=== PATIENT | female | born 1930 | race Caucasian/White ===

== ENCOUNTER 2017-06-05 17:03 | Observation (INO) ==
--- NOTE | 2017-06-05 17:28 | Emergency Department Note ---
Disposition Clinical Impression: Hyperkalemia Stroke Qualifiers: CVA mechanism: other Qualified Code(s): I63.8 - Other cerebral infarction Leukocytosis Qualifiers: Leukocytosis type: unspecified Qualified Code(s): D72.829 - Elevated white blood cell count, unspecified Disposition: Admitted As Inpatient Condition: Fair Forms: ED Satisfaction Letter Time of Disposition: 18:51 Neuro HPI - General Chief Complaint: ED Neuro Symptoms/Deficit Stated Complaint: AMS Source: family Limitations: no limitations Nursing Notes Reviewed: Yes Vital Signs Reviewed: Yes - History of Present Illness HPI Narrative: 86-year-old female past medical history of hypertension, TIAs presents to the emergency department with a last known well at 3:00 right before being seen at the eye doctor. Patient is having left-sided facial weakness, slurred and dysarthric speech, right leg weakness. Patient is currently not on any blood thinners at this time. Patient is on aspirin. - Related Data Home Medications: Home Medications Medication Instructions Recorded Confirmed Aspirin [Adult Low Dose Aspirin EC] 81 mg PO DAILY 10/02/15 10/31/15 Calcium Carbonate/Vitamin D3 1 tab PO DAILY 10/02/15 10/31/15 [Calcium 600 + Vit D Tablet] Glucosamine HCl/Chondr [place] A Na 1 tab PO BID 10/02/15 10/31/15 [[facility] Glucosamine-Chondr Tablet] Rob[place]-3/Dha/Epa/Fish Oil [Fish Oil 1,500 mg PO DAILY 10/02/15 10/31/15 Dr 500 mg Softgel] Vit A/Vit C/Vit E/Zinc/Copper 1 tab PO DAILY 10/02/15 10/31/15 [Preservision Areds Tablet] Lidocaine [Lidoderm] 1 patch TP DAILY 10/31/15 10/31/15 Metoprolol [Lopressor] 25 mg PO BID 10/31/15 10/31/15 traMADol [Ultram] 50 mg PO TID PRN 10/31/15 10/31/15 Previous Rx's Medication Instructions Recorded Atorvastatin [Lipitor] 40 mg PO HS #30 tablet 11/02/15 Allergies/Adverse Reactions: Allergies Allergy/AdvReac Type Severity Reaction Status Date / Time Cyproheptadine Allergy Rash Verified 10/31/15 19:21 [From Periactin] Erythromycin Base Allergy Rash Verified 10/31/15 19:21 [From Ilosone] NSAIDS (Non-Steroidal Allergy Rash Verified 10/31/15 19:21 Anti-Inflamma nutri sweet Allergy Rash Uncoded 10/02/15 12:16 All systems ED: reviewed and negative except as stated. Review of Systems: As Per HPI Neurological: Reports: weakness, confusion. Denies: headache Past Medical History - Past Medical History Medical history: Reports: hypertension, TIA, other Surgical history: Reports: cancer surgery (precancerous rectal lesions), cataract Psychiatric history: Reports: no psych history - Social History Smoking Status: Never smoker Smokeless Tobacco Status: No Alcohol use: Reports: none Drug use: Reports: none Physical Exam General: Well Appearing, in no acute distress Head: autraumatic, EOMI, no conjuncitval pallor, no scleral icterus, Mouth: oral mucous membranes moist Neck: neck soft, trachea midline Chest:: Equal chest wall rise Lungs: Normal lungs sounds bilaterally, no wheezes, no respiratory distress Heart: normal heart sounds, normal rate and rhythm, Abdomen: soft, non-tender, no rigidity, no guarding, no rebdound tenderness Lower Extremities: no pedal edema, calves non-tender Integumentary: Skin warm, dry, and intact Neuro: Alert and oriented to person, place, time. See NIH stroke scale Psych: normal affect, normal mood - General Limitations: no limitations General appearance: alert, in no apparent distress Course Vital Signs Temperature 98 F 06/05/17 17:08 Pulse Rate 67 06/05/17 17:08 Respiratory Rate 18 06/05/17 17:08 Blood Pressure 172/85 06/05/17 17:08 O2 Sat by Pulse Oximetry 98 06/05/17 17:08 Temperature 98 F 06/05/17 17:08 Pulse Rate 97 06/05/17 18:14 Respiratory Rate 16 06/05/17 18:14 Blood Pressure 198/97 06/05/17 18:14 O2 Sat by Pulse Oximetry 96 06/05/17 18:14 Oxygen Delivery Oxygen Delivery Room Air Neuro Symptoms/Deficit - MDM Narrative Medical decision making narrative: 86-year-old female presents to the emergency department with a NIH stroke scale of 3. Her last well was at 15:00. We initiated stroke protocol. I have discussed risks and benefits of using TPA. Patient has not had any recent surgeries. Patient is not on blood thinners. CT of the head without contrast was obtained and did not reveal any acute intracranial changes. Neurologist from [facility] was consulted and there was some confusion as to the true last known well as there was reports of slurring of speech at 1330. The neurologist recommended a CTA of her head and neck to be performed. Patient does have a leukocytosis of 15.2 here. I do not suspect an infection at this time. Patient is not tachycardic and does not meet any other criteria for source of infection. Patient denies any symptoms of dysuria. I have however, ordered a urinalysis on this patient. Results of this urinalysis are pending. I spoke with Dr. De Anda, the neurologist here, and he agreed to come by and see the patient tomorrow. I spoke with Dr. Shepherd, the admitting hospitalist, she agreed to accept the patient for admission. Patient was hemodynamically stable and not in any acute distress at time of admission. I spoke with the family and patient at bedside and they agreed with the plan to keep her here. We are currently pending imaging of a CTA of the head and neck as well as urinalysis. Head CT 06/05/17 17:24 IMPRESSION: No acute intracranial abnormality. If there is ongoing concern for acute infarct, MRI is more sensitive. Stable mild cerebral volume loss and mild-moderate white matter disease, the latter of which likely reflects sequela of chronic microvascular ischemia. Critical results were called by Dr. Austin Curtis to Armin Spangler on 06/05/2017 at 17:49. D/ / 06/05/2017 17:52:23 Austin Curtis / susana Interpreting Provider: Austin Curtis Vital Signs Temperature 98 F 06/05/17 17:08 Pulse Rate 67 06/05/17 17:08 Respiratory Rate 18 06/05/17 17:08 Blood Pressure 172/85 06/05/17 17:08 O2 Sat by Pulse Oximetry 98 06/05/17 17:08 Temperature 98 F 06/05/17 17:08 Pulse Rate 97 06/05/17 18:14 Respiratory Rate 16 06/05/17 18:14 Blood Pressure 198/97 06/05/17 18:14 O2 Sat by Pulse Oximetry 96 06/05/17 18:14 Oxygen Delivery Oxygen Delivery Room Air - Medical Records Medical records reviewed: Yes I reviewed the patient's medical records. - Lab Data Lab results reviewed: Yes I reviewed the patient's lab results. Result diagrams: 06/05/17 17:53 06/05/17 17:53 Lab Results 06/05/17 06/05/17 06/05/17 Range/Units 17:07 17:53 17:53 WBC 15.2 H (4.3-11.1) K/mcL RBC 4.89 (3.82-4.97) M/mcL Hgb 14.7 (11.5-15.4) g/dL Hct 45.8 H (35.3-44.9) % MCV 93.7 (83.0-100.0) fL MCH 30.1 (28.0-33.3) pg MCHC 32.1 (31.6-35.5) g/dL RDW 14.2 (11.5-14.5) % Plt Count 183 (140-400) K/mcL MPV 11.2 (9.4-12.4) fL Immature Gran % 0.5 (0-4) % Seg Neutrophils % 59.7 % Lymphocytes % 25.7 % Monocytes % 13.1 % Eosinophils % 0.7 % Basophils % 0.3 % Neutrophils # 9.1 H (1.6-8.9) K/mcL Lymphocytes # 3.9 (0.6-4.6) K/mcL Monocytes # 2.0 H (0.0-1.3) K/mcL Eosinophils # 0.1 (0.0-0.6) K/mcL Basophils # 0.1 (0.0-0.2) K/mcL Sodium 140 (136-145) mEq/L Potassium 5.0 H (3.5-4.5) mEq/L Chloride 106 (98-109) mEq/L Carbon Dioxide 26 (19-29) mEq/L BUN 21 H (7-20) mg/dL Creatinine 1.06 (0.57-1.11) mg/dL Est GFR ( Amer) 59 L (> 60) Est GFR (Non-Af Amer) 49 L (> 60) BUN/Creatinine Ratio 20 (6-26) Glucose 93 (70-99) mg/dL POC Glucose 85 (58-89) Calculated Osmolality 293 (280-300) Calcium 10.1 (8.6-10.8) mg/dL Troponin I (0-0.03) ng/mL 06/05/17 Range/Units 17:53 WBC (4.3-11.1) K/mcL RBC (3.82-4.97) M/mcL Hgb (11.5-15.4) g/dL Hct (35.3-44.9) % MCV (83.0-100.0) fL MCH (28.0-33.3) pg MCHC (31.6-35.5) g/dL RDW (11.5-14.5) % Plt Count (140-400) K/mcL MPV (9.4-12.4) fL Immature Gran % (0-4) % Seg Neutrophils % % Lymphocytes % % Monocytes % % Eosinophils % % Basophils % % Neutrophils # (1.6-8.9) K/mcL Lymphocytes # (0.6-4.6) K/mcL Monocytes # (0.0-1.3) K/mcL Eosinophils # (0.0-0.6) K/mcL Basophils # (0.0-0.2) K/mcL Sodium (136-145) mEq/L Potassium (3.5-4.5) mEq/L Chloride (98-109) mEq/L Carbon Dioxide (19-29) mEq/L BUN (7-20) mg/dL Creatinine (0.57-1.11) mg/dL Est GFR ( Amer) (> 60) Est GFR (Non-Af Amer) (> 60) BUN/Creatinine Ratio (6-26) Glucose (70-99) mg/dL POC Glucose (58-89) Calculated Osmolality (280-300) Calcium (8.6-10.8) mg/dL Troponin I 0.00 (0-0.03) ng/mL - Radiology Data Radiology results reviewed: Yes I reviewed the patient's radiology results. - EKG Data EKG attestation: Yes I reviewed and interpreted this EKG. EKG results narrative: 17:21 Ventricular rate 63 bpm, UT interval 163 ms, QRS duration 140 ms, QTC 430 ms, QTC [address] changes on his electrocardiogram, left axis deviation. There is no ST changes noted they provides evidence of ischemia There is a right bundle branch block. This EKG is the same as her previous one performed on October 31, 2015 NIH Stroke Scale - Level of Consciousness LOC: Alert - LOC Questions LOC Questions: Answers both correctly - LOC Commands LOC Commands: Performs both correctly - Best Gaze Best Gaze: Normal - Visual Visual: No visual loss - Facial Palsy Facial Palsy: Minor asymmetry on smiling, flattened nasolabial fold - Motor Arms Motor Arm-Left: No drift for 10 seconds Motor Arm-Right: No drift for 10 seconds - Motor Legs Motor Leg-Left: No drift for 5 seconds Motor Leg-Right: Drift, does NOT hit bed - Limb Ataxia Limb Ataxia: Normal, No Ataxia - Sensory Sensory: Normal - Best Language Best Language: No aphasia - Dysarthria Dysarthria: Mild, slurs some words - Extinction and Inattention Extinction and Inattention: Normal - NIHSS Total Score NIHSS Total Score: 3 TPA Checklist - LKW: 3-4.5 hrs Add. Warnings/Precautions Patient/family understanding: The patient/family members have been counseled and understood the risk, benefit , and alternatives of treatment.
--- NOTE | 2017-06-05 17:47 | Emergency Department Note ---
START Narrative - START START: I examined this patient and my medical decision-making was reviewed with the Resident Physician. I agree with the documented findings, disposition and treatment plan as described except to the extent set forth below. Stroke symptoms started 1500, NIH 3. Stroke alert called, although pt not a candidate for tPA given NIH of only 3 and rapidly improving deficits.
[2017-06-05 18:00] LABS: Basophils # 0.1 K/mcL (0.0-0.2); Basophils % 0.3 %; Eosinophils # 0.1 K/mcL (0.0-0.6); Eosinophils % 0.7 %; Hematocrit 45.8 % (35.3-44.9); Hemoglobin 14.7 g/dL (11.5-15.4); Immature Granulocytes % 0.5 % (0-4); Lymphocytes # 3.9 K/mcL (0.6-4.6); Lymphocytes % 25.7 %; Mean Corpuscular HGB Conc 32.1 g/dL (31.6-35.5); Mean Corpuscular Hemoglobin 30.1 pg (28.0-33.3); Mean Corpuscular Volume 93.7 fL (83.0-100.0); Mean Platelet Volume 11.2 fL (9.4-12.4); Monocytes % 13.1 %; Neutrophils # 9.1 K/mcL (1.6-8.9); Platelet Count 183 K/mcL (140-400); Red Blood Count 4.89 M/mcL (3.82-4.97); Red Cell Distribution Width 14.2 % (11.5-14.5); Segmented Neutrophils % 59.7 %
[2017-06-05 18:14] LABS: Calcium 10.1 mg/dL (8.6-10.8)
[2017-06-05 19:12] LABS: Prothrombin Time 11.1 Seconds (9.4-12.1)
[2017-06-05 19:15] LABS: Activated Partial Thrombo Time 26.7 Seconds (26.0-36.0)
[2017-06-05] MEDS ORDERED: Naloxone 0.4 MG/ML INJ IVP PRN (19:49)
[2017-06-05 20:38] LABS: Bilirubin,Urine Negative (Negative); Blood,Urine Negative (Negative); Clarity,Urine Clear (Clear); Color,Urine Yellow (Yellow); Glucose,Urine (UA) Normal (Normal); Ketones,Urine 15 mg/dL (Negative); Leukocyte Esterase,Urine Negative (Negative); Nitrite,Urine Negative (Negative); PH,Urine 6.5 pH Units (5.0-8.0); Protein,Urine Negative (Neg-Trace); Specific Gravity,Urine 1.026 (1.010-1.025); Urobilinogen,Urine Normal (Normal)
--- NOTE | 2017-06-05 21:22 | Internal Med History&Physical ---
Date of Encounter: 06/05/17 Time of Encounter: 21:22 Assessment and Plan (1) TIA (transient ischemic attack) Current visit: Yes Status: Acute Patient presented with slurred speech, dysarthria, RLE weakness, Symptoms have mostly resolved at my time of review Brain MRi shows some possible encephalitic picture Patient has no neurologic symptoms suggestive of this, no fever, no alteration in consciousness Head and Neck CTA with no obstruction/aneurysm Obtain ECHO Neuro eval PTOT and Speech eval Continue NIHSS q4 for now Bedside swallow test and patient may be fed if she passes the test Continue home dose of ASA and Lipitor Qualifiers: Transient cerebral ischemia type: unspecified Qualified Code(s): G45.9 - Transient cerebral ischemic attack, unspecified (2) Hypertensive urgency Current visit: Yes Status: Acute Resume home doses of metoprolol Hydralazine 10mg qh prn Increase metoprolol and add amlodipine as indicated Continue to monitor (3) Dementia Current visit: Yes Status: Chronic Resume home meds Qualifiers: Dementia type: Alzheimer's disease Alzheimer's disease onset: unspecified onset Dementia behavioral disturbance: without behavioral disturbance Qualified Code(s): G30.9 - Alzheimer's disease, unspecified; F02.80 - Dementia in other diseases classified elsewhere without behavioral disturbance; F02.80 - Dementia in other diseases classified elsewhere without behavioral disturbance; F02.80 - Dementia in other diseases classified elsewhere without behavioral disturbance (4) Leukocytosis Current visit: Yes Status: Acute Possibly from stress No focus of infection, no fever UA is ordered and pending, will follow Rpt CBC am Qualifiers: Leukocytosis type: unspecified Qualified Code(s): D72.829 - Elevated white blood cell count, unspecified (5) Hyperkalemia Current visit: Yes Status: Acute K 5.0 on arrival Renal function otherwise at baseline 15gm kayexalate given Rpt Chem a.m Internal Medicine - H&P: HPI Chief complaint: Neurologic symptoms Admitted From: Home Plans for Post Hospital Care: Home History of present illness: Ms. Byrnes is a 86 year old female Seen and evaluated at bedside with daughter and Said to be in her usual state of health till about 1500 this afternoon at the ophthalmologists where she developed slurred speech , difficulty finding words and RLE weakness. Per her he had to assist her in getting into the car. Her neurologic symptoms have mostly resolved at time of eval. She has a history of similar symptoms about a year and a half ago, and is on ASA and Lipitor at home Apart from being hard of hearing, patient denies any other complains, ROS is unremarkable She has had uncontrolled blood pressure since arrival Physical exam in ER at time of arrival revealed NIHSS of 3 for facial droop, speech deficit and extremity weakness. [facility] neurology consulted, no indication for TPA Work up significant for mild hyperkalemia and leukocytosis Past Med Surg Social Fam HX - Past Medical History Medical history: hypertension, TIA, other Psychiatric history: no psych history - Past Surgical History Surgical History: cancer surgery (precancerous rectal lesions), cataract - Social History Smoking Status: Never smoker Smokeless Tobacco Status: No Alcohol use: none Drug use: none - Family History Mother Adopted: No Living Status: Hx Family Cancer: Yes (colon) Father Living Status: Hx Family Cardiac Disorders: Yes Internal Medicine - H&P: Meds Aspirin [Adult Low Dose Aspirin EC] 81 mg PO DAILY 10/02/15 [History] Calcium Carbonate/Vitamin D3 [Calcium 600 + Vit D Tablet] 1 tab PO DAILY [History] Vit A/Vit C/Vit E/Zinc/Copper [Preservision Areds Tablet] 1 tab PO DAILY [History] Lidocaine [Lidoderm] 1 patch TP DAILY 10/31/15 [History] Metoprolol [Lopressor] 25 mg PO BID 10/31/15 [History] Atorvastatin [Lipitor] 40 mg PO HS #30 tablet 11/02/15 [Rx] Donepezil [Aricept] 10 mg PO HS 06/05/17 [History] 3 Allergy/AdvReac Type Severity Reaction Status Date / Time Cyproheptadine Allergy Rash Verified 10/31/15 19:21 [From Periactin] Erythromycin Base Allergy Rash Verified 10/31/15 19:21 [From Ilosone] NSAIDS (Non-Steroidal Allergy Rash Verified 10/31/15 19:21 Anti-Inflamma nutri sweet Allergy Rash Uncoded 10/02/15 12:16 All Systems PM: A 10-system review of systems was performed and is negative for pertinent findings except as documented above in the HPI. - Constitutional Constitutional: as per HPI - EENT Eyes: as per HPI Nose, mouth and throat: as per HPI - Cardiovascular Cardiovascular ROS IM: as per HPI - Respiratory Respiratory: as per HPI - Gastrointestinal Gastrointestinal: as per HPI - Genitourinary Genitourinary: as per HPI - Musculoskeletal Musculoskeletal ROS IM: as per HPI - Integumentary Integumentary IM: as per HPI - Neurological Neurological ROS: as per HPI - Hematologic/Lymphatic Hematologic/Lymphatic: as per HPI - Constitutional Vitals: Temp Pulse Resp BP Pulse Ox 98 F 66 16 200/90 95 06/05/17 17:08 06/05/17 19:15 06/05/17 19:15 06/05/17 19:15 06/05/17 19:15 General appearance: Present: A&O X 2, pleasant, no acute distress - Head Head exam: Present: atraumatic, normocephalic - Eye Eye exam: Present: PERRL, conjuntiva pink, sclera anicteric - ENT ENT exam: Present: mucous membranes moist - Neck Additional comments: No carotid bruit - Respiratory Respiratory exam: Present: CTAB. Absent: accessory muscle use, rales, rhonchi, wheezes - Cardiovascular Cardiovascular exam: Present: RRR, +S1, +S2. Absent: diastolic murmur, gallop, rubs, systolic murmur - GI/Abdominal GI/Abdominal exam: Present: normal bowel sounds, soft, no peritoneal signs. Absent: distended, tenderness - Extremities Exam Extremities exam: Present: warm, radial pulses palpable and symmetrical. Absent : calf tenderness, cyanotic, pedal edema - Neurological Exam Neurological exam: Present: alert, CN II-XII intact, strengths equal and symetr throughout. Absent: pronater drift, facial droop, speech deficit - Skin Skin exam: Present: dry, intact Internal Med - H&P Results - Labs CBC & Chem 7: 06/05/17 17:53 06/05/17 17:53 Labs: Urine 06/05/17 Range/Units 20:30 Urine Color Yellow (Yellow) Urine Clarity Clear (Clear) Urine pH 6.5 (5.0-8.0) pH Units Ur Specific [place] 1.026 H (1.010-1.025) Urine Protein Negative (Neg-Trace) mg/dL Urine Glucose (UA) Normal (Normal) mg/dL - Impressions ITS Impressions Brain MRI 06/05/17 19:51 IMPRESSION: No acute infarct, intracranial hemorrhage, or significant mass effect. Abnormal T2/FLAIR signal within bilateral insular cortex. Findings could represent nonspecific infectious and/or inflammatory encephalitis, or sequela of prior ischemia. Possibility of herpes encephalitis should be excluded. Clinical correlation and/or correlation with CSF sampling is recommended. Moderate amount of nonspecific T2 hyperintense white matter lesions, which are most often attributed to chronic small vessel ischemic white matter disease. D/ / Jose Card MD / Jose Card MD Interpreting Provider: Jose Card MD - Stroke Is the patient on any antithrombotics?: Yes Are there any contradictions to antithrombotics?: No Contraindication Not Initiating IV-Tpa: Not Indicated - Symptoms Rapidly Improving Onset of Symptoms Date: 06/05/17 Onset of Symptoms Time: 15:00 Symptom Onset Unknown: No
[2017-06-06] MEDS ORDERED: *HR* Enoxaparin 40 MG/0.4 ML SYRINGE SQ SCH (06:00)
[2017-06-06] MEDS: amLODIPine 5 MG TABLET PO SCH ×2 (06:08→10:29)
[2017-06-06 06:48] LABS: Basophils # 0.1 K/mcL (0.0-0.2); Basophils % 0.3 %; Eosinophils # 0.1 K/mcL (0.0-0.6); Eosinophils % 0.9 %; Hemoglobin 14.1 g/dL (11.5-15.4); Immature Granulocytes % 0.5 % (0-4); Lymphocytes # 3.7 K/mcL (0.6-4.6); Lymphocytes % 25.1 %; Mean Corpuscular Hemoglobin 29.5 pg (28.0-33.3); Mean Corpuscular Volume 92.1 fL (83.0-100.0); Mean Platelet Volume 11.4 fL (9.4-12.4); Monocytes # 1.9 K/mcL (0.0-1.3); Monocytes % 13.1 %; Neutrophils # 8.8 K/mcL (1.6-8.9); Platelet Count 188 K/mcL (140-400); Red Blood Count 4.78 M/mcL (3.82-4.97); Red Cell Distribution Width 14.1 % (11.5-14.5); Segmented Neutrophils % 60.1 %
[2017-06-06 06:59] LABS: BUN/Creatinine Ratio 18 (6-26); Blood Urea Nitrogen 18 mg/dL (7-20); Calcium 9.5 mg/dL (8.6-10.8); Carbon Dioxide 24 mEq/L (19-29); Chloride 110 mEq/L (98-109); Cholesterol 100 mg/dL (< 200); Glucose 99 mg/dL (70-99); HDL Cholesterol 33 mg/dL (40-59); LDL Cholesterol,Calculated 53 mg/dL (0-99); Osmolality,Calculated 292 (280-300); Potassium 4.9 mEq/L (3.5-4.5); Sodium 140 mEq/L (136-145); Triglycerides 72 mg/dL (< 150); eGFR For African Americans > 60 (> 60); eGFR For Non-African Americans 53 (> 60)
[2017-06-06 07:19] LABS: Thyroid Stimulating Hormone 3.231 mcIU/mL (0.350-4.840)
[2017-06-06] MEDS: Cholecalciferol (D-3) 1,000 UNIT TABLET PO SCH (10:27)
[2017-06-06] MEDS: Aspirin Enteric Coated 81 MG Tablet PO SCH (10:27)
[2017-06-06] MEDS: Multivit/Ca/Min/Fe/FA 1 TAB TABLET PO SCH (10:27)
--- NOTE | 2017-06-06 12:02 | Internal Med Progress Note ---
<Rasta Vega - Last Filed: 06/06/17 15:13> Date of Encounter: 06/06/17 Time of Encounter: 11:15 - Assessment and plan (1) Transient neurological symptoms Current Visit: Yes Status: Acute Assessment and plan: Patient presented with slurred speech, dysarthria, and RLE weakness Found to be hypertensive with blood pressure as high as 222 systolic Symptoms had mostly resolved by the time she was seen by the better Brain MRI showed nonspecific infectious/inflammatory encephalitis versus sequela of prior ischemia. No CVA/TIA identified acutely Patient has been afebrile, without altered consciousness, no nuchal rigidity, no photophobia would be suggestive of encephalitis Head and Neck CTA with no obstruction/aneurysm Echo showed EF 65%, mild concentric left hypertrophy, mild left ventricular diastolic dysfunction PT recommends SNF/ECF Patient underwent speech evaluation that was not concerning Neurology has been consulted and appreciate recommendations for continued management/care Continue home dose of ASA and Lipitor Consider discontinuation of Lipitor given patient age and low-cholesterol (2) Hypertensive urgency Current Visit: Yes Status: Acute Assessment and plan: Patient presented with blood pressure of 222/94 and continue to have elevated blood pressure She was given her home dose metoprolol as well as started on amlodipine Over the next 24 hours resolution of her hypertension seen Hypertensive urgency versus hypertensive encephalopathy Hydralazine 10mg qh prn Metoprolol was increased Amlodipine 10 mg by mouth daily added Continue to monitor (3) Hyperkalemia Current Visit: Yes Status: Acute Assessment and plan: Patient had potassium 5.0 at admission Repeat potassium 4.9 Patient given 15 g Kayexalate at admission On recheck potassium in the morning consider additional Kayexalate if needed (4) Dementia Current Visit: Yes Status: Chronic Assessment and plan: Patient has history of dementia Currently alert and oriented 3 Resume home medications Qualifiers: Dementia type: Alzheimer's disease Alzheimer's disease onset: unspecified onset Dementia behavioral disturbance: without behavioral disturbance Qualified Code(s): G30.9 - Alzheimer's disease, unspecified; F02.80 - Dementia in other diseases classified elsewhere without behavioral disturbance; F02.80 - Dementia in other diseases classified elsewhere without behavioral disturbance; F02.80 - Dementia in other diseases classified elsewhere without behavioral disturbance (5) DVT prophylaxis Current Visit: No Status: Acute Assessment and plan: Lovenox 30 mg subcutaneous daily - Subjective Interval history: Patient seen and examined with and daughter in attendance. They report patient appears slightly weaker and slower than her baseline, but is otherwise back to normal. Patient denies having headaches, photophobia, phonophobia, neck pain, neck stiffness, altered mentation, or fever/chills. She states she overall feels well, though remembers what happened the day before. - Constitutional Vitals: Temp Pulse Resp BP Pulse Ox 98.0 F 58 12 152/86 98 06/06/17 11:37 06/06/17 11:37 06/06/17 11:37 06/06/17 11:37 06/06/17 11:37 General appearance: Present: A&O X 2, pleasant, no acute distress Exam: General: Cooperative, pleasant, no acute distress, alert and oriented 3, answers questions appropriately HEENT: Normocephalic, atraumatic, neck supple, trachea midline, no nuchal rigidity, Conjunctiva pink, sclera anicteric, EOMI, PERRL, oral mucosa moist, no orophargeal erythema or exudates Respiratory: No accessory muscle usage, clear to auscultation bilaterally, no wheezes/rhonchi/rales appreciated Cardiovascular: Regular rate and rhythm, S1 and S2 present, no murmurs/rubs/ gallops/clicks appreciated GI/abdominal: Nondistended, nontender, soft, normal bowel sounds, no peritoneal signs Extremities: No calf tenderness, noncyanotic, no pedal edema appreciated, warm, lower extremity pulses palpable and symmetrical Neurological: Alert and oriented 3, no facial droop, no focal deficits, cranial nerves II through XII grossly intact bilaterally, rapid alternating movements smooth with good benito, finger to nose smooth and accurate, sensation to gross touch intact in upper and lower extremities bilaterally, strength 5/5 in upper and lower extremities bilaterally, DTRs 2/4 in Achilles, patellar, brachioradialis, biceps, and triceps, pronator drift negative Internal Medicine: Result - Labs CBC & Chem 7: 06/06/17 06:32 06/06/17 06:32 Labs: Short CBC 06/06/17 Range/Units 06:32 WBC 14.6 H (4.3-11.1) K/mcL Hgb 14.1 (11.5-15.4) g/dL Hct 44.0 (35.3-44.9) % Plt Count 188 (140-400) K/mcL Neutrophils # 8.8 (1.6-8.9) K/mcL BMP 06/06/17 06:32 Sodium 140 Potassium 4.9 H Chloride 110 H Carbon Dioxide 24 BUN 18 Creatinine 0.99 Glucose 99 Calcium 9.5 Urine 06/05/17 Range/Units 20:30 Urine Color Yellow (Yellow) Urine Clarity Clear (Clear) Urine pH 6.5 (5.0-8.0) pH Units Ur Specific [place] 1.026 H (1.010-1.025) Urine Protein Negative (Neg-Trace) mg/dL Urine Glucose (UA) Normal (Normal) mg/dL - ABG Interpretation ABG results: PT/INR, D-dimer PT 11.1 Seconds (9.4-12.1) 06/05/17 18:54 - Impressions Impressions Brain MRI 06/05/17 19:51 IMPRESSION: 1. No acute infarct, intracranial hemorrhage, or significant mass effect. 2. Abnormal T2/FLAIR signal within bilateral insular cortex. Findings could represent nonspecific infectious and/or inflammatory encephalitis, or sequela of prior ischemia. Possibility of herpes encephalitis should be excluded. Clinical correlation and/or correlation with CSF sampling is recommended. 3. Moderate amount of nonspecific T2 hyperintense white matter lesions, which are most often attributed to chronic small vessel ischemic white matter disease. The findings were sent to the [facility] on 06/05/2017to be communicated to a licensed caregiver. D/ / 06/05/2017 21:28:03 Jose Card MD / ben Interpreting Provider: Jose Card MD - Stroke Is the patient on any antithrombotics?: No Are there any contradictions to antithrombotics?: No Contraindication Not Initiating IV-Tpa: Not Indicated - Symptoms Rapidly Improving Consult Discharge Plan - Plan Referrals: Alexa Prado CNP [Primary Care Provider] - 06/11/17 11:00 am <Mynor [place] H - Last Filed: 06/06/17 16:24> Date of Encounter: 06/06/17 - Constitutional Vitals: Temp Pulse Resp BP Pulse Ox 98.3 F 86 14 125/64 96 06/06/17 15:01 06/06/17 15:01 06/06/17 15:01 06/06/17 15:01 06/06/17 15:01 Internal Medicine: Result - Labs CBC & Chem 7: 06/06/17 06:32 06/06/17 06:32 Labs: Short CBC 06/06/17 Range/Units 06:32 WBC 14.6 H (4.3-11.1) K/mcL Hgb 14.1 (11.5-15.4) g/dL Hct 44.0 (35.3-44.9) % Plt Count 188 (140-400) K/mcL Neutrophils # 8.8 (1.6-8.9) K/mcL BMP 06/06/17 06:32 Sodium 140 Potassium 4.9 H Chloride 110 H Carbon Dioxide 24 BUN 18 Creatinine 0.99 Glucose 99 Calcium 9.5 Urine 06/05/17 Range/Units 20:30 Urine Color Yellow (Yellow) Urine Clarity Clear (Clear) Urine pH 6.5 (5.0-8.0) pH Units Ur Specific [place] 1.026 H (1.010-1.025) Urine Protein Negative (Neg-Trace) mg/dL Urine Glucose (UA) Normal (Normal) mg/dL - ABG Interpretation ABG results: PT/INR, D-dimer PT 11.1 Seconds (9.4-12.1) 06/05/17 18:54 - Impressions Impressions Brain MRI 06/05/17 19:51 IMPRESSION: 1. No acute infarct, intracranial hemorrhage, or significant mass effect. 2. Abnormal T2/FLAIR signal within bilateral insular cortex. Findings could represent nonspecific infectious and/or inflammatory encephalitis, or sequela of prior ischemia. Possibility of herpes encephalitis should be excluded. Clinical correlation and/or correlation with CSF sampling is recommended. 3. Moderate amount of nonspecific T2 hyperintense white matter lesions, which are most often attributed to chronic small vessel ischemic white matter disease. The findings were sent to the [facility]iology [facility] Communication [facility] on 06/05/2017to be communicated to a licensed caregiver. D/ / 06/05/2017 21:28:03 Jose Card MD / ben Interpreting Provider: Jose Card MD Echocardiogram 06/06/17 19:51 Impressions: LVEF 65%. Normal LV chamber size and function. Mild concentric left ventricular hypertrophy. Mild left ventricular diastolic dysfunction. Normal right ventricular structure and function. Mild pulmonic regurgitation. No evidence of pulmonary hypertension. Left Ventricular Wall Motion: Rest Echo Findings All wall segments showed normal motion. Findings: Study Quality * Technically adequate exam. ECG Findings * Normal sinus rhythm. Left Ventricle * LVEF 65%. * Normal LV chamber size and function. * Mild concentric left ventricular hypertrophy. * Mild left ventricular diastolic dysfunction. Right Ventricle * Normal right ventricular structure and function. Left Atrium * Mildly dilated left atrium. Right Atrium * Normal right atrial size. Aortic Valve * Trileaflet aortic valve. * Mildly sclerotic aortic valve leaflets. * No aortic regurgitation. * No aortic stenosis. Mitral Valve * Mild mitral annular calcification * Normal mitral valve function. * No mitral regurgitation. * No mitral stenosis. Tricuspid Valve * Normal tricuspid valve structure and function. * Trace tricuspid regurgitation. * No evidence of pulmonary hypertension. Pulmonic Valve * Normal pulmonic valve structure. * Mild pulmonic regurgitation. IVC * Normal IVC dimensions and inspiratory collapse. Aorta * Normally sized aortic root. Pericardium * There is a trivial pericardial effusion present. Pulmonary Artery * Normal visualized portions of the main pulmonary artery. - Attending Attestation Possible TIA Not showing symptoms of encephalitis Neurology recommendations appreciated I examined this patient and my medical decision-making was reviewed with the Resident Physician. I agree with the documented findings, disposition and treatment plan as described except to the extent set forth below.
--- NOTE | 2017-06-06 13:10 | Electrocardiograph Report ---
[place] [id number] Test Date: 2017-06-05 Pat Name: Krista Byrnes Department: 103 Room: [facility] Gender: F Box Car Bracer: VENITA : [id number] Requested By: Armin Spangler Order Number: [id number] Reading MD: Priyank Gama MD Measurements Intervals [place] Rate: 63 P: 62 AK: 163 QRS: -3 QRSD: 140 T: 16 QT: 430 QTc: 437 Interpretive Statements SINUS RHYTHM RIGHT BUNDLE BRANCH BLOCK Electronically Signed On 06-06-2017 13:09:07 EST by Priyank Gama MD
--- NOTE | 2017-06-06 18:32 | Neurology - Consult Note ---
Date of Encounter: 06/06/17 Time of Encounter: 18:21 Assessment and Plan (1) TIA (transient ischemic attack) Current Visit: Yes Status: Acute Patient has transient mental status changes, speech difficulty lasting less than few hours with rapid improvement. Patient was found to have elevated blood pressure which is likely contributing. 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 MRI of brain reviewed and she does have moderate white matter T2/FLAIR signal changes likely small vessel ischemic changes. Small patchy T2/FALIR changes at the bilateral insula cortex more consistent with small vessel ischemia. Also this area can be affected in HSV the signal changes tend to be wider spread than what is shown on this MRI. Clinical symptoms, physical examination and radiological findings not consistent with HSV encephalitis. CSF study not necessary. No anti viral IV or oral therapy needed in my opinion. Will recommend an routine EEG in AM to assess possibility of partial seizure, although this is thought to be less likely. Please continue medical and supportive. Patient needs social placement evaluation since she lives with elderly who may have difficulty taking care of her due to her medical illness and weakness. Qualifiers: Transient cerebral ischemia type: unspecified Qualified Code(s): G45.9 - Transient cerebral ischemic attack, unspecified History of Present Illness Chief complaint: altered mental status HPI: Ms. Byrnes is a 86 year old female with PMH significant for HTN, history of TIA, weakness, Parkinson features, history of CVA who developed acute onset of mental status changes difficulty falling commands and weakness. She was initially admitted for work up for possible stroke. Patient's provided current illness. He brought the patient to an eye doctors yesterday. Apparently, during the testing, noticed the patient was not able to follow eye doctor's commands during eye testing. The more she was told to do the less she was able to follow. When they get out to the car the patient was found to have weakness and her behavior changed and she was not able to keep conversation and she would say half sentence and would drift away. She was also weak and he has to life her legs to get into the car. Initial CT of head showed no acute intracranial abnormality. She also had CTA of neck and brain showing no significant arterial stenosis. She completed an MRI of brain today with the following report: MR/MR head/brain wo con IMPRESSION: No acute infarct, intracranial hemorrhage, or significant mass effect. Abnormal T2/FLAIR signal within bilateral insular cortex. Findings could represent nonspecific infectious and/or inflammatory encephalitis, or sequela of prior ischemia. Possibility of herpes encephalitis should be excluded. Clinical correlation and/or correlation with CSF sampling is recommended. Moderate amount of nonspecific T2 hyperintense white matter lesions, which are most often attributed to chronic small vessel ischemic white matter At the time of this interview the patient has been doing better. She feels weak though but her speech and thought process have improved to her baseline per her . Patient states that she was trying to say something and all of a sudden she lost it. She has no headache, no fever.She does have elevated WBC. Patient's says that the patient had a similar episode about 2 years ago. Past Med Surg Social Fam HX - Past Medical History Medical history: hypertension, TIA, other Psychiatric history: no psych history - Past Surgical History Surgical History: cataract - Social History Smoking Status: Never smoker Smokeless Tobacco Status: No Alcohol use: none Drug use: none - Family History Mother Adopted: No Living Status: Hx Family Cancer: Yes (colon) Father Living Status: Hx Family Cardiac Disorders: Yes Medications and Allergies Aspirin [Adult Low Dose Aspirin EC] 81 mg PO DAILY 10/02/15 [History] Calcium Carbonate/Vitamin D3 [Calcium 600 + Vit D Tablet] 1 tab PO DAILY [History] Vit A/Vit C/Vit E/Zinc/Copper [Preservision Areds Tablet] 1 tab PO DAILY [History] Lidocaine [Lidoderm] 1 patch TP DAILY 10/31/15 [History] Metoprolol [Lopressor] 25 mg PO BID 10/31/15 [History] Atorvastatin [Lipitor] 40 mg PO HS #30 tablet 11/02/15 [Rx] Donepezil [Aricept] 10 mg PO HS 06/05/17 [History] 3 Allergy/AdvReac Type Severity Reaction Status Date / Time Cyproheptadine Allergy Rash Verified 10/31/15 19:21 [From Periactin] Erythromycin Base Allergy Rash Verified 10/31/15 19:21 [From Ilosone] NSAIDS (Non-Steroidal Allergy Rash Verified 10/31/15 19:21 Anti-Inflamma nutri sweet Allergy Rash Uncoded 10/02/15 12:16 All Systems: A 10-system review of systems was performed and is negative for pertinent findings except as documented above in the HPI. Physical Examination - Vital Signs Vital Signs: Initial Vital Signs Temp Pulse Resp BP Pulse Ox 98 F 67 18 172/85 98 06/05/17 17:08 06/05/17 17:08 06/05/17 17:08 06/05/17 17:08 06/05/17 17:08 - Constitutional General appearance: comfortable - Neurologic Sensorimotor examination: intact (Grossly intact. Patient is in sitting and drinking coffee. She has no discomforts. ) Detailed motor examination: other (Muscle power symmetrical and 5/5 but feels weak subjectively. able to stand up on her own) Motor examination - right side: 5/5: deltoids, biceps, triceps, wrist flexion, wrist extension, well servicing rig operator, hip flexors, tibialis Anterior, quadriceps, toe extension (EHL), plantarflexion Motor examination - left side: 5/5: deltoids, biceps, triceps, wrist flexion, wrist extension, hip flexors, well servicing rig operator, quadriceps, tibialis Anterior, toe extension (EHL), plantarflexion Detailed sensory examination: other (Grossly intact) Mental Status Examination: awake, alert, oriented to person, oriented to place, oriented to time, follows commands appropriately, answers questions appropriately, lucid, makes eye contact, follows simple commands Cranial nerve examination: PERRL, EOMI, visual delcid intact, corneal reflexes brisk symmetrically, sensory to face intact, mastication intact, no facial asymmetry is present, no dysarthria, hearing is intact symmetrically, soft palate elevates bilaterally upon phonation, gag reflex intact, flexes SCM and trapezius muscles symmetrically with full power, tongue protrudes midline, no atrophy or facial fasiculations present Results - Laboratory Findings CBC and BMP: 06/06/17 06:32 06/06/17 06:32 Abnormal lab findings: Abnormal lab results WBC 14.6 K/mcL (4.3-11.1) H 06/06/17 06:32 Monocytes # 1.9 K/mcL (0.0-1.3) H 06/06/17 06:32 Potassium 4.9 mEq/L (3.5-4.5) H 06/06/17 06:32 Chloride 110 mEq/L (98-109) H 06/06/17 06:32 Est GFR (Non-Af Amer) 53 (> 60) L 06/06/17 06:32 POC Glucose 108 (58-89) H 06/06/17 11:42 HDL Cholesterol 33 mg/dL (40-59) L 06/06/17 06:32 Ur Specific [place] 1.026 (1.010-1.025) H 06/05/17 20:30 Urine Ketones 15 mg/dL (Negative) H 06/05/17 20:30 Consult Discharge Plan - Plan Referrals: Johan,Alexa Salinas CNP [Primary Care Provider] - 06/11/17 11:00 am
[2017-06-07] MEDS: *HR* Enoxaparin 30 MG/0.3 ML SYRINGE SQ SCH (05:48)
[2017-06-07 06:22] LABS: Basophils % 0.3 %; Eosinophils # 0.2 K/mcL (0.0-0.6); Eosinophils % 1.4 %; Hematocrit 40.8 % (35.3-44.9); Hemoglobin 13.1 g/dL (11.5-15.4); Immature Granulocytes % 0.6 % (0-4); Lymphocytes # 3.5 K/mcL (0.6-4.6); Lymphocytes % 25.9 %; Mean Corpuscular HGB Conc 32.1 g/dL (31.6-35.5); Mean Corpuscular Hemoglobin 30.2 pg (28.0-33.3); Mean Platelet Volume 11.7 fL (9.4-12.4); Monocytes # 1.9 K/mcL (0.0-1.3); Monocytes % 13.9 %; Neutrophils # 7.9 K/mcL (1.6-8.9); Platelet Count 190 K/mcL (140-400); Red Blood Count 4.34 M/mcL (3.82-4.97); Red Cell Distribution Width 14.2 % (11.5-14.5); Segmented Neutrophils % 57.9 %
--- NOTE | 2017-06-07 06:33 | Internal Med Progress Note ---
Date of Encounter: 06/07/17 Time of Encounter: 05:50 - Assessment and plan (1) TIA (transient ischemic attack) Current Visit: Yes Status: Acute Assessment and plan: Patient presented with slurred speech, dysarthria, and RLE weakness Found to be hypertensive with blood pressure as high as 222 systolic Symptoms had mostly resolved by the time she was seen by the better Brain MRI showed nonspecific infectious/inflammatory encephalitis versus sequela of prior ischemia. No CVA/TIA identified acutely Patient has been afebrile, without altered consciousness, no nuchal rigidity, no photophobia would be suggestive of encephalitis Head and Neck CTA with no obstruction/aneurysm Echo showed EF 65%, mild concentric left hypertrophy, mild left ventricular diastolic dysfunction PT recommends SNF/ECF Patient underwent speech evaluation that was not concerning Neurology has been consulted and appreciate recommendations for continued management/care Plan for EEG today to evaluate for partial seizure Continue home dose of ASA and Lipitor Consider discontinuation of Lipitor given patient age and low-cholesterol Patient recommended for SNF/ECF placement upon discharge Qualifiers: Transient cerebral ischemia type: unspecified Qualified Code(s): G45.9 - Transient cerebral ischemic attack, unspecified (2) Hypertensive urgency Current Visit: Yes Status: Acute Assessment and plan: Patient presented with blood pressure of 222/94 and continue to have elevated blood pressure She was given her home dose metoprolol as well as started on amlodipine Over the next 24 hours resolution of her hypertension seen Hypertensive urgency versus hypertensive encephalopathy Hydralazine 10mg qh prn Metoprolol was increased Amlodipine 10 mg by mouth daily added Continue to monitor (3) Hyperkalemia Current Visit: Yes Status: Acute Assessment and plan: Patient had potassium 5.0 at admission Potassium this morning of Patient given 15 g Kayexalate at admission (4) Dementia Current Visit: Yes Status: Chronic Assessment and plan: Patient has history of dementia Currently alert and oriented 2, likely baseline dementia Resume home medications Qualifiers: Dementia type: Alzheimer's disease Alzheimer's disease onset: unspecified onset Dementia behavioral disturbance: without behavioral disturbance Qualified Code(s): G30.9 - Alzheimer's disease, unspecified; F02.80 - Dementia in other diseases classified elsewhere without behavioral disturbance; F02.80 - Dementia in other diseases classified elsewhere without behavioral disturbance; F02.80 - Dementia in other diseases classified elsewhere without behavioral disturbance (5) Leukocytosis Current Visit: Yes Status: Acute Assessment and plan: Leukocytosis of unknown etiology WBC 15.2 presentation has trended down to 13.6 In looking back at the patient's white blood cell counts on record, they have all been high suggesting this is constipation baseline We will continue to monitor with daily CBC Qualifiers: Leukocytosis type: unspecified Qualified Code(s): D72.829 - Elevated white blood cell count, unspecified (6) DVT prophylaxis Current Visit: No Status: Acute Assessment and plan: Lovenox 30 mg subcutaneous daily - Subjective Interval history: Patient warranted 2 this morning, patient is comfortable at this time. She denies having any discomfort or headaches. She denies chest pain, palpitations , or shortness of breath. - Constitutional Vitals: Temp Pulse Resp BP Pulse Ox 97.6 F 52 16 157/77 94 06/07/17 04:42 06/07/17 04:42 06/07/17 04:42 06/07/17 04:42 06/07/17 04:42 General appearance: Present: A&O X 2, pleasant, no acute distress Exam: General: Cooperative, pleasant, no acute distress, alert and oriented 2, answers questions appropriately HEENT: Normocephalic, atraumatic, neck supple, trachea midline, Conjunctiva pink , sclera anicteric Respiratory: No accessory muscle usage, clear to auscultation bilaterally, no wheezes/rhonchi/rales appreciated Cardiovascular: Regular rate and rhythm, S1 and S2 present, no murmurs/rubs/ gallops/clicks appreciated GI/abdominal: Nondistended, nontender, soft, normal bowel sounds, no peritoneal signs Extremities: No calf tenderness, noncyanotic, no pedal edema appreciated, warm, lower extremity pulses palpable and symmetrical Neurological: Alert and oriented 2, no facial droop, no focal deficits Internal Medicine: Result - Labs CBC & Chem 7: 06/07/17 05:32 06/06/17 06:32 Labs: Short CBC 06/06/17 06/07/17 Range/Units 06:32 05:32 WBC 14.6 H 13.6 H (4.3-11.1) K/mcL Hgb 14.1 13.1 (11.5-15.4) g/dL Hct 44.0 40.8 (35.3-44.9) % Plt Count 188 190 (140-400) K/mcL Neutrophils # 8.8 7.9 (1.6-8.9) K/mcL BMP 06/06/17 06:32 Sodium 140 Potassium 4.9 H Chloride 110 H Carbon Dioxide 24 BUN 18 Creatinine 0.99 Glucose 99 Calcium 9.5 - ABG Interpretation ABG results: PT/INR, D-dimer PT 11.1 Seconds (9.4-12.1) 06/05/17 18:54 - Impressions Impressions Echocardiogram 06/06/17 19:51 Impressions: LVEF 65%. Normal LV chamber size and function. Mild concentric left ventricular hypertrophy. Mild left ventricular diastolic dysfunction. Normal right ventricular structure and function. Mild pulmonic regurgitation. No evidence of pulmonary hypertension. Left Ventricular Wall Motion: Rest Echo Findings All wall segments showed normal motion. Findings: Study Quality * Technically adequate exam. ECG Findings * Normal sinus rhythm. Left Ventricle * LVEF 65%. * Normal LV chamber size and function. * Mild concentric left ventricular hypertrophy. * Mild left ventricular diastolic dysfunction. Right Ventricle * Normal right ventricular structure and function. Left Atrium * Mildly dilated left atrium. Right Atrium * Normal right atrial size. Aortic Valve * Trileaflet aortic valve. * Mildly sclerotic aortic valve leaflets. * No aortic regurgitation. * No aortic stenosis. Mitral Valve * Mild mitral annular calcification * Normal mitral valve function. * No mitral regurgitation. * No mitral stenosis. Tricuspid Valve * Normal tricuspid valve structure and function. * Trace tricuspid regurgitation. * No evidence of pulmonary hypertension. Pulmonic Valve * Normal pulmonic valve structure. * Mild pulmonic regurgitation. IVC * Normal IVC dimensions and inspiratory collapse. Aorta * Normally sized aortic root. Pericardium * There is a trivial pericardial effusion present. Pulmonary Artery * Normal visualized portions of the main pulmonary artery. - Stroke Is the patient on any antithrombotics?: No Are there any contradictions to antithrombotics?: No Contraindication Not Initiating IV-Tpa: Not Indicated - Symptoms Rapidly Improving Consult Discharge Plan - Plan Referrals: Alexa Prado CNP [Primary Care Provider] - 06/11/17 11:00 am
[2017-06-07 08:01] LABS: BUN/Creatinine Ratio 20 (6-26); Blood Urea Nitrogen 19 mg/dL (7-20); Calcium 9.4 mg/dL (8.6-10.8); Carbon Dioxide 24 mEq/L (19-29); Chloride 109 mEq/L (98-109); Glucose 105 mg/dL (70-99); Osmolality,Calculated 293 (280-300); Potassium 3.9 mEq/L (3.5-4.5); Sodium 140 mEq/L (136-145); eGFR For African Americans > 60 (> 60); eGFR For Non-African Americans 57 (> 60)
--- NOTE | 2017-06-07 09:01 | Discharge Summary ---
<SilviaRasta - Last Filed: 06/07/17 15:33> Date of Encounter: 06/07/17 Time of Encounter: 05:50 - Discharge Diagnosis (1) TIA (transient ischemic attack) Priority: Primary Status: Acute Qualifiers: Transient cerebral ischemia type: unspecified Qualified Code(s): G45.9 - Transient cerebral ischemic attack, unspecified (2) Hypertensive urgency Priority: Primary Status: Acute (3) Hyperkalemia Priority: Primary Status: Acute (4) Dementia Priority: Primary Status: Chronic Qualifiers: Dementia type: Alzheimer's disease Alzheimer's disease onset: unspecified onset Dementia behavioral disturbance: without behavioral disturbance Qualified Code(s): G30.9 - Alzheimer's disease, unspecified; F02.80 - Dementia in other diseases classified elsewhere without behavioral disturbance; F02.80 - Dementia in other diseases classified elsewhere without behavioral disturbance; F02.80 - Dementia in other diseases classified elsewhere without behavioral disturbance (5) Leukocytosis Priority: Primary Status: Acute Qualifiers: Leukocytosis type: unspecified Qualified Code(s): D72.829 - Elevated white blood cell count, unspecified (6) DVT prophylaxis Priority: Secondary Status: Acute - Discharge Medications Prescriptions: amLODIPine [Norvasc] 10 mg PO DAILY #30 tablet Aspirin Enteric Coated [Aspirin EC] 325 mg PO DAILY #30 tablet. Home Medications: Calcium Carbonate/Vitamin D3 [Calcium 600 + Vit D Tablet] 1 tab PO DAILY [History] Vit A/Vit C/Vit E/Zinc/Copper [Preservision Areds Tablet] 1 tab PO DAILY [History] Lidocaine [Lidoderm] 1 patch TP DAILY 10/31/15 [History] Metoprolol [Lopressor] 25 mg PO BID 10/31/15 [History] Atorvastatin [Lipitor] 40 mg PO HS #30 tablet 11/02/15 [Rx] Donepezil [Aricept] 10 mg PO HS 06/05/17 [History] Aspirin Enteric Coated [Aspirin EC] 325 mg PO DAILY #30 tablet. 06/07/17 [Rx] amLODIPine [Norvasc] 10 mg PO DAILY #30 tablet 06/07/17 [Rx] Allergies/Adverse Reactions: 3 Allergy/AdvReac Type Severity Reaction Status Date / Time Cyproheptadine Allergy Rash Verified 10/31/15 19:21 [From Periactin] Erythromycin Base Allergy Rash Verified 10/31/15 19:21 [From Ilosone] NSAIDS (Non-Steroidal Allergy Rash Verified 10/31/15 19:21 Anti-Inflamma nutri sweet Allergy Rash Uncoded 10/02/15 12:16 Procedures/tests Complete & Pending: Procedures Performed prior 72 hours Category Date Time Status MR head/brain wo con [MR] Stat MRI 06/05/17 19:51 Completed EV echocardiogram Routine Y 06/06/17 19:51 Completed Date of admission: 06/05/17 18:56 Primary care physician: Alexa Prado CNP Consults: 06/05/17 19:50 Consult to Occupational Therapy [CONS] Routine Comment: Evaluate, develop and implement POC Reason for Consult: CVA Consult to Physical Therapy [CONS] Routine Comment: Evaluate, develop and implement POC Reason for Consult: CVA Consult to Speech Therapy [CONS] Routine Comment: Evaluate, develop and implement POC Reason for Consult: CVA Call Completed: No Discharging clinician: Rasta Vega Anticipated date of discharge: 06/07/17 - Patient Status Disposition: Transfer SNF Condition: Fair Functional capacity at discharge: independent ambulation Overall status at discharge: patient is progressing back to baseline - Discharge Instructions Follow Up With: Alexa Prado CNP [Primary Care Provider] - 06/11/17 11:00 am Additional Instructions: Please return to emergency room if return of symptoms, slurred speech, facial droop, difficulty speaking, or development of weakness. Take all medications as prescribed: Full dose aspirin at 325 mg daily until assessed by neurology Amlodipine 10 mg daily until assessed by PCP Follow-up to PCP in 1-2 weeks Follow-up with neurology - Diet and Activity Activity: as per physical therapy Diet: advance to your usual diet Interval History: Patient reports she is doing fine this morning. She reports no return of symptoms and states she is speaking well without slurred speech or word finding. She denies weakness, chest pain, shortness of breath, vision changes. Hospital course: Mrs. Byrnes is a 86 year old female with medical history significant for hypertension and previous TIA who presented to [facility] because of the development of symptoms concerning for a CVA/TIA. Her family reports that she was having difficulty speaking, slurred speech, and some weakness while out earlier in the day. By the time she presented to the ER, she had resolution of her symptoms. Imaging was obtained of her head as well as the vasculature of her head and neck. There was no sign of an acute infarct and no concerning stenosis of her vessels. 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 Patient had no mental status changes, fever, or nuchal rigidity that was concerning for encephalitis. It was observed that she had a very elevated blood pressure at admission and this could have been contributory to her symptoms. She was seen by a neurologist at [facility], who did not feel that obtaining CSV was warranted at this time. An EEG was ordered in order to rule out partial seizure , pending the results of this examination she should be safe for discharge. With no continuation or return of her symptoms, patient is safe/stable for discharge with follow up with her PCP and neurologist. - Time Spent with Patient Total time spent providing and/or coordinating discharge services: - Constitutional Vitals: Temp Pulse Resp BP Pulse Ox 97.6 F 54 18 164/77 95 06/07/17 07:18 06/07/17 07:18 06/07/17 07:18 06/07/17 07:18 06/07/17 07:18 General appearance: Present: A&O X 2, pleasant, no acute distress Exam: General: Cooperative, pleasant, no acute distress, alert and oriented 2, answers questions appropriately HEENT: Normocephalic, atraumatic, neck supple, trachea midline, Conjunctiva pink , sclera anicteric Respiratory: No accessory muscle usage, clear to auscultation bilaterally, no wheezes/rhonchi/rales appreciated Cardiovascular: Regular rate and rhythm, S1 and S2 present, no murmurs/rubs/ gallops/clicks appreciated GI/abdominal: Nondistended, nontender, soft, normal bowel sounds, no peritoneal signs Extremities: No calf tenderness, noncyanotic, no pedal edema appreciated, warm, lower extremity pulses palpable and symmetrical Neurological: Alert and oriented 2, no facial droop, no focal deficits, strength in upper and lower strength is intact bilaterally, cranial nerves II through XII grossly intact without deficits, sensation to light touch grossly intact - Stroke Is the patient on any antithrombotics?: No Are there any contradictions to antithrombotics?: No Contraindication Not Initiating IV-Tpa: Not Indicated - Symptoms Rapidly Improving <Mynor Plaza - Last Filed: 06/07/17 15:40> Date of Encounter: 06/07/17 Procedures/tests Complete & Pending: Procedures Performed prior 72 hours Category Date Time Status MR head/brain wo con [MR] Stat MRI 06/05/17 19:51 Completed EV echocardiogram Routine Y 06/06/17 19:51 Completed Date of admission: 06/05/17 18:56 Primary care physician: Alexa Prado CNP Consults: 06/05/17 19:50 Consult to Occupational Therapy [CONS] Routine Comment: Evaluate, develop and implement POC Reason for Consult: CVA Consult to Physical Therapy [CONS] Routine Comment: Evaluate, develop and implement POC Reason for Consult: CVA Consult to Speech Therapy [CONS] Routine Comment: Evaluate, develop and implement POC Reason for Consult: CVA Call Completed: No 06/07/17 10:20 Consult to Reinforcement Maker [CONS] Routine Reason for SW Consult: PT/OT rec SNF; patient would like [facility] 06/07/17 11:09 Consult to Interpret Exam [CONS] Routine Consulting Provider: Melisa De Anda Consult to Interpret Exam: Interpret EEG Hospital course: Ms. Byrnes is a 86 year old female - Time Spent with Patient Total time spent providing and/or coordinating discharge services: - Constitutional Vitals: Temp Pulse Resp BP Pulse Ox 97.8 F 61 16 182/81 95 06/07/17 11:00 06/07/17 11:00 06/07/17 11:00 06/07/17 11:00 06/07/17 11:00 - Attending Attestation EEG is consistent with mild diffuse cerebral dysfunction that can be seen in patients with encephalopathy, metabolic/toxic, electrolyte derangement, or patients with cognitive impairments. Findings are nonspecific. of to discharge on ASA and statin time spent on this discharge : 40 min I examined this patient and my medical decision-making was reviewed with the Resident Physician. I agree with the documented findings, disposition and treatment plan as described except to the extent set forth below.
--- NOTE | 2017-06-07 09:10 | Physician Discharge Referral ---
ExtendedCare Referral Info Provider in Charge after Transfer: PCP Institutional Level of Care: Skilled - Diagnosis (1) TIA (transient ischemic attack) Priority: Primary Status: Acute (2) Hypertensive urgency Priority: Primary Status: Acute (3) Hyperkalemia Priority: Primary Status: Acute (4) Dementia Priority: Primary Status: Chronic (5) Leukocytosis Priority: Primary Status: Acute (6) DVT prophylaxis Priority: Secondary Status: Acute - Transfer Medications Prescriptions: amLODIPine [Norvasc] 10 mg PO DAILY #30 tablet Aspirin Enteric Coated [Aspirin EC] 325 mg PO DAILY #30 tablet. Home Medications: Calcium Carbonate/Vitamin D3 [Calcium 600 + Vit D Tablet] 1 tab PO DAILY [History] Vit A/Vit C/Vit E/Zinc/Copper [Preservision Areds Tablet] 1 tab PO DAILY [History] Lidocaine [Lidoderm] 1 patch TP DAILY 10/31/15 [History] Metoprolol [Lopressor] 25 mg PO BID 10/31/15 [History] Atorvastatin [Lipitor] 40 mg PO HS #30 tablet 11/02/15 [Rx] Donepezil [Aricept] 10 mg PO HS 06/05/17 [History] Aspirin Enteric Coated [Aspirin EC] 325 mg PO DAILY #30 tablet. 06/07/17 [Rx] amLODIPine [Norvasc] 10 mg PO DAILY #30 tablet 06/07/17 [Rx] Allergies/Adverse Reactions: 3 Allergy/AdvReac Type Severity Reaction Status Date / Time Cyproheptadine Allergy Rash Verified 10/31/15 19:21 [From Periactin] Erythromycin Base Allergy Rash Verified 10/31/15 19:21 [From Ilosone] NSAIDS (Non-Steroidal Allergy Rash Verified 10/31/15 19:21 Anti-Inflamma nutri sweet Allergy Rash Uncoded 10/02/15 12:16 - Respiratory Orders Smoking Cessation: Smoking cessation has been advised. For more information, call the [place] Tobacco Quit Line at 3-602-XPHQ-NOW. - Advance Directives Code Status: Full Code - Mobility Orders Ambulate - Rehabiliation Orders Rehab Potential: Fair Rehab Orders: Evaluation for Physical Therapy, Evaluation for Occupational Therapy, Evaluation for Speech Therapy - Diet Orders Regular CERTIFICATION: I certify that the transfer of the above named patient to an Extended Care Facility is necessary for the continuing treatment of the diagnosis listed. The above information is true and accurate reflection of patient's current condition. Confidential - Redisclosure prohibited without a patient's written consent.
[2017-06-07] MEDS: Multivit/Ca/Min/Fe/FA 1 TAB TABLET PO SCH (11:06)
[2017-06-07] MEDS: Cholecalciferol (D-3) 1,000 UNIT TABLET PO SCH (11:06)
[2017-06-07] MEDS: Aspirin Enteric Coated 81 MG Tablet PO SCH (11:07)
[2017-06-07] MEDS: amLODIPine 5 MG TABLET PO SCH (11:08)
--- NOTE | 2017-06-07 12:05 | EEG/EMG/Oth Biometrics Report ---
EEG Procedure Report Date of procedure: 06/07/17 EEG Procedure: Routine EEG Procedure Note: Report: This EEG was acquired with standard international 10-20 electrode placement system with EKG recording. The background activity during this EEG was replaced by a mixture of theta and alpha activity with best frequency up to 7-8 Hz. The background activity was reactive to eye openings. Sleep stages were not identified. There are no electrographic seizures identified during this tracing. There are no epileptiform discharges and focal slowing noted during this recording. Photic stimulation produced no abnormalities. HV not performed during this study. EKG tracing showed no significant cardiac dysarrhythmia. Impression: This is an abnormal EEG due to presence of mild to moderate diffuse background slowing. Clinical Correlation: This EEG is consistent with mild diffuse cerebral dysfunction that can be seen in patients with encephalopathy, metabolic/toxic, electrolyte derangement, or patients with cognitive impairments. Clinical correlation suggested.
[2017-06-08 05:38] LABS: Basophils % 0.3 %; Eosinophils # 0.2 K/mcL (0.0-0.6); Eosinophils % 1.8 %; Hematocrit 41.2 % (35.3-44.9); Hemoglobin 13.1 g/dL (11.5-15.4); Immature Granulocytes % 0.2 % (0-4); Lymphocytes # 3.3 K/mcL (0.6-4.6); Lymphocytes % 24.7 %; Mean Corpuscular HGB Conc 31.8 g/dL (31.6-35.5); Mean Corpuscular Volume 94.3 fL (83.0-100.0); Mean Platelet Volume 11.5 fL (9.4-12.4); Monocytes # 1.9 K/mcL (0.0-1.3); Monocytes % 14.3 %; Neutrophils # 7.9 K/mcL (1.6-8.9); Platelet Count 183 K/mcL (140-400); Red Blood Count 4.37 M/mcL (3.82-4.97); Red Cell Distribution Width 14.3 % (11.5-14.5); Segmented Neutrophils % 58.7 %
[2017-06-08 05:53] LABS: BUN/Creatinine Ratio 26 (6-26); Blood Urea Nitrogen 24 mg/dL (7-20); Calcium 9.5 mg/dL (8.6-10.8); Carbon Dioxide 28 mEq/L (19-29); Chloride 108 mEq/L (98-109); Glucose 107 mg/dL (70-99); Osmolality,Calculated 295 (280-300); Potassium 4.6 mEq/L (3.5-4.5); Sodium 140 mEq/L (136-145); eGFR For African Americans > 60 (> 60); eGFR For Non-African Americans 58 (> 60)
[2017-06-08] MEDS: amLODIPine 5 MG TABLET PO SCH (08:10)
[2017-06-08] MEDS: *HR* Enoxaparin 30 MG/0.3 ML SYRINGE SQ SCH (08:10)
[2017-06-08] MEDS: Cholecalciferol (D-3) 1,000 UNIT TABLET PO SCH (08:10)
[2017-06-08] MEDS: Aspirin Enteric Coated 81 MG Tablet PO SCH (08:12)
[2017-06-08] MEDS: Multivit/Ca/Min/Fe/FA 1 TAB TABLET PO SCH (08:12)
[2017-06-08] MEDS: Lisinopril 20 MG TABLET PO SCH (08:46)
--- NOTE | 2017-06-08 08:59 | Internal Med Progress Note ---
<Rasta Vega - Last Filed: 06/08/17 08:56> Date of Encounter: 06/08/17 Time of Encounter: 07:40 - Assessment and plan (1) TIA (transient ischemic attack) Current Visit: Yes Status: Acute Assessment and plan: Patient presented with slurred speech, dysarthria, and RLE weakness Found to be hypertensive with blood pressure as high as 222 systolic Symptoms had mostly resolved by the time she was seen by the better Brain MRI showed nonspecific infectious/inflammatory encephalitis versus sequela of prior ischemia. No CVA/TIA identified acutely Patient has been afebrile, without altered consciousness, no nuchal rigidity, no photophobia would be suggestive of encephalitis Head and Neck CTA with no obstruction/aneurysm Echo showed EF 65%, mild concentric left hypertrophy, mild left ventricular diastolic dysfunction PT recommends SNF/ECF Patient underwent speech evaluation that was not concerning Neurology was consulted who felt patient is a for discharge with continuation of Lipitor and increase aspirin to full dose Qualifiers: Transient cerebral ischemia type: unspecified Qualified Code(s): G45.9 - Transient cerebral ischemic attack, unspecified (2) Hypertensive urgency Current Visit: Yes Status: Acute Assessment and plan: Patient presented with blood pressure of 222/94 and continue to have elevated blood pressure She was given her home dose metoprolol as well as started on amlodipine Over the next 24 hours resolution of her hypertension seen Hypertensive urgency versus hypertensive encephalopathy Hydralazine 10mg qh prn Metoprolol was increased Amlodipine 10 mg by mouth daily added Lisinopril 20 mg by mouth daily was added Continue to monitor (3) Hyperkalemia Current Visit: Yes Status: Acute Assessment and plan: Patient had potassium 5.0 at admission Repeat potassium 4.6 Patient given 15 g Kayexalate at admission On recheck potassium in the morning consider additional Kayexalate if needed (4) Dementia Current Visit: Yes Status: Chronic Assessment and plan: Patient has history of dementia Currently alert and oriented 3 Resume home medications Qualifiers: Dementia type: Alzheimer's disease Alzheimer's disease onset: unspecified onset Dementia behavioral disturbance: without behavioral disturbance Qualified Code(s): G30.9 - Alzheimer's disease, unspecified; F02.80 - Dementia in other diseases classified elsewhere without behavioral disturbance; F02.80 - Dementia in other diseases classified elsewhere without behavioral disturbance; F02.80 - Dementia in other diseases classified elsewhere without behavioral disturbance (5) Leukocytosis Current Visit: Yes Status: Acute Assessment and plan: Patient has chronically elevated white blood cell count No sign of infection currently Qualifiers: Leukocytosis type: unspecified Qualified Code(s): D72.829 - Elevated white blood cell count, unspecified (6) DVT prophylaxis Current Visit: No Status: Acute Assessment and plan: Lovenox 30 mg subcutaneous daily - Subjective Interval history: Patient reports doing well this morning with no concerns/complaints. She denies having headache, vision changes, lightheadedness, confusion, fever/chills , chest pain, or shortness of breath. - Constitutional Vitals: Temp Pulse Resp BP Pulse Ox 97.8 F 60 18 192/89 94 06/08/17 07:52 06/08/17 07:52 06/08/17 07:52 06/08/17 07:52 06/08/17 07:52 General appearance: Present: A&O X 2, pleasant, no acute distress Exam: General: Cooperative, pleasant, no acute distress, alert and oriented 3, answers questions appropriately HEENT: Normocephalic, atraumatic, neck supple, trachea midline, Conjunctiva pink , sclera anicteric, EOMI, PERRL, oral mucosa moist, no orophargeal erythema or exudates Respiratory: No accessory muscle usage, clear to auscultation bilaterally, no wheezes/rhonchi/rales appreciated Cardiovascular: Regular rate and rhythm, S1 and S2 present, no murmurs/rubs/ gallops/clicks appreciated GI/abdominal: Nondistended, nontender, soft, normal bowel sounds, no peritoneal signs Extremities: No calf tenderness, noncyanotic, no pedal edema appreciated, warm, lower extremity pulses palpable and symmetrical Neurological: Alert and oriented 3, no facial droop, no focal deficits, cranial nerves II through XII grossly intact without deficits, 5/5 strength in bilateral upper extremities Internal Medicine: Result - Labs CBC & Chem 7: 06/08/17 05:05 06/08/17 05:05 Labs: Short CBC 06/08/17 Range/Units 05:05 WBC 13.4 H (4.3-11.1) K/mcL Hgb 13.1 (11.5-15.4) g/dL Hct 41.2 (35.3-44.9) % Plt Count 183 (140-400) K/mcL Neutrophils # 7.9 (1.6-8.9) K/mcL BMP 06/08/17 05:05 Sodium 140 Potassium 4.6 H Chloride 108 Carbon Dioxide 28 BUN 24 H Creatinine 0.92 Glucose 107 H Calcium 9.5 - ABG Interpretation ABG results: PT/INR, D-dimer PT 11.1 Seconds (9.4-12.1) 06/05/17 18:54 - Stroke Is the patient on any antithrombotics?: No Are there any contradictions to antithrombotics?: No Contraindication Not Initiating IV-Tpa: Not Indicated - Symptoms Rapidly Improving Consult Discharge Plan - Plan Additional Instructions: Please return to emergency room if return of symptoms, slurred speech, facial droop, difficulty speaking, or development of weakness. Take all medications as prescribed: Full dose aspirin at 325 mg daily until assessed by neurology Amlodipine 10 mg daily until assessed by PCP Follow-up to PCP in 1-2 weeks Follow-up with neurology Referrals: Alexa Prado CNP [Primary Care Provider] - 06/11/17 11:00 am Prescriptions: amLODIPine [Norvasc] 10 mg PO DAILY #30 tablet Aspirin Enteric Coated [Aspirin EC] 325 mg PO DAILY #30 tablet. Lisinopril [Zestril] 20 mg PO DAILY #30 tablet <Mynor Plaza H - Last Filed: 06/08/17 13:40> Date of Encounter: 06/08/17 - Constitutional Vitals: Temp Pulse Resp BP Pulse Ox 97.8 F 56 18 139/56 94 06/08/17 07:52 06/08/17 13:18 06/08/17 13:18 06/08/17 13:18 06/08/17 07:52 Internal Medicine: Result - Labs CBC & Chem 7: 06/08/17 05:05 06/08/17 05:05 Labs: Short CBC 06/08/17 Range/Units 05:05 WBC 13.4 H (4.3-11.1) K/mcL Hgb 13.1 (11.5-15.4) g/dL Hct 41.2 (35.3-44.9) % Plt Count 183 (140-400) K/mcL Neutrophils # 7.9 (1.6-8.9) K/mcL BMP 06/08/17 05:05 Sodium 140 Potassium 4.6 H Chloride 108 Carbon Dioxide 28 BUN 24 H Creatinine 0.92 Glucose 107 H Calcium 9.5 - ABG Interpretation ABG results: PT/INR, D-dimer PT 11.1 Seconds (9.4-12.1) 06/05/17 18:54 - Attending Attestation Not able to be discharged the day before due to bed availability, acute discharged today on 20 mg of lisinopril to be added to her list of medications
[2017-06-08] MEDS ORDERED: hydrALAZINE 25 MG TABLET PO ONE (17:09)
[2017-06-09] MEDS: *HR* Enoxaparin 30 MG/0.3 ML SYRINGE SQ SCH (06:41)
[2017-06-09] MEDS: Aspirin Enteric Coated 81 MG Tablet PO SCH (10:26)
[2017-06-09] MEDS: Multivit/Ca/Min/Fe/FA 1 TAB TABLET PO SCH (10:26)
[2017-06-09] MEDS: Lisinopril 20 MG TABLET PO SCH (10:26)
[2017-06-09] MEDS: Cholecalciferol (D-3) 1,000 UNIT TABLET PO SCH (10:26)
[2017-06-09] MEDS: amLODIPine 5 MG TABLET PO SCH (10:26)
--- NOTE | 2017-06-09 10:39 | Internal Med Progress Note ---
Date of Encounter: 06/09/17 Time of Encounter: 10:37 - Assessment and plan (1) TIA (transient ischemic attack) Current Visit: Yes Status: Acute Assessment and plan: Current Visit: Yes Status: Acute Assessment and plan: Patient presented with slurred speech, dysarthria, and RLE weakness Brain MRI showed nonspecific infectious/inflammatory encephalitis versus sequela of prior ischemia. No CVA/TIA identified acutely Patient has been afebrile, without altered consciousness, no nuchal rigidity, no photophobia would be suggestive of encephalitis Head and Neck CTA with no obstruction/aneurysm Echo showed EF 65%, mild concentric left hypertrophy, mild left ventricular diastolic dysfunction PT recommends SNF/ECF Patient underwent speech evaluation that was not concerning Neurology was consulted who felt patient is a for discharge with continuation of Lipitor and increase aspirin to full dose Awaiting placement Qualifiers: Transient cerebral ischemia type: unspecified Qualified Code(s): G45.9 - Transient cerebral ischemic attack, unspecified (2) Hypertensive urgency Current Visit: Yes Status: Acute Assessment and plan: Patient presented with blood pressure of 222/94 and continue to have elevated blood pressure but improving She was given her home dose metoprolol as well as started on amlodipine Over the next 24 hours resolution of her hypertension seen Hypertensive urgency versus hypertensive encephalopathy Hydralazine 10mg qh prn Metoprolol was increased Amlodipine 10 mg by mouth daily added Lisinopril 20 mg by mouth daily was added Continue to monitor (3) Hyperkalemia Current Visit: Yes Status: Acute Assessment and plan: Patient had potassium 5.0 at admission Repeat potassium 4.6 Patient given 15 g Kayexalate at admission On recheck potassium in the morning consider additional Kayexalate if needed (4) Dementia Current Visit: Yes Status: Chronic Assessment and plan: Patient has history of dementia Currently alert and oriented 3 Resume home medications Qualifiers: Dementia type: Alzheimer's disease Alzheimer's disease onset: unspecified onset Dementia behavioral disturbance: without behavioral disturbance Qualified Code(s): G30.9 - Alzheimer's disease, unspecified; F02.80 - Dementia in other diseases classified elsewhere without behavioral disturbance; F02.80 - Dementia in other diseases classified elsewhere without behavioral disturbance; F02.80 - Dementia in other diseases classified elsewhere without behavioral disturbance (5) Leukocytosis Current Visit: Yes Status: Acute Assessment and plan: Patient has chronically elevated white blood cell count No sign of infection currently Qualifiers: Leukocytosis type: unspecified Qualified Code(s): D72.829 - Elevated white blood cell count, unspecified (6) DVT prophylaxis Current Visit: No Status: Acute Assessment and plan: Lovenox 30 mg subcutaneous daily Qualifiers: Transient cerebral ischemia type: unspecified Qualified Code(s): G45.9 - Transient cerebral ischemic attack, unspecified - Subjective Interval history: No chest pain or shortness of breath, no dysarthria, no headaches, no abdominal pain or fevers - Constitutional Vitals: Temp Pulse Resp BP Pulse Ox 98.2 F 58 15 132/58 94 06/09/17 07:32 06/09/17 07:32 06/09/17 07:32 06/09/17 07:32 06/09/17 07:32 General appearance: Present: A&O X 2, pleasant, no acute distress - Head Head exam: Present: atraumatic, normocephalic - Eye Eye exam: Present: PERRL, conjuntiva pink, sclera anicteric Pupils: Present: PERRL - Neck Neck exam general surgery: Present: supple, trachea midline. Absent: lymphadenopathy - Respiratory Respiratory exam: Present: CTAB. Absent: accessory muscle use, rales, rhonchi, wheezes - Cardiovascular Cardiovascular exam: Present: RRR, +S1, +S2. Absent: diastolic murmur, gallop, rubs, systolic murmur - GI/Abdominal GI/Abdominal exam: Present: normal bowel sounds, soft, no peritoneal signs. Absent: distended, tenderness - Extremities Exam Extremities exam: Present: warm, radial pulses palpable and symmetrical. Absent : calf tenderness, cyanotic, pedal edema - Neurological Exam Neurological exam: Present: CN II-XII intact, oriented X3, no focal deficits. Absent: pronater drift, facial droop, speech deficit - Skin Skin exam: Present: dry, intact Internal Medicine: Result - Labs CBC & Chem 7: 06/08/17 05:05 06/08/17 05:05 - ABG Interpretation ABG results: PT/INR, D-dimer PT 11.1 Seconds (9.4-12.1) 06/05/17 18:54 - Stroke Is the patient on any antithrombotics?: No Are there any contradictions to antithrombotics?: No Contraindication Not Initiating IV-Tpa: Not Indicated - Symptoms Rapidly Improving Consult Discharge Plan - Plan Additional Instructions: Please return to emergency room if return of symptoms, slurred speech, facial droop, difficulty speaking, or development of weakness. Take all medications as prescribed: Full dose aspirin at 325 mg daily until assessed by neurology Amlodipine 10 mg daily until assessed by PCP Follow-up to PCP in 1-2 weeks Follow-up with neurology Referrals: Alexa Prado CNP [Primary Care Provider] - 06/11/17 11:00 am Prescriptions: amLODIPine [Norvasc] 10 mg PO DAILY #30 tablet Aspirin Enteric Coated [Aspirin EC] 325 mg PO DAILY #30 tablet. Lisinopril [Zestril] 20 mg PO DAILY #30 tablet
[2017-06-10] MEDS: *HR* Enoxaparin 30 MG/0.3 ML SYRINGE SQ SCH (04:23)
--- NOTE | 2017-06-10 09:57 | Internal Med Progress Note ---
Date of Encounter: 06/10/17 Time of Encounter: 09:55 - Assessment and plan (1) TIA (transient ischemic attack) Current Visit: Yes Status: Acute Assessment and plan: Current Visit: Yes Status: Acute Assessment and plan: Patient presented with slurred speech, dysarthria, and RLE weakness Brain MRI showed nonspecific infectious/inflammatory encephalitis versus sequela of prior ischemia. No CVA/TIA identified acutely Patient has been afebrile, without altered consciousness, no nuchal rigidity, no photophobia would be suggestive of encephalitis Head and Neck CTA with no obstruction/aneurysm Echo showed EF 65%, mild concentric left hypertrophy, mild left ventricular diastolic dysfunction PT recommends SNF/ECF Patient underwent speech evaluation that was not concerning Neurology was consulted, the patient is ready for discharge with continuation of Lipitor and increase of her aspirin to full dose Awaiting placement Qualifiers: Transient cerebral ischemia type: unspecified Qualified Code(s): G45.9 - Transient cerebral ischemic attack, unspecified (2) Hypertensive urgency Current Visit: Yes Status: Acute Assessment and plan: Patient presented with blood pressure of 222/94 and continue to have elevated blood pressure but improving She was given her home dose metoprolol as well as started on amlodipine Over the next 24 hours resolution of her hypertension seen Hypertensive urgency versus hypertensive encephalopathy Hydralazine 10mg qh prn Metoprolol was increased Amlodipine 10 mg by mouth daily added Lisinopril 20 mg by mouth daily was added Continue to monitor (3) Hyperkalemia Current Visit: Yes Status: Acute Assessment and plan: Patient had potassium 5.0 at admission Repeat potassium 4.6 Patient given 15 g Kayexalate at admission On recheck potassium in the morning consider additional Kayexalate if needed (4) Dementia Current Visit: Yes Status: Chronic Assessment and plan: Patient has history of dementia Currently alert and oriented 3 Resume home medications Qualifiers: Dementia type: Alzheimer's disease Alzheimer's disease onset: unspecified onset Dementia behavioral disturbance: without behavioral disturbance Qualified Code(s): G30.9 - Alzheimer's disease, unspecified; F02.80 - Dementia in other diseases classified elsewhere without behavioral disturbance; F02.80 - Dementia in other diseases classified elsewhere without behavioral disturbance; F02.80 - Dementia in other diseases classified elsewhere without behavioral disturbance (5) Leukocytosis Current Visit: Yes Status: Acute Assessment and plan: Patient has chronically elevated white blood cell count No sign of infection currently Qualifiers: Leukocytosis type: unspecified Qualified Code(s): D72.829 - Elevated white blood cell count, unspecified (6) DVT prophylaxis Current Visit: No Status: Acute Assessment and plan: Lovenox 30 mg subcutaneous daily Qualifiers: Transient cerebral ischemia type: unspecified Qualified Code(s): G45.9 - Transient cerebral ischemic attack, unspecified - Subjective Interval history: No new complaints. Blood pressure is better controlled No chest pain or shortness of breath, no dysarthria, no headaches, no abdominal pain or fevers - Constitutional Vitals: Temp Pulse Resp BP Pulse Ox 97.9 F 78 16 120/49 93 06/10/17 05:05 06/10/17 05:05 06/10/17 05:05 06/10/17 05:05 06/10/17 05:05 General appearance: Present: A&O X 2, pleasant, no acute distress - Head Head exam: Present: atraumatic, normocephalic - Eye Eye exam: Present: PERRL, conjuntiva pink, sclera anicteric Pupils: Present: PERRL - Neck Neck exam general surgery: Present: supple, trachea midline. Absent: lymphadenopathy - Respiratory Respiratory exam: Present: CTAB. Absent: accessory muscle use, rales, rhonchi, wheezes - Cardiovascular Cardiovascular exam: Present: RRR, +S1, +S2. Absent: diastolic murmur, gallop, rubs, systolic murmur - GI/Abdominal GI/Abdominal exam: Present: normal bowel sounds, soft, no peritoneal signs. Absent: distended, tenderness - Extremities Exam Extremities exam: Present: warm, radial pulses palpable and symmetrical. Absent : calf tenderness, cyanotic, pedal edema - Neurological Exam Neurological exam: Present: CN II-XII intact, oriented X3, no focal deficits. Absent: pronater drift, facial droop, speech deficit - Skin Skin exam: Present: dry, intact Internal Medicine: Result - Labs CBC & Chem 7: 06/08/17 05:05 06/08/17 05:05 - ABG Interpretation ABG results: PT/INR, D-dimer PT 11.1 Seconds (9.4-12.1) 06/05/17 18:54 - Stroke Is the patient on any antithrombotics?: Yes Are there any contradictions to antithrombotics?: No Contraindication Not Initiating IV-Tpa: Not Indicated - Symptoms Rapidly Improving Consult Discharge Plan - Plan Additional Instructions: Please return to emergency room if return of symptoms, slurred speech, facial droop, difficulty speaking, or development of weakness. Take all medications as prescribed: Full dose aspirin at 325 mg daily until assessed by neurology Amlodipine 10 mg daily until assessed by PCP Follow-up to PCP in 1-2 weeks Follow-up with neurology Referrals: Alexa Prado CNP [Primary Care Provider] - 06/11/17 11:00 am Prescriptions: amLODIPine [Norvasc] 10 mg PO DAILY #30 tablet Aspirin Enteric Coated [Aspirin EC] 325 mg PO DAILY #30 tablet. Lisinopril [Zestril] 20 mg PO DAILY #30 tablet
[2017-06-10] MEDS: amLODIPine 5 MG TABLET PO SCH (10:06)
[2017-06-10] MEDS: Multivit/Ca/Min/Fe/FA 1 TAB TABLET PO SCH (10:06)
[2017-06-10] MEDS: Lisinopril 20 MG TABLET PO SCH (10:06)
[2017-06-10] MEDS: Aspirin Enteric Coated 81 MG Tablet PO SCH (10:06)
[2017-06-10] MEDS: Cholecalciferol (D-3) 1,000 UNIT TABLET PO SCH (10:06)
[2017-06-11] MEDS: *HR* Enoxaparin 30 MG/0.3 ML SYRINGE SQ SCH (06:17)
[2017-06-11] MEDS: Lisinopril 20 MG TABLET PO SCH (09:20)
[2017-06-11] MEDS: Multivit/Ca/Min/Fe/FA 1 TAB TABLET PO SCH (09:20)
[2017-06-11] MEDS: Aspirin Enteric Coated 81 MG Tablet PO SCH (09:21)
[2017-06-11] MEDS: amLODIPine 5 MG TABLET PO SCH (09:21)
[2017-06-11] MEDS: Cholecalciferol (D-3) 1,000 UNIT TABLET PO SCH (09:21)
--- NOTE | 2017-06-11 10:22 | Internal Med Progress Note ---
Date of Encounter: 06/11/17 Time of Encounter: 10:21 - Assessment and plan (1) TIA (transient ischemic attack) Current Visit: Yes Status: Acute Assessment and plan: Current Visit: Yes Status: Acute Assessment and plan: Patient presented with slurred speech, dysarthria, and RLE weakness Brain MRI showed nonspecific infectious/inflammatory encephalitis versus sequela of prior ischemia. No CVA/TIA identified acutely Patient has been afebrile, without altered consciousness, no nuchal rigidity, no photophobia would be suggestive of encephalitis Head and Neck CTA with no obstruction/aneurysm Echo showed EF 65%, mild concentric left hypertrophy, mild left ventricular diastolic dysfunction PT recommends SNF/ECF Patient underwent speech evaluation that was not concerning Neurology was consulted, the patient is ready for discharge with continuation of Lipitor and increase of her aspirin to full dose Awaiting placement Qualifiers: Transient cerebral ischemia type: unspecified Qualified Code(s): G45.9 - Transient cerebral ischemic attack, unspecified (2) Hypertensive urgency Current Visit: Yes Status: Acute Assessment and plan: Patient presented with blood pressure of 222/94 and continue to have elevated blood pressure but improving She was given her home dose metoprolol as well as started on amlodipine Over the next 24 hours resolution of her hypertension seen Hypertensive urgency versus hypertensive encephalopathy Hydralazine 10mg qh prn Metoprolol was increased Amlodipine 10 mg by mouth daily added Lisinopril 20 mg by mouth daily was added Continue to monitor (3) Hyperkalemia Current Visit: Yes Status: Acute Assessment and plan: Patient had potassium 5.0 at admission Repeat potassium 4.6 Patient given 15 g Kayexalate at admission On recheck potassium in the morning consider additional Kayexalate if needed (4) Dementia Current Visit: Yes Status: Chronic Assessment and plan: Patient has history of dementia Currently alert and oriented 3 Resume home medications Qualifiers: Dementia type: Alzheimer's disease Alzheimer's disease onset: unspecified onset Dementia behavioral disturbance: without behavioral disturbance Qualified Code(s): G30.9 - Alzheimer's disease, unspecified; F02.80 - Dementia in other diseases classified elsewhere without behavioral disturbance; F02.80 - Dementia in other diseases classified elsewhere without behavioral disturbance; F02.80 - Dementia in other diseases classified elsewhere without behavioral disturbance (5) Leukocytosis Current Visit: Yes Status: Acute Assessment and plan: Patient has chronically elevated white blood cell count No sign of infection currently Qualifiers: Leukocytosis type: unspecified Qualified Code(s): D72.829 - Elevated white blood cell count, unspecified Qualifiers: Transient cerebral ischemia type: unspecified Qualified Code(s): G45.9 - Transient cerebral ischemic attack, unspecified - Subjective Interval history: Sleepy. No complaints. Blood pressure better controlled No chest pain or shortness of breath, no dysarthria, no headaches, no abdominal pain or fevers - Constitutional Vitals: Temp Pulse Resp BP Pulse Ox 97.7 F 59 12 144/63 93 06/11/17 06:56 06/11/17 06:56 06/11/17 06:56 06/11/17 06:56 06/11/17 06:56 General appearance: Present: A&O X 2, pleasant, no acute distress - Head Head exam: Present: atraumatic, normocephalic - Eye Eye exam: Present: PERRL, conjuntiva pink, sclera anicteric Pupils: Present: PERRL - Neck Neck exam general surgery: Present: supple, trachea midline. Absent: lymphadenopathy - Respiratory Respiratory exam: Present: CTAB. Absent: accessory muscle use, rales, rhonchi, wheezes - Cardiovascular Cardiovascular exam: Present: RRR, +S1, +S2. Absent: diastolic murmur, gallop, rubs, systolic murmur - GI/Abdominal GI/Abdominal exam: Present: normal bowel sounds, soft, no peritoneal signs. Absent: distended, tenderness - Extremities Exam Extremities exam: Present: warm, radial pulses palpable and symmetrical. Absent : calf tenderness, cyanotic, pedal edema - Neurological Exam Neurological exam: Present: CN II-XII intact, no focal deficits. Absent: oriented X3, pronater drift, facial droop, speech deficit - Skin Skin exam: Present: dry, intact Internal Medicine: Result - Labs CBC & Chem 7: 06/08/17 05:05 06/08/17 05:05 - ABG Interpretation ABG results: PT/INR, D-dimer PT 11.1 Seconds (9.4-12.1) 06/05/17 18:54 - Stroke Is the patient on any antithrombotics?: Yes Are there any contradictions to antithrombotics?: No Contraindication Not Initiating IV-Tpa: Not Indicated - Symptoms Rapidly Improving Consult Discharge Plan - Plan Additional Instructions: Please return to emergency room if return of symptoms, slurred speech, facial droop, difficulty speaking, or development of weakness. Take all medications as prescribed: Full dose aspirin at 325 mg daily until assessed by neurology Amlodipine 10 mg daily until assessed by PCP Follow-up to PCP in 1-2 weeks Follow-up with neurology Referrals: Alexa Prado CNP [Primary Care Provider] - 06/11/17 11:00 am Prescriptions: amLODIPine [Norvasc] 10 mg PO DAILY #30 tablet Aspirin Enteric Coated [Aspirin EC] 325 mg PO DAILY #30 tablet. Lisinopril [Zestril] 20 mg PO DAILY #30 tablet
[2017-06-12] MEDS: *HR* Enoxaparin 30 MG/0.3 ML SYRINGE SQ SCH (05:47)
[2017-06-12] MEDS: amLODIPine 5 MG TABLET PO SCH (08:08)
[2017-06-12] MEDS: Aspirin Enteric Coated 81 MG Tablet PO SCH (08:08)
[2017-06-12] MEDS: Lisinopril 20 MG TABLET PO SCH (08:08)
[2017-06-12] MEDS: Cholecalciferol (D-3) 1,000 UNIT TABLET PO SCH (08:08)
[2017-06-12] MEDS: Multivit/Ca/Min/Fe/FA 1 TAB TABLET PO SCH (08:08)
[2017-06-12 11:33] VITALS: BP 124/59
--- NOTE | 2017-06-12 16:30 | Discharge Summary ---
Date of Encounter: 06/12/17 Time of Encounter: 11:00 - Discharge Medications Prescriptions: amLODIPine [Norvasc] 10 mg PO DAILY #30 tablet Aspirin Enteric Coated [Aspirin EC] 325 mg PO DAILY #30 tablet. Lisinopril [Zestril] 20 mg PO DAILY #30 tablet Home Medications: Calcium Carbonate/Vitamin D3 [Calcium 600 + Vit D Tablet] 1 tab PO DAILY [History] Vit A/Vit C/Vit E/Zinc/Copper [Preservision Areds Tablet] 1 tab PO DAILY [History] Lidocaine [Lidoderm] 1 patch TP DAILY 10/31/15 [History] Metoprolol [Lopressor] 25 mg PO BID 10/31/15 [History] Atorvastatin [Lipitor] 40 mg PO HS #30 tablet 11/02/15 [Rx] Donepezil [Aricept] 10 mg PO HS 06/05/17 [History] Aspirin Enteric Coated [Aspirin EC] 325 mg PO DAILY #30 tablet. 06/07/17 [Rx] amLODIPine [Norvasc] 10 mg PO DAILY #30 tablet 06/07/17 [Rx] Lisinopril [Zestril] 20 mg PO DAILY #30 tablet 06/08/17 [Rx] Allergies/Adverse Reactions: 3 Allergy/AdvReac Type Severity Reaction Status Date / Time Cyproheptadine Allergy Rash Verified 10/31/15 19:21 [From Periactin] Erythromycin Base Allergy Rash Verified 10/31/15 19:21 [From Ilosone] NSAIDS (Non-Steroidal Allergy Rash Verified 10/31/15 19:21 Anti-Inflamma nutri sweet Allergy Rash Uncoded 10/02/15 12:16 Date of admission: 06/05/17 18:56 Primary care physician: Alexa Prado CNP Consults: 06/05/17 19:50 Consult to Occupational Therapy [CONS] Routine Comment: Evaluate, develop and implement POC Reason for Consult: CVA Consult to Physical Therapy [CONS] Routine Comment: Evaluate, develop and implement POC Reason for Consult: CVA Consult to Speech Therapy [CONS] Routine Comment: Evaluate, develop and implement POC Reason for Consult: CVA Call Completed: No 06/07/17 10:20 Consult to Video Operator [CONS] Routine Reason for SW Consult: PT/OT rec SNF; patient would like [facility] 06/07/17 11:09 Consult to Interpret Exam [CONS] Routine Consulting Provider: Melisa De Anda Consult to Interpret Exam: Interpret EEG - Patient Status Disposition: Transfer SNF Condition: Fair - Discharge Instructions Instructions: Lisinopril (By mouth), Aspirin (By mouth), Amlodipine (By mouth) Follow Up With: Alexa Prado CNP [Primary Care Provider] - 06/11/17 11:00 am Additional Instructions: Please return to emergency room if return of symptoms, slurred speech, facial droop, difficulty speaking, or development of weakness. Take all medications as prescribed: Full dose aspirin at 325 mg daily until assessed by neurology Amlodipine 10 mg daily until assessed by PCP Follow-up to PCP in 1-2 weeks Follow-up with neurology Hospital course: Patient is an 86-year-old female with past medical history significant for hypertension and TIA who presented to the ER on 06/05/17 with altered mental status. Patient was said to be in her usual state of health until about 1500 the afternoon of admission at the ophthalmologists where she developed slurred speech, difficulty finding words and RLE weakness. Per her he had to assist her in getting into the car. In the ER, her neurologic symptoms have mostly resolved at time of dilation. She has a history of similar symptoms about a year and a half ago, and is on ASA and Lipitor at home Physical exam in ER at time of arrival revealed NIHSS of 3 for facial droop, speech deficit and extremity weakness. [facility] neurology consulted, no indication for TPA Patient was admitted to the medical floor for further workup. Brain MRI showed nonspecific infectious/inflammatory encephalitis versus sequela of prior ischemia. No CVA/TIA identified acutely Head and Neck CTA with no obstruction/aneurysm Echo showed EF 65%, mild concentric left hypertrophy, mild left ventricular diastolic dysfunction Neurology was consulted with recommendations for Lipitor and increase to a full dose of aspirin. Physical therapy was also consulted with recommendations for placement at [facility]. Patient is medically stable to be discharged for [facility] facility for strength/conditioning and rehabilitation. - Time Spent with Patient Total time spent providing and/or coordinating discharge services: Less than 30 minutes - Constitutional Vitals: Temp Pulse Resp BP Pulse Ox 97.6 F 89 14 124/59 92 06/12/17 11:31 06/12/17 11:31 06/12/17 11:31 06/12/17 11:31 06/12/17 11:31 General appearance: Present: A&O X 2, pleasant, no acute distress - Stroke Is the patient on any antithrombotics?: Yes Contraindication Not Initiating IV-Tpa: Not Indicated - Symptoms Rapidly Improving
== END 2017-06-12 14:00 ==
LOC: EMEROO 17:03 → 2NENU 17:03 → SUATTDRO 18:56 → 2NENU 21:19
PROVIDERS: ADMIT Internal Medicine; ATTEND Hospitalist

== ENCOUNTER 2017-10-07 15:07 | Observation (INO) ==
--- NOTE | 2017-10-07 15:50 | Emergency Department Note ---
Disposition Clinical Impression: Knee pain Qualifiers: Chronicity: acute Laterality: right Qualified Code(s): M25.561 - Pain in right knee Failure to thrive Qualifiers: Failure to thrive age range: in adult Qualified Code(s): R62.7 - Adult failure to thrive Disposition: Admitted As Inpatient Condition: Fair Extremity Problem HPI - General Chief complaint: ED Extremity Problem,Nontraumatic Stated complaint: Right knee pain Time Seen by Provider: 10/07/17 15:34 Source: patient Mode of arrival: ambulatory Limitations: no limitations Nursing Notes Reviewed: Yes Vital Signs Reviewed: Yes - History of Present Illness HPI Narrative: 87-year-old female present for evaluation of right knee pain. It is to be atraumatic. Patient's family states that she was complaining any pain throughout the night. Family states that they have been having today assist her more at home. Patient states the pain is worse with ambulation and weightbearing. Has a history of mini strokes and that has always been her weak leg. Patient denies any fevers. No redness. Patient denies any hip pain. No ankle pain. Patient's family are concerned because they feel they can no longer care for her. Denies any falls but states that he did she did fall a couple weeks ago. Family stated they would like to have the patient place. Patient states that she can no longer care for herself at home. Patient's who is also similar range states that he can no longer care for her as well. Pain Scale: 10 - Related Data Home Medications Medication Instructions Recorded Confirmed Calcium Carbonate/Vitamin D3 1 tab PO DAILY 10/02/15 10/07/17 [Calcium 600 + Vit D Tablet] Vit A/Vit C/Vit E/Zinc/Copper 1 tab PO DAILY 10/02/15 10/07/17 [Preservision Areds Tablet] Metoprolol [Lopressor] 25 mg PO BID 10/31/15 10/07/17 Donepezil [Aricept] 10 mg PO HS 06/05/17 10/07/17 Docusate [Colace] 100 mg PO DAILY PRN 10/07/17 10/07/17 Ergocalciferol (VITAMIN D2) 400 unit PO BID 10/07/17 10/07/17 [Vitamin D] Previous Rx's Medication Instructions Recorded Atorvastatin [Lipitor] 40 mg PO HS #30 tablet 11/02/15 Aspirin Enteric Coated [Aspirin EC] 325 mg PO DAILY #30 tablet. 06/07/17 amLODIPine [Norvasc] 10 mg PO DAILY #30 tablet 06/07/17 Allergies Allergy/AdvReac Type Severity Reaction Status Date / Time Cyproheptadine Allergy Rash Verified 10/07/17 16:35 [From Periactin] Erythromycin Base Allergy Rash Verified 10/07/17 16:35 [From Ilosone] NSAIDS (Non-Steroidal Allergy Rash Verified 10/07/17 16:35 Anti-Inflamma nutri sweet Allergy Rash Uncoded 10/07/17 16:35 All systems ED: reviewed and negative except as stated. Constitutional: Denies: fever Cardiovascular: Denies: chest pain Respiratory: Denies: cough, dyspnea Gastrointestinal: Denies: abdominal pain, nausea, vomiting Past Medical History - Past Medical History Source: patient Medical history: Reports: hypertension, osteoporosis, TIA, other Surgical history: Reports: cataract Psychiatric history: Reports: no psych history - Social History Smoking Status: Never smoker Smokeless Tobacco Status: No Alcohol use: Reports: none Drug use: Reports: none Physical Exam - General Limitations: no limitations General appearance: alert, in no apparent distress - Head Head exam: atraumatic, normocephalic - Eye Eye exam: Present: normal appearance - ENT ENT exam: normal exam, mucous membranes moist - Neck Neck exam: Present: normal inspection - Chest Chest inspection: Present: normal inspection, symmetric chest wall rise - Respiratory Respiratory exam: Present: normal lung sounds bilaterally. Absent: respiratory distress - Cardiovascular Cardiovascular exam: Present: regular rate, normal rhythm. Absent: systolic murmur - Abdominal Exam Abdominal exam: Present: soft, Non-Tender - Expanded Lower Extremity Exam Hip/Pelvis exam: Present: normal inspection. Absent: tenderness Upper leg exam: Present: normal inspection Knee exam: Present: normal inspection, laxity with varus, knee extension intact. Absent: tenderness, swelling, abrasion, ecchymosis, anterior drawer sign, posterior draw sign, pain with varus Neurovascular/Tendon exam: Present: normal capillary refill - Back Exam Back exam: Present: normal inspection. Absent: tenderness - Neurological Exam Neurological exam: Present: alert, oriented X3, CN II-XII intact - Skin Skin exam: Present: warm, dry, intact, normal color Course Course Narrative: Patient seen and examined. Patient appears to be in no acute distress. Patient 's family stressed numerous concerns that they would like the patient placed. The patient does have history of mini strokes and that is perhaps her weak leg. Patient could benefit from PT/OT evaluation and discharge planning. Vital Signs Temperature 98.4 F 10/07/17 15:25 Pulse Rate 66 10/07/17 15:25 Respiratory Rate 18 10/07/17 15:25 Blood Pressure 142/81 10/07/17 15:25 O2 Sat by Pulse Oximetry 94 10/07/17 15:25 Temperature 98.4 F 10/07/17 15:25 Pulse Rate 66 10/07/17 15:25 Respiratory Rate 16 10/07/17 17:17 Blood Pressure 205/95 10/07/17 17:17 O2 Sat by Pulse Oximetry 94 10/07/17 15:25 Oxygen Delivery Oxygen Delivery Room Air Extremity Problem, Nontraumati - MDM Narrative Medical decision making narrative: Patient presents with the family for concerns of atraumatic right knee pain. Family is concerned patient can no longer care for self at home. Patient has had a history of remote strokes with residual right leg weakness. Patient denies any sniffing weakness of the right leg but states he has had some right knee pain. Family states that she can no longer care for self. Patient's typically emulate with assistance however the family is requesting the patient to be admitted with likely rehabilitation planning. Concerns that the patient is not safe at home given her age, co-morbidities and inability to care for self. Patient had basic screening evaluation with labs, urinalysis chest x- ray. Patient's labs reveal chronic leukocytosis. Patient's knee x-ray reviewed. Patient has no clinical signs or symptoms of a septic arthritis. Likely osteoarthritis. - Lab Data Lab results reviewed: Yes I reviewed the patient's lab results. Result diagrams: 10/07/17 16:17 10/07/17 16:17 Lab Results 10/07/17 10/07/17 Range/Units 16:17 16:17 WBC 15.6 H (4.3-11.1) K/mcL RBC 4.99 H (3.82-4.97) M/mcL Hgb 14.8 (11.5-15.4) g/dL Hct 46.7 H (35.3-44.9) % MCV 93.6 (83.0-100.0) fL MCH 29.7 (28.0-33.3) pg MCHC 31.7 (31.6-35.5) g/dL RDW 14.5 (11.5-14.5) % Plt Count 197 (140-400) K/mcL MPV 11.0 (9.4-12.4) fL Immature Gran % 0.4 (0-4) % Seg Neutrophils % 62.2 % Lymphocytes % 22.6 % Monocytes % 13.7 % Eosinophils % 0.8 % Basophils % 0.3 % Neutrophils # 9.7 H (1.6-8.9) K/mcL Lymphocytes # 3.5 (0.6-4.6) K/mcL Monocytes # 2.1 H (0.0-1.3) K/mcL Eosinophils # 0.1 (0.0-0.6) K/mcL Basophils # 0.1 (0.0-0.2) K/mcL Sodium 138 (136-145) mEq/L Potassium 3.9 (3.5-5.1) mEq/L Chloride 104 (98-107) mEq/L Carbon Dioxide 27 (23-29) mEq/L BUN 33 H (8-23) mg/dL Creatinine 1.15 (0.60-1.20) mg/dL Est GFR ( Amer) 54 L (> 60) Est GFR (Non-Af Amer) 45 L (> 60) BUN/Creatinine Ratio 29 H (6-26) Glucose 110 H (70-105) mg/dL Calculated Osmolality 294 (280-300) Calcium 10.4 H (8.6-10.3) mg/dL Total Bilirubin 0.7 (0.3-1.0) mg/dL AST 14 (13-39) Units/L ALT 16 (7-52) Units/L Alkaline Phosphatase 89 (34-104) Units/L Serum Total Protein 6.6 (6.4-8.9) g/dL Albumin 4.1 (3.5-5.7) g/dL Globulin 2.5 (2.4-3.5) g/dL Albumin/Globulin Ratio 1.6 (1.1-2.2) - Radiology Data Radiology results reviewed: Yes I reviewed the patient's radiology results. Chest X-Ray 10/07/17 16:52 IMPRESSION: Mild cardiomegaly and COPD. No acute cardiopulmonary process D/ / Bogdan Pruitt MD / Bogdan Pruitt MD Interpreting Provider: Bogdan Pruitt MD Knee X-Ray 10/07/17 15:45 IMPRESSION: Unremarkable radiographs right knee. Follow-up imaging recommended if pain persists or worsens following conservative management. D/ / Rene Dockery / Rene Dockery Interpreting Provider: Rene Dockery Chest X-Ray 10/07/17 16:52 IMPRESSION: Mild cardiomegaly and COPD. No acute cardiopulmonary process. D/ / 10/07/2017 17:14:02 Bogdan Pruitt MD / jane Interpreting Provider: Bogdan Pruitt MD S.Maame - aStya Situation: Demographics Background: Presenting Complaint Assessment: Vital Signs, Course and respsone to treatment, Patient/Family Expectation Recommendation: Barrier(s) to disposition, Recommendation based on pending studies, treatments, or consults S.BMadison Report Given to: Dr. Maximiliano Hernadez Repor Time: 16:11 Attestation Statement - Attestation Attestation: Patient was seen with resident physician. I reviewed the history, physical, assessment and plan, and agree with the findings. I also personally evaluated this patient and had [id number] time with this patient. 87-year-old female presents to the emergency department with right knee pain and inability to ambulate. Patient has a history of mini strokes and has weakness in that leg in the last couple of days she developed pain and inability to bear weight. Family is concerned because she can no longer ambulate or take care of herself. She lives with her elderly . They are hoping that we can arrange for hospitalization and admission and potentially transfer back to rehabilitation center to get her feeling a little bit better and the knee working more functionally. She denies falling or any other traumatic injury. She says the pain just started today. Remainder of review systems was unremarkable except as noted in the history of present illness. Physical exam vital signs are stable. ENT is unremarkable no signs of traumatic injury. Neck and back were nontender. Heart regular rhythm and rate. Lungs clear. Abdomen soft and nontender. Extremities do not show any abnormalities. Her right knee is nontender to palpation, there is no swelling. She does have pain with passive range of motion which seems minimal. She does not have pain with direct compression on the heel. Distal pulses are intact. Neurologically patient is alert and oriented. Skin no rashes or signs of traumatic injury. Psych normal. ED course we will get x-rays of the knee to rule out occult fracture or other abnormalities. We will also get some basic labs. We discussed the case with the hospitalist, who agreed to accept the patient for admission for PT OT and placement if necessary. Patient was hemodynamically stable otherwise. Agree with the resident physician assessment and plan.
[2017-10-07 16:33] LABS: Basophils # 0.1 K/mcL (0.0-0.2); Basophils % 0.3 %; Eosinophils # 0.1 K/mcL (0.0-0.6); Eosinophils % 0.8 %; Hematocrit 46.7 % (35.3-44.9); Hemoglobin 14.8 g/dL (11.5-15.4); Immature Granulocytes % 0.4 % (0-4); Lymphocytes # 3.5 K/mcL (0.6-4.6); Lymphocytes % 22.6 %; Mean Corpuscular HGB Conc 31.7 g/dL (31.6-35.5); Mean Corpuscular Hemoglobin 29.7 pg (28.0-33.3); Mean Corpuscular Volume 93.6 fL (83.0-100.0); Monocytes # 2.1 K/mcL (0.0-1.3); Monocytes % 13.7 %; Neutrophils # 9.7 K/mcL (1.6-8.9); Platelet Count 197 K/mcL (140-400); Red Blood Count 4.99 M/mcL (3.82-4.97); Red Cell Distribution Width 14.5 % (11.5-14.5); Segmented Neutrophils % 62.2 %
[2017-10-07] MEDS ORDERED: 0.9 % Sodium Chloride 500 ML IVC ONE (16:33)
[2017-10-07 16:51] LABS: Albumin 4.1 g/dL (3.5-5.7); Albumin/Globulin Ratio 1.6 (1.1-2.2); Bilirubin,Total 0.7 mg/dL (0.3-1.0); Calcium 10.4 mg/dL (8.6-10.3); Globulin 2.5 g/dL (2.4-3.5); Potassium 3.9 mEq/L (3.5-5.1); Total Protein 6.6 g/dL (6.4-8.9)
--- NOTE | 2017-10-07 18:22 | Internal Med History&Physical ---
Date of Encounter: 10/07/17 Time of Encounter: 18:21 Assessment and Plan (1) Knee pain Current visit: Yes Status: Acute Patient unable to ambulate and at this point she is not able to get around, has limited resources at home. Will do Tylenol for pain control with topical lidocaine patch PT/OT evaluation If Tylenol not effective then will escalate therapy Qualifiers: Chronicity: acute Laterality: right Qualified Code(s): M25.561 - Pain in right knee (2) Chronic kidney disease, stage 3 (moderate) Current visit: Yes Status: Acute stable (3) Leukocytosis Current visit: No Status: Acute No obvious sources of infection based on patient's complaints. A urine sample from ED was obtained and sent for urinalysis. Will follow up with results. Recheck in AM. Qualifiers: Leukocytosis type: unspecified Qualified Code(s): D72.829 - Elevated white blood cell count, unspecified (4) Hypertension Current visit: Yes Status: Acute Resume home medications Qualifiers: Hypertension type: essential hypertension Qualified Code(s): I10 - Essential (primary) hypertension (5) DVT prophylaxis Current visit: No Status: Acute Heparin Internal Medicine - H&P: HPI History of present illness: Ms. Byrnes is a 87 year old female with history of hypertension, prior TIA, osteoporosis presented for right knee pain. This occurred throughout the night. SHe has been unable to do any weightbearing activity. She has weakness of her legs at baseline but today was unable to place weight on right knee. She was stuck on toilet seat and had to help her. Patient denies any other complaints. She denies upper extremity weakness, fatigue, n/v, malaise, fevers/chills, numbness/tingling. Patient was in no acute distress on arrival. Family is at this point unable to care for patient since she is unable to ambulate and she requires much assistance. Past Med Surg Social Fam HX - Past Medical History Medical history: hypertension, osteoporosis, TIA, other Psychiatric history: no psych history - Past Surgical History Surgical History: cataract - Social History Smoking Status: Never smoker Smokeless Tobacco Status: No Alcohol use: none Drug use: none - Family History Mother Adopted: No Living Status: Hx Family Cancer: Yes (colon) Father Living Status: Hx Family Cardiac Disorders: Yes Internal Medicine - H&P: Meds Calcium Carbonate/Vitamin D3 [Calcium 600 + Vit D Tablet] 1 tab PO DAILY [History] Vit A/Vit C/Vit E/Zinc/Copper [Preservision Areds Tablet] 1 tab PO DAILY [History] Metoprolol [Lopressor] 25 mg PO BID 10/31/15 [History] Atorvastatin [Lipitor] 40 mg PO HS #30 tablet 11/02/15 [Rx] Donepezil [Aricept] 10 mg PO HS 06/05/17 [History] Aspirin Enteric Coated [Aspirin EC] 325 mg PO DAILY #30 tablet. 06/07/17 [Rx] amLODIPine [Norvasc] 10 mg PO DAILY #30 tablet 06/07/17 [Rx] Docusate [Colace] 100 mg PO DAILY PRN 10/07/17 [History] Ergocalciferol (VITAMIN D2) [Vitamin D] 400 unit PO BID 10/07/17 [History] 3 Allergy/AdvReac Type Severity Reaction Status Date / Time Cyproheptadine Allergy Rash Verified 10/07/17 16:35 [From Periactin] Erythromycin Base Allergy Rash Verified 10/07/17 16:35 [From Ilosone] NSAIDS (Non-Steroidal Allergy Rash Verified 10/07/17 16:35 Anti-Inflamma nutri sweet Allergy Rash Uncoded 10/07/17 16:35 All Systems PM: A 10-system review of systems was performed and is negative for pertinent findings except as documented above in the HPI. - Constitutional Constitutional: no chills, no fever(s), no night sweats - EENT Eyes: no change in vision, no discharge, no pain, no photophobia Ears: no ear discharge, no ear pain, no tinnitus Nose, mouth and throat: no dysphagia, no nasal discharge, no neck pain, no sore throat - Cardiovascular Cardiovascular ROS IM: no chest pain, no diaphoresis, no dyspnea, no lightheadedness, no palpitations, no syncope - Respiratory Respiratory: no cough, no dyspnea, no wheezing, no excessive phlegm production - Gastrointestinal Gastrointestinal: no abdominal pain, no diarrhea, no hematemesis, no hematochezia, no melena, no nausea, no vomiting - Genitourinary Genitourinary: no change in urinary stream, no dysuria, no flank pain, no hematuria - Musculoskeletal Musculoskeletal ROS IM: no numbness, no tingling Additional comments: + right Knee pain - Integumentary Integumentary IM: no rash, no unusual bruising - Neurological Neurological ROS: no confusion, no convulsions, no focal weakness, no numbness, no tingling, no tremor(s) - Hematologic/Lymphatic Hematologic/Lymphatic: no easy bruising - Constitutional Vitals: Temp Pulse Resp BP Pulse Ox 98.4 F 66 16 205/95 94 10/07/17 15:25 10/07/17 15:25 10/07/17 17:17 10/07/17 17:17 10/07/17 15:25 General appearance: Present: A&O X 3, answers questions appropriately - Head Head exam: Present: atraumatic, normocephalic - Eye Eye exam: Present: PERRL, conjuntiva pink, sclera anicteric Pupils: Present: PERRL - Neck Neck exam general surgery: Present: supple, trachea midline. Absent: lymphadenopathy - Respiratory Respiratory exam: Present: CTAB. Absent: accessory muscle use, rales, rhonchi, wheezes - Cardiovascular Cardiovascular exam: Present: RRR, +S1, +S2. Absent: diastolic murmur, gallop, rubs, systolic murmur - GI/Abdominal GI/Abdominal exam: Present: normal bowel sounds, soft, no peritoneal signs. Absent: distended, tenderness - Extremities Exam Extremities exam: Present: warm, radial pulses palpable and symmetrical. Absent : calf tenderness, cyanotic, pedal edema - Neurological Exam Neurological exam: Present: CN II-XII intact, oriented X3, no focal deficits. Absent: pronater drift, facial droop, speech deficit - Skin Skin exam: Present: dry, intact Internal Med - H&P Results - Labs CBC & Chem 7: 10/07/17 16:17 10/07/17 16:17 - Stroke Is the patient on any antithrombotics?: No Are there any contradictions to antithrombotics?: No
[2017-10-07] MEDS ORDERED: Naloxone 0.4 MG/ML INJ IVP PRN (18:29)
[2017-10-08] MEDS: *HR* Heparin 5,000 UNIT/ML VIAL SQ SCH ×2 (05:13→18:13)
[2017-10-08 05:58] LABS: Basophils % 0.3 %; Eosinophils # 0.2 K/mcL (0.0-0.6); Eosinophils % 1.2 %; Hematocrit 42.8 % (35.3-44.9); Hemoglobin 13.6 g/dL (11.5-15.4); Immature Granulocytes % 0.4 % (0-4); Lymphocytes # 4.1 K/mcL (0.6-4.6); Mean Corpuscular HGB Conc 31.8 g/dL (31.6-35.5); Mean Corpuscular Hemoglobin 29.7 pg (28.0-33.3); Mean Corpuscular Volume 93.4 fL (83.0-100.0); Mean Platelet Volume 11.1 fL (9.4-12.4); Monocytes # 1.9 K/mcL (0.0-1.3); Monocytes % 13.3 %; Neutrophils # 7.9 K/mcL (1.6-8.9); Platelet Count 201 K/mcL (140-400); Red Blood Count 4.58 M/mcL (3.82-4.97); Red Cell Distribution Width 14.5 % (11.5-14.5); Segmented Neutrophils % 55.8 %
[2017-10-08 06:20] LABS: Calcium 10.1 mg/dL (8.6-10.3)
[2017-10-08] MEDS: Cholecalciferol (D-3) 1,000 UNIT TABLET PO SCH (08:44)
[2017-10-08] MEDS: Aspirin Enteric Coated 325 MG Tablet PO SCH (08:44)
[2017-10-08] MEDS ORDERED: amLODIPine 5 MG TABLET PO SCH (09:00)
[2017-10-08] MEDS ORDERED: (Calcium Carbonate/Vitamin D3 [Calcium 600 + Vit D Tab]) PO SCH (09:00)
--- NOTE | 2017-10-08 19:08 | Internal Med Progress Note ---
Date of Encounter: 10/08/17 Time of Encounter: 11:00 - Assessment and plan (1) Generalized weakness Current Visit: Yes Status: Acute Assessment and plan: Family requesting placement for patient (2) Hypertension Current Visit: Yes Status: Acute Assessment and plan: Controlled; continue medications Qualifiers: Hypertension type: essential hypertension Qualified Code(s): I10 - Essential (primary) hypertension (3) Dementia Current Visit: No Status: Chronic Assessment and plan: Continue home medication Qualifiers: Dementia type: Alzheimer's disease Alzheimer's disease onset: unspecified onset Dementia behavioral disturbance: without behavioral disturbance Qualified Code(s): G30.9 - Alzheimer's disease, unspecified; F02.80 - Dementia in other diseases classified elsewhere without behavioral disturbance; F02.80 - Dementia in other diseases classified elsewhere without behavioral disturbance; F02.80 - Dementia in other diseases classified elsewhere without behavioral disturbance (4) DVT prophylaxis Current Visit: No Status: Acute Assessment and plan: Heparin subcutaneous - Subjective Interval history: Patient is an 87-year-old female who was brought in by her due to inability to bear weight on right. Knee x-ray and exam negative and has been admits that she has been declining and not able to take care of her at home. Physical therapy consulted for placement. - Constitutional Vitals: Temp Pulse Resp BP Pulse Ox 97.6 F 64 14 153/72 97 10/08/17 18:38 10/08/17 18:38 10/08/17 18:38 10/08/17 18:38 10/08/17 18:38 General appearance: Present: A&O X 3, answers questions appropriately - Respiratory Respiratory exam: Present: CTAB. Absent: accessory muscle use, rales, rhonchi, wheezes - Cardiovascular Cardiovascular exam: Present: RRR, +S1, +S2. Absent: diastolic murmur, gallop, rubs, systolic murmur Internal Medicine: Result - Labs CBC & Chem 7: 10/08/17 05:35 10/08/17 05:35 Labs: Short CBC 10/08/17 Range/Units 05:35 WBC 14.1 H (4.3-11.1) K/mcL Hgb 13.6 (11.5-15.4) g/dL Hct 42.8 (35.3-44.9) % Plt Count 201 (140-400) K/mcL Neutrophils # 7.9 (1.6-8.9) K/mcL BMP 10/08/17 05:35 Sodium 139 Potassium 4.0 Chloride 108 H Carbon Dioxide 26 BUN 32 H Creatinine 1.15 Glucose 102 Calcium 10.1 - Stroke Is the patient on any antithrombotics?: Yes Consult Discharge Plan - Plan Referrals: Alexa Prado CNP [Primary Care Provider] -
[2017-10-09] MEDS: *HR* Heparin 5,000 UNIT/ML VIAL SQ SCH ×2 (05:27→16:57)
[2017-10-09] MEDS ORDERED: hydroCHLOROthiazide 25 MG TABLET PO SCH (09:00)
[2017-10-09] MEDS: Aspirin Enteric Coated 325 MG Tablet PO SCH (09:27)
[2017-10-09] MEDS: Cholecalciferol (D-3) 1,000 UNIT TABLET PO SCH (09:27)
[2017-10-09] MEDS: amLODIPine 5 MG TABLET PO SCH (12:28)
--- NOTE | 2017-10-09 13:52 | Internal Med Progress Note ---
Date of Encounter: 10/09/17 Time of Encounter: 08:45 - Assessment and plan (1) Knee pain Current Visit: Yes Status: Acute Assessment and plan: likely due to osteoarthritis; Knee XRay showed no acute abnormality/fracture; supportive care; patient;s family desires placement per previous notes, as they are unable to care for her at home; awaiting PT/OT evaluation; Qualifiers: Chronicity: acute Laterality: right Qualified Code(s): M25.561 - Pain in right knee (2) Osteoporosis Current Visit: Yes Status: Chronic Qualifiers: Osteoporosis type: other Presence of current pathological fracture: unspecified Qualified Code(s): M81.8 - Other osteoporosis without current pathological fracture (3) Chronic kidney disease, stage 3 (moderate) Current Visit: Yes Status: Chronic Assessment and plan: serum creatinine stable, at baseline; hold diuretic at this time; (4) Hypertension Current Visit: Yes Status: Chronic Assessment and plan: BP noted to be uncontrolled; start Norvasc and hold HCTZ to avoid worsening renal function; Qualifiers: Hypertension type: essential hypertension Qualified Code(s): I10 - Essential (primary) hypertension (5) Dementia Current Visit: Yes Status: Chronic Assessment and plan: supportive care; fall precautions; Qualifiers: Dementia type: Alzheimer's disease Alzheimer's disease onset: unspecified onset Dementia behavioral disturbance: without behavioral disturbance Qualified Code(s): G30.9 - Alzheimer's disease, unspecified; F02.80 - Dementia in other diseases classified elsewhere without behavioral disturbance; F02.80 - Dementia in other diseases classified elsewhere without behavioral disturbance; F02.80 - Dementia in other diseases classified elsewhere without behavioral disturbance - Subjective Interval history: Feels better; reports persistent right knee pain and leg weakness, inability to bear weight on right leg; awaiting PT evaluation; - Constitutional Vitals: Temp Pulse Resp BP Pulse Ox 97.9 F 58 16 146/61 96 10/09/17 11:35 10/09/17 11:35 10/09/17 11:35 10/09/17 11:35 10/09/17 11:35 General appearance: Present: A&O X 3, answers questions appropriately - Respiratory Respiratory exam: Present: CTAB. Absent: accessory muscle use, rales, rhonchi, wheezes - Cardiovascular Cardiovascular exam: Present: RRR, +S1, +S2. Absent: diastolic murmur, gallop, rubs, systolic murmur - GI/Abdominal GI/Abdominal exam: Present: normal bowel sounds, soft, no peritoneal signs. Absent: distended, tenderness - Extremities Exam Extremities exam: Present: full ROM (restricted in right knee), warm, radial pulses palpable and symmetrical. Absent: calf tenderness, cyanotic, pedal edema - Neurological Exam Neurological exam: Present: CN II-XII intact, oriented X3, no focal deficits. Absent: pronater drift, facial droop, speech deficit Internal Medicine: Result - Labs CBC & Chem 7: 10/08/17 05:35 10/08/17 05:35 - Stroke Is the patient on any antithrombotics?: Yes Consult Discharge Plan - Plan Referrals: Alexa Prado CNP [Primary Care Provider] -
[2017-10-10] MEDS: *HR* Heparin 5,000 UNIT/ML VIAL SQ SCH ×2 (05:41→17:15)
[2017-10-10] MEDS: Cholecalciferol (D-3) 1,000 UNIT TABLET PO SCH (08:17)
[2017-10-10] MEDS: Aspirin Enteric Coated 325 MG Tablet PO SCH (08:17)
[2017-10-10] MEDS: amLODIPine 5 MG TABLET PO SCH (08:17)
[2017-10-10 08:42] LABS: Basophils % 0.3 %; Eosinophils # 0.2 K/mcL (0.0-0.6); Eosinophils % 1.3 %; Hematocrit 37.3 % (35.3-44.9); Hemoglobin 12.1 g/dL (11.5-15.4); Immature Granulocytes % 0.4 % (0-4); Lymphocytes # 3.6 K/mcL (0.6-4.6); Lymphocytes % 25.1 %; Mean Corpuscular HGB Conc 32.4 g/dL (31.6-35.5); Mean Corpuscular Hemoglobin 30.2 pg (28.0-33.3); Mean Platelet Volume 11.3 fL (9.4-12.4); Monocytes % 14.3 %; Neutrophils # 8.3 K/mcL (1.6-8.9); Platelet Count 175 K/mcL (140-400); Red Blood Count 4.01 M/mcL (3.82-4.97); Red Cell Distribution Width 14.8 % (11.5-14.5); Segmented Neutrophils % 58.6 %
[2017-10-10 08:46] LABS: Calcium 9.4 mg/dL (8.6-10.3); Potassium 4.1 mEq/L (3.5-5.1)
--- NOTE | 2017-10-10 12:29 | Discharge Summary ---
Date of Encounter: 10/10/17 Time of Encounter: 09:45 - Discharge Diagnosis (1) Knee pain Priority: Primary Status: Acute Qualifiers: Chronicity: acute Laterality: right Qualified Code(s): M25.561 - Pain in right knee (2) Osteoporosis Priority: Secondary Status: Chronic Qualifiers: Osteoporosis type: other Presence of current pathological fracture: unspecified Qualified Code(s): M81.8 - Other osteoporosis without current pathological fracture (3) Chronic kidney disease, stage 3 (moderate) Priority: Secondary Status: Chronic (4) Hypertension Priority: Secondary Status: Chronic Qualifiers: Hypertension type: essential hypertension Qualified Code(s): I10 - Essential (primary) hypertension (5) Dementia Priority: Secondary Status: Chronic Qualifiers: Dementia type: Alzheimer's disease Alzheimer's disease onset: late-onset Dementia behavioral disturbance: without behavioral disturbance Qualified Code (s): G30.1 - Alzheimer's disease with late onset; F02.80 - Dementia in other diseases classified elsewhere without behavioral disturbance; F02.80 - Dementia in other diseases classified elsewhere without behavioral disturbance; F02.80 - Dementia in other diseases classified elsewhere without behavioral disturbance Hospital course: Ms. Byrnes is a 87 year old female with the above medical problems, who was admitted with new onset of right knee pain and weakness in right lower extremity. She could not bear weight or ambulate on her right leg. Right knee x-ray done in the emergency room showed no acute abnormality, no trauma/ fracture. Basic labs were normal except mild leukocytosis, which remained stable. Physical and occupational therapy evaluation was completed, recommended ECF placement. Patient's family was agreeable as they could not care for her at home at this time. Patient is now medically stable for this transfer. Discharge discussed with: patient - Time Spent with Patient Total time spent providing and/or coordinating discharge services: Greater than 30 minutes (45 min) - Discharge Medications Home Medications: Calcium Carbonate/Vitamin D3 [Calcium 600 + Vit D Tablet] 1 tab PO DAILY [History] Vit A/Vit C/Vit E/Zinc/Copper [Preservision Areds Tablet] 1 tab PO DAILY [History] Metoprolol [Lopressor] 25 mg PO BID 10/31/15 [History] Atorvastatin [Lipitor] 40 mg PO HS #30 tablet 11/02/15 [Rx] Donepezil [Aricept] 10 mg PO HS 06/05/17 [History] Aspirin Enteric Coated [Aspirin EC] 325 mg PO DAILY #30 tablet. 06/07/17 [Rx] Docusate [Colace] 100 mg PO DAILY PRN 10/07/17 [History] Ergocalciferol (VITAMIN D2) [Vitamin D] 400 unit PO BID 10/07/17 [History] amLODIPine [Norvasc] 10 mg PO DAILY tablet 10/11/17 [Rx] Allergies/Adverse Reactions: 3 Allergy/AdvReac Type Severity Reaction Status Date / Time Cyproheptadine Allergy Rash Verified 10/07/17 16:35 [From Periactin] Erythromycin Base Allergy Rash Verified 10/07/17 16:35 [From Ilosone] NSAIDS (Non-Steroidal Allergy Rash Verified 10/07/17 16:35 Anti-Inflamma nutri sweet Allergy Rash Uncoded 10/07/17 16:35 Date of admission: 10/07/17 16:54 Primary care physician: Alexa Prado CNP Consults: 10/07/17 18:12 Consult to Nutrition [CONS] Routine Comment: Consulting Provider: NUTRITION Reason for Dietary Consult: Diet Education Consult to Pastoral Services [CONS] Routine Comment: 10/07/17 18:38 Consult to Occupational Therapy [CONS] Routine Comment: Evaluate, develop and implement POC Reason for Consult: knee pain, unable to ambulate Does patient have active BEDREST order?: No Is patient medically & hemodynamically stable?: Yes Consult to Physical Therapy [CONS] Routine Comment: Evaluate, develop and implement POC Reason for Consult: Knee pain, unable to ambulate Does patient have active BEDREST order?: No Is patient medically & hemodynamically stable?: Yes Discharging clinician: Jeanne Corbin Anticipated date of discharge: 10/10/17 - Constitutional Vitals: Temp Pulse Resp BP Pulse Ox 97.9 F 62 18 118/71 97 10/10/17 10:03 10/10/17 10:03 10/10/17 10:03 10/10/17 10:03 10/10/17 10:03 General appearance: Present: A&O X 2, answers questions appropriately - Cardiovascular Cardiovascular exam: Present: RRR, +S1, +S2, systolic murmur. Absent: diastolic murmur, gallop, rubs - Patient Status Disposition: Transfer SNF Condition: Fair Functional capacity at discharge: uses cane/walker Overall status at discharge: patient is progressing back to baseline - Discharge Instructions Follow Up With: Alexa Prado CNP [Primary Care Provider] - Additional Instructions: F/up with PCP in 1-2 weeks - Diet and Activity Activity: as per physical therapy Diet: low fat, low cholesterol, low salt diet - Stroke Is the patient on any antithrombotics?: Yes
--- NOTE | 2017-10-10 12:33 | Physician Discharge Referral ---
ExtendedCare Referral Info Provider in Charge: Jeanne Corbin Provider in Charge after Transfer: PCP Institutional Level of Care: Skilled - Diagnosis (1) Knee pain Priority: Primary Status: Acute (2) Osteoporosis Priority: Secondary Status: Chronic (3) Chronic kidney disease, stage 3 (moderate) Priority: Secondary Status: Chronic (4) Hypertension Priority: Secondary Status: Chronic (5) Dementia Priority: Secondary Status: Chronic Expected Duration of Placement: 2 weeks Prognosis: Fair Aware of Diagnosis: Patient - Transfer Medications Home Medications: Calcium Carbonate/Vitamin D3 [Calcium 600 + Vit D Tablet] 1 tab PO DAILY [History] Vit A/Vit C/Vit E/Zinc/Copper [Preservision Areds Tablet] 1 tab PO DAILY [History] Metoprolol [Lopressor] 25 mg PO BID 10/31/15 [History] Atorvastatin [Lipitor] 40 mg PO HS #30 tablet 11/02/15 [Rx] Donepezil [Aricept] 10 mg PO HS 06/05/17 [History] Aspirin Enteric Coated [Aspirin EC] 325 mg PO DAILY #30 tablet. 06/07/17 [Rx] Docusate [Colace] 100 mg PO DAILY PRN 10/07/17 [History] Ergocalciferol (VITAMIN D2) [Vitamin D] 400 unit PO BID 10/07/17 [History] amLODIPine [Norvasc] 5 mg PO DAILY tablet 10/10/17 [Rx] Allergies/Adverse Reactions: 3 Allergy/AdvReac Type Severity Reaction Status Date / Time Cyproheptadine Allergy Rash Verified 10/07/17 16:35 [From Periactin] Erythromycin Base Allergy Rash Verified 10/07/17 16:35 [From Ilosone] NSAIDS (Non-Steroidal Allergy Rash Verified 10/07/17 16:35 Anti-Inflamma nutri sweet Allergy Rash Uncoded 10/07/17 16:35 - Respiratory Orders Smoking Cessation: Smoking cessation has been advised. For more information, call the [place] Tobacco Quit Line at 6-069-PWEH-NOW. - Advance Directives Code Status: Full Code - Mobility Orders Ambulate - Rehabiliation Orders Rehab Potential: Fair Rehab Orders: ROM Exercises, Evaluation for Physical Therapy, Evaluation for Occupational Therapy - Diet Orders Cardiac CERTIFICATION: I certify that the transfer of the above named patient to an Extended Care Facility is necessary for the continuing treatment of the diagnosis listed. The above information is true and accurate reflection of patient's current condition. Confidential - Redisclosure prohibited without a patient's written consent.
[2017-10-10 21:28] LABS: Bilirubin,Urine Negative (Negative); Blood,Urine Negative (Negative); Clarity,Urine Cloudy (Clear); Color,Urine Yellow (Yellow); Glucose,Urine (UA) Normal (Normal); Ketones,Urine Negative (Negative); Leukocyte Esterase,Urine Moderate (Negative); Nitrite,Urine Negative (Negative); PH,Urine 5.5 pH Units (5.0-8.0); Protein,Urine Negative (Neg-Trace); Specific Gravity,Urine 1.027 (1.010-1.025); Urobilinogen,Urine Normal (Normal)
[2017-10-10 21:30] LABS: Bacteria,Urine None Seen per hpf (None-Few); Hyaline Casts,Urine None Seen per lpf (None-Few); Squamous Epithelial Cell,Urine Many per lpf (None-Few); WBC,Urine 30-50 per hpf (0-3)
[2017-10-11] MEDS: *HR* Heparin 5,000 UNIT/ML VIAL SQ SCH (05:15)
[2017-10-11] MEDS ORDERED: amLODIPine 5 MG TABLET PO SCH (09:24)
[2017-10-11] MEDS ORDERED: Acetaminophen 325 MG TABLET PO PRN (09:38)
[2017-10-11] MEDS: Cholecalciferol (D-3) 1,000 UNIT TABLET PO SCH (10:00)
[2017-10-11] MEDS: Aspirin Enteric Coated 325 MG Tablet PO SCH (10:00)
[2017-10-11 14:57] VITALS: BP 160/72
--- NOTE | 2017-10-11 15:07 | Internal Med Progress Note ---
Date of Encounter: 10/11/17 Time of Encounter: 10:15 - Assessment and plan (1) Knee pain Current Visit: Yes Status: Acute Assessment and plan: likely due to osteoarthritis; Knee XRay showed no acute abnormality/fracture; supportive care; pain control with Lidoderm patch, when necessary Tylenol. physical and occupational therapy evaluation noted, recommend ECF placement. Patient was discharged yesterday, awaiting rehabilitation placement, stable for discharge today. litigation services manager on board. Qualifiers: Chronicity: acute Laterality: right Qualified Code(s): M25.561 - Pain in right knee (2) Osteoporosis Current Visit: Yes Status: Chronic Qualifiers: Osteoporosis type: other Presence of current pathological fracture: unspecified Qualified Code(s): M81.8 - Other osteoporosis without current pathological fracture (3) Chronic kidney disease, stage 3 (moderate) Current Visit: Yes Status: Chronic Assessment and plan: serum creatinine stable, at baseline; (4) Hypertension Current Visit: Yes Status: Chronic Assessment and plan: BP noted to be uncontrolled; increase Norvasc; Qualifiers: Hypertension type: essential hypertension Qualified Code(s): I10 - Essential (primary) hypertension (5) Dementia Current Visit: Yes Status: Chronic Qualifiers: Dementia type: Alzheimer's disease Alzheimer's disease onset: late-onset Dementia behavioral disturbance: without behavioral disturbance Qualified Code (s): G30.1 - Alzheimer's disease with late onset; F02.80 - Dementia in other diseases classified elsewhere without behavioral disturbance; F02.80 - Dementia in other diseases classified elsewhere without behavioral disturbance; F02.80 - Dementia in other diseases classified elsewhere without behavioral disturbance - Subjective Interval history: reports some diarrhea today; no abdominal pain, nausea, vomiting; ambulating with assistance; awaiting rehab placement; - Constitutional Vitals: Temp Pulse Resp BP Pulse Ox 98.6 F 59 16 160/72 93 10/11/17 10:55 10/11/17 11:40 10/11/17 11:40 10/11/17 11:40 10/11/17 10:55 General appearance: Present: A&O X 2, answers questions appropriately - Respiratory Respiratory exam: Present: CTAB. Absent: accessory muscle use, rales, rhonchi, wheezes - Cardiovascular Cardiovascular exam: Present: RRR, +S1, +S2. Absent: diastolic murmur, gallop, rubs, systolic murmur - GI/Abdominal GI/Abdominal exam: Present: normal bowel sounds, soft, no peritoneal signs. Absent: distended, tenderness Internal Medicine: Result - Labs CBC & Chem 7: 10/10/17 08:04 10/10/17 08:04 Labs: Urine 10/10/17 Range/Units 21:24 Urine Color Yellow (Yellow) Urine Clarity Cloudy A (Clear) Urine pH 5.5 (5.0-8.0) pH Units Ur Specific [place] 1.027 H (1.010-1.025) Urine Protein Negative (Neg-Trace) mg/dL Urine Glucose (UA) Normal (Normal) mg/dL - Stroke Is the patient on any antithrombotics?: Yes Consult Discharge Plan - Plan Additional Instructions: F/up with PCP in 1-2 weeks Referrals: Alexa Prado CNP [Primary Care Provider] -
== END 2017-10-11 15:35 ==
LOC: 3ANU 15:07 → EMEROO 15:07 → SUATTDRO 16:54 → 3ANU 17:50
PROVIDERS: ADMIT Student in an Organized Health Care Education/Training Program; ATTEND Internal Medicine

== ENCOUNTER 2018-10-31 08:53 | Inpatient (IN) ==
--- NOTE | 2018-10-31 09:37 | Emergency Department Note ---
Disposition Clinical Impression: Acute hypoxemic respiratory failure, Pleural effusion, right Pneumonia Qualifiers: Pneumonia type: due to unspecified organism Laterality: right Lung location: unspecified part of lung Qualified Code(s): J18.9 - Pneumonia, unspecified organism Disposition: Admitted As Inpatient Condition: Fair Time of Disposition: 12:00 General Adult HPI - General Chief complaint: ED Shortness of Breath/Dyspnea Stated complaint: SOB Time Seen by Provider: 10/31/18 09:11 Source: patient, EMS Mode of arrival: EMS Limitations: other (hard of hearing ) Nursing Notes Reviewed: Yes Vital Signs Reviewed: Yes - History of Present Illness HPI Narrative: Ms. Byrnes is an 88F who presented today from [facility] for reported increase in supplemental oxygen need. Patient's daughters at bedside who provides most of the history of present illness since patient has baseline dementia. Reports patient was recently diagnosed with right-sided pleural effusion at [facility]. Patient has not had any complaints of shortness of breath, fever, chills, chest pain, cough, or increased sputum production. However, patient has required supplemental O2 up to 5 L/m. At her baseline she is not on supplemental O2. Pain Scale: 0 - Related Data Home Medications Medication Instructions Recorded Confirmed Calcium Carbonate/Vitamin D3 1 tab PO DAILY 10/02/15 07/22/18 [Calcium 600 + Vit D Tablet] Vit A/Vit C/Vit E/Zinc/Copper 1 tab PO DAILY 10/02/15 07/22/18 [Preservision Areds Tablet] Metoprolol [Lopressor] 25 mg PO BID 10/31/15 07/22/18 Donepezil [Aricept] 10 mg PO HS 06/05/17 07/22/18 Docusate [Colace] 100 mg PO DAILY PRN 10/07/17 07/22/18 Albuterol Sulfate [Proair Hfa] 2 puff IH Q6H PRN 07/22/18 07/22/18 Fexofenadine HCl [Allergy Relief] 180 mg PO DAILY 07/22/18 07/22/18 Hydrochlorothiazide [Microzide] 12.5 mg PO DAILY 07/22/18 07/22/18 Previous Rx's Medication Instructions Recorded Atorvastatin [Lipitor] 40 mg PO HS #30 tablet 11/02/15 Aspirin Enteric Coated [Aspirin EC] 325 mg PO DAILY #30 tablet. 06/07/17 Acetaminophen [Tylenol] 650 mg PO Q6HR PRN #60 tablet 07/29/18 Cholecalciferol (D-3) [Vitamin D] 1,000 unit PO DAILY #60 tablet 07/29/18 Allergies Allergy/AdvReac Type Severity Reaction Status Date / Time Cyproheptadine Allergy Rash Verified 10/07/17 16:35 [From Periactin] Erythromycin Base Allergy Rash Verified 10/07/17 16:35 [From Ilosone] NSAIDS (Non-Steroidal Allergy Rash Verified 10/07/17 16:35 Anti-Inflamma nutri sweet Allergy Rash Uncoded 10/07/17 16:35 All systems ED: reviewed and negative except as stated. Review of Systems: As Per HPI Constitutional: Denies: fever, chills Cardiovascular: Denies: chest pain Respiratory: Denies: cough, dyspnea Past Medical History - Past Medical History Attestation: No The following information was validated with the patient. Source: old records reviewed, obtained from family, nursing notes reviewed Medical history: Reports: hypertension, osteoporosis, TIA, other Surgical history: Reports: cataract Psychiatric history: Reports: no psych history - Social History Smoking Status: Never smoker Smokeless Tobacco Status: No Alcohol use: Reports: none Drug use: Reports: none Physical Exam - General Limitations: no limitations, other (hard of hearing) General appearance: alert, in no apparent distress - Head Head exam: atraumatic, normocephalic, normal inspection - Eye Eye exam: Present: normal appearance, PERRL, EOMI. Absent: scleral icterus - ENT ENT exam: normal exam, normal oropharynx, mucous membranes dry - Neck Neck exam: Present: normal inspection, full ROM, trachea midline - Chest Chest inspection: Present: normal inspection, symmetric chest wall rise - Respiratory Respiratory exam: Present: other (Significantly Decreased breath sounds in the right lower lung field. Grossly diminished breath sounds throughout). Absent: respiratory distress, wheezes - Cardiovascular Cardiovascular exam: Present: regular rate, normal rhythm, normal heart sounds, +S1, +S2 - Abdominal Exam Abdominal exam: Present: soft, Non-Tender. Absent: tenderness, distention, guarding, rebound, rigidity - Extremities Exam Extremities exam: Present: normal inspection, full ROM, pedal edema (+1 pitting edema bilaterally). Absent: tenderness, calf tenderness - Back Exam Back exam: Present: other (Significant kyphosis. Otherwise normal inspection. No tenderness) - Neurological Exam Neurological exam: Present: alert, other (Oriented to person and place. Family Reports this is patient's baseline) - Psychiatric Psychiatric exam: Present: normal affect, normal mood - Skin Skin exam: Present: warm, dry, intact, normal color Course Course Narrative: Patient presented for complaint of increased supplemental O2 need. Initial history and physical exam revealed concern for pleural effusion, and pneumonia. Less likely diagnoses considered, including ACS and PE, unlikely due to patient presentation with EKG showing no acute changes. Initial evaluation included lab work of CBC, BMP, and PT/INR. Chest x-ray was ordered. Imaging revealed large right-sided pleural effusion. Interventional radiology was contacted for possible thoracentesis. Hospitalist was contacted for admission for respiratory failure secondary to large right-sided pleural effusion with possible pneumonia. - Consultations Consultation #1: Spoke with Dr. Ventura of interventional radiology in regards to potential right- sided thoracentesis for right pleural effusion. Plan for patient to undergo thoracentesis today and subsequently be admitted. We will contact hospitalist momentarily Time: 11:21 Consultation #2: Dr. Virk accepted patient for admission. Stable to transfer to the floor. Time: 11:47 Vital Signs Temperature 98.2 F 10/31/18 08:57 Pulse Rate 66 10/31/18 08:57 Respiratory Rate 22 10/31/18 08:57 Blood Pressure 157/71 10/31/18 08:57 O2 Sat by Pulse Oximetry 95 10/31/18 08:57 Temperature 98.5 F 11/02/18 06:46 Pulse Rate 80 11/02/18 06:46 Respiratory Rate 18 11/02/18 06:46 Blood Pressure 165/79 11/02/18 06:46 O2 Sat by Pulse Oximetry 92 11/02/18 06:46 Oxygen Delivery Oxygen Delivery Nasal Cannula Medical Decision Making - [facility] Narrative Medical decision making narrative: Patient presented for complaint of increased supplemental O2 need. Initial history and physical exam revealed concern for pleural effusion, and pneumonia. Less likely diagnoses considered, including ACS and PE, unlikely due to patient presentation with EKG showing no acute changes. Initial evaluation included lab work of CBC, BMP, and PT/INR. Chest x-ray was ordered. Imaging revealed large right-sided pleural effusion. Lab work was significant for leukocytosis with neutrophilic shift. Again suspecting pneumonia vs reactive leukocytosis. Pt was started on empiric antibiotics. Considered IV fluid resuscitation, however pt has significant bilateral pitting edema in the lower extremities with concern for volume overload. Plan to admit for respiratory failure with right sided pleural effusion with p ossible pneumonia. - Medical Records Medical records reviewed: Yes I reviewed the patient's medical records. - Lab Data Lab results reviewed: Yes I reviewed the patient's lab results. Result diagrams: 11/02/18 04:00 11/02/18 04:00 Lab Results 10/31/18 10/31/18 10/31/18 Range/Units 09:59 09:59 09:59 WBC 19.2 H (4.3-11.1) K/mcL RBC 4.25 (3.82-4.97) M/mcL Hgb 12.2 (11.5-15.4) g/dL Hct 41.7 (35.3-44.9) % MCV 98.1 (83.0-100.0) fL MCH 28.7 (28.0-33.3) pg MCHC 29.3 L (31.6-35.5) g/dL RDW 16.3 H (11.5-14.5) % Plt Count 300 (140-400) K/mcL MPV 10.7 (9.4-12.4) fL Immature Gran % 0.6 (0-4) % Seg Neutrophils % 75.7 % Lymphocytes % 12.4 % Monocytes % 10.2 % Eosinophils % 0.8 % Basophils % 0.3 % Neutrophils # 14.6 H (1.6-8.9) K/mcL Lymphocytes # 2.4 (0.6-4.6) K/mcL Monocytes # 2.0 H (0.0-1.3) K/mcL Eosinophils # 0.2 (0.0-0.6) K/mcL Basophils # 0.1 (0.0-0.2) K/mcL PT 11.9 (9.4-12.1) Seconds INR 1.1 Sodium 141 (136-145) mEq/L Potassium 4.6 (3.5-5.1) mEq/L Chloride 104 (98-107) mEq/L Carbon Dioxide 29 (23-29) mEq/L BUN 50 H (8-23) mg/dL Creatinine 1.33 H (0.60-1.20) mg/dL Est GFR ( Amer) 46 L (> 60) Est GFR (Non-Af Amer) 38 L (> 60) BUN/Creatinine Ratio 38 H (6-26) Glucose 113 H (70-105) mg/dL Calculated Osmolality 306 H (280-300) Lactic Acid (0.5-2.2) mmol/L Calcium 9.9 (8.6-10.3) mg/dL Pleural Fluid Volume mL Pleural Appearance (Clear) Pleural pH (No Ref Range) pH Units Pleural RBC (0.000 - 0.002) M/mcL Pleural Tot Nuc Cell (0-1000) TNC/mcL Pleural Neutrophils % Pleural Lymphocytes % % Pleural Monocytes % % Pleural Total Protein (No Ref Range) g/dL Pleural LDH (No Ref Range) Units/L Pleural Glucose (No Ref Range) mg/dL Pleural Amylase (No Ref Range) Units/L Specimen Rejected 10/31/18 10/31/18 10/31/18 Range/Units 09:59 11:04 11:58 WBC (4.3-11.1) K/mcL RBC (3.82-4.97) M/mcL Hgb (11.5-15.4) g/dL Hct (35.3-44.9) % MCV (83.0-100.0) fL MCH (28.0-33.3) pg MCHC (31.6-35.5) g/dL RDW (11.5-14.5) % Plt Count (140-400) K/mcL MPV (9.4-12.4) fL Immature Gran % (0-4) % Seg Neutrophils % % Lymphocytes % % Monocytes % % Eosinophils % % Basophils % % Neutrophils # (1.6-8.9) K/mcL Lymphocytes # (0.6-4.6) K/mcL Monocytes # (0.0-1.3) K/mcL Eosinophils # (0.0-0.6) K/mcL Basophils # (0.0-0.2) K/mcL PT (9.4-12.1) Seconds INR Sodium (136-145) mEq/L Potassium (3.5-5.1) mEq/L Chloride (98-107) mEq/L Carbon Dioxide (23-29) mEq/L BUN (8-23) mg/dL Creatinine (0.60-1.20) mg/dL Est GFR ( Amer) (> 60) Est GFR (Non-Af Amer) (> 60) BUN/Creatinine Ratio (6-26) Glucose (70-105) mg/dL Calculated Osmolality (280-300) Lactic Acid 1.0 (0.5-2.2) mmol/L Calcium (8.6-10.3) mg/dL Pleural Fluid Volume mL Pleural Appearance (Clear) Pleural pH (No Ref Range) pH Units Pleural RBC (0.000 - 0.002) M/mcL Pleural Tot Nuc Cell (0-1000) TNC/mcL Pleural Neutrophils % Pleural Lymphocytes % % Pleural Monocytes % % Pleural Total Protein 4.2 (No Ref Range) g/dL Pleural LDH 184 (No Ref Range) Units/L Pleural Glucose 124 (No Ref Range) mg/dL Pleural Amylase 23 (No Ref Range) Units/L Specimen Rejected Hemolyzed 10/31/18 10/31/18 Range/Units 11:58 11:58 WBC (4.3-11.1) K/mcL RBC (3.82-4.97) M/mcL Hgb (11.5-15.4) g/dL Hct (35.3-44.9) % MCV (83.0-100.0) fL MCH (28.0-33.3) pg MCHC (31.6-35.5) g/dL RDW (11.5-14.5) % Plt Count (140-400) K/mcL MPV (9.4-12.4) fL Immature Gran % (0-4) % Seg Neutrophils % % Lymphocytes % % Monocytes % % Eosinophils % % Basophils % % Neutrophils # (1.6-8.9) K/mcL Lymphocytes # (0.6-4.6) K/mcL Monocytes # (0.0-1.3) K/mcL Eosinophils # (0.0-0.6) K/mcL Basophils # (0.0-0.2) K/mcL PT (9.4-12.1) Seconds INR Sodium (136-145) mEq/L Potassium (3.5-5.1) mEq/L Chloride (98-107) mEq/L Carbon Dioxide (23-29) mEq/L BUN (8-23) mg/dL Creatinine (0.60-1.20) mg/dL Est GFR ( Amer) (> 60) Est GFR (Non-Af Amer) (> 60) BUN/Creatinine Ratio (6-26) Glucose (70-105) mg/dL Calculated Osmolality (280-300) Lactic Acid (0.5-2.2) mmol/L Calcium (8.6-10.3) mg/dL Pleural Fluid Volume 1000.0 mL Pleural Appearance Hazy A (Clear) Pleural pH 8.00 (No Ref Range) pH Units Pleural RBC 0.003 H (0.000 - 0.002) M/mcL Pleural Tot Nuc Cell 1615 H (0-1000) TNC/mcL Pleural Neutrophils 43.0 % Pleural Lymphocytes % 49.0 % Pleural Monocytes % 8.0 % Pleural Total Protein (No Ref Range) g/dL Pleural LDH (No Ref Range) Units/L Pleural Glucose (No Ref Range) mg/dL Pleural Amylase (No Ref Range) Units/L Specimen Rejected - Radiology Data Radiology results reviewed: Yes I reviewed the patient's radiology results. Thoracentesis 10/31/18 11:10 IMPRESSION: Successful ultrasound guided thoracentesis. D/ / Lee Ann Ventura MD / Lee Ann Ventura MD Interpreting Provider: Lee Ann Ventura MD Chest X-Ray 10/31/18 12:02 IMPRESSION: 1. Status post right thoracentesis with interval decrease in size of a now moderate right effusion. No pneumothorax identified. 2. Mild edema. 3. Bibasilar opacities with small left effusion and moderate right pleural effusion. 4. Cardiomegaly. D/ / 10/31/2018 12:30:42 Mira Prakash MD / marita Interpreting Provider: Mira Prakash MD Echocardiogram 11/01/18 07:39 Impressions: LVEF 65-70%. Mild left ventricular diastolic dysfunction. Normal right ventricular size and function. Mild tricuspid regurgitation. Mild pulmonic regurgitation. Unable to estimate RVSP due to lack of IVC visualization. Mild to moderate pulmonary hypertension. Left Ventricular Wall Motion: Rest Echo Findings All wall segments showed normal motion. Findings: Study Quality * Technically adequate exam. ECG Findings * Sinus rhythm with BBB. Left Ventricle * LVEF 65-70%. * Normal LV chamber size, wall thickness and systolic function. * Mild left ventricular diastolic dysfunction. Right Ventricle * Normal right ventricular structure and function. Left Atrium * Normal left atrial size. Right Atrium * Normal right atrial size. Interatrial Septum * Interatrial septum not well evaluated. Aortic Valve * Trileaflet aortic valve. * Moderately sclerotic aortic valve leaflets. * No aortic stenosis. * Trace aortic regurgitation. Mitral Valve * Mild mitral annular calcification * No mitral stenosis. * Trace mitral regurgitation. Tricuspid Valve * Normal tricuspid valve structure. * No tricuspid stenosis. * Mild tricuspid regurgitation. * Unable to estimate RVSP due to lack of IVC visualization. * Mild to moderate pulmonary hypertension. Pulmonic Valve * Pulmonic valve is not well visualized. * No pulmonic stenosis. * Mild pulmonic regurgitation. Aorta * Normally sized aortic root. Pericardium * The pericardium appears normal. IVC * The IVC is not well evaluated. - EKG Data EKG #1 EKG attestation: Yes I reviewed and interpreted this EKG. EKG shows normal: sinus rhythm Rate: normal Rhythm: NSR Mcintyre/QRS: normal, RBBB When compared to previous EKG there are: no significant changes Interpretation: no acute changes
[2018-10-31 10:15] LABS: Basophils # 0.1 K/mcL (0.0-0.2); Basophils % 0.3 %; Eosinophils # 0.2 K/mcL (0.0-0.6); Eosinophils % 0.8 %; Hematocrit 41.7 % (35.3-44.9); Hemoglobin 12.2 g/dL (11.5-15.4); Immature Granulocytes % 0.6 % (0-4); Lymphocytes # 2.4 K/mcL (0.6-4.6); Lymphocytes % 12.4 %; Mean Corpuscular HGB Conc 29.3 g/dL (31.6-35.5); Mean Corpuscular Hemoglobin 28.7 pg (28.0-33.3); Mean Corpuscular Volume 98.1 fL (83.0-100.0); Mean Platelet Volume 10.7 fL (9.4-12.4); Monocytes % 10.2 %; Neutrophils # 14.6 K/mcL (1.6-8.9); Platelet Count 300 K/mcL (140-400); Red Blood Count 4.25 M/mcL (3.82-4.97); Red Cell Distribution Width 16.3 % (11.5-14.5); Segmented Neutrophils % 75.7 %
[2018-10-31 10:34] LABS: Calcium 9.9 mg/dL (8.6-10.3); Potassium 4.6 mEq/L (3.5-5.1)
[2018-10-31 11:07] LABS: INR 1.1; Prothrombin Time 11.9 Seconds (9.4-12.1)
--- NOTE | 2018-10-31 11:08 | Emergency Department Note ---
Disposition Clinical Impression: Acute hypoxemic respiratory failure, Pleural effusion, right Pneumonia Qualifiers: Pneumonia type: due to unspecified organism Laterality: right Lung location: unspecified part of lung Qualified Code(s): J18.9 - Pneumonia, unspecified organism Disposition: Admitted As Inpatient Condition: Fair General Adult HPI - General Chief complaint: ED Shortness of Breath/Dyspnea Stated complaint: SOB Time Seen by Provider: 10/31/18 09:11 Source: patient, EMS Mode of arrival: EMS Limitations: no limitations, other (hard of hearing) - History of Present Illness Pain Scale: 0 - Related Data Home Medications Medication Instructions Recorded Confirmed RX: Calcium Carbonate/Vitamin D3 1 tab PO DAILY 10/02/15 07/22/18 [Calcium 600 + Vit D Tablet] RX: Vit A/Vit C/Vit E/Zinc/Copper 1 tab PO DAILY 10/02/15 07/22/18 [Preservision Areds Tablet] RX: Metoprolol [Lopressor] 25 mg PO BID 10/31/15 07/22/18 RX: Donepezil [Aricept] 10 mg PO HS 06/05/17 07/22/18 RX: Docusate [Colace] 100 mg PO DAILY PRN 10/07/17 07/22/18 RX: Albuterol Sulfate [Proair Hfa] 2 puff IH Q6H PRN 07/22/18 07/22/18 RX: Fexofenadine HCl [Allergy 180 mg PO DAILY 07/22/18 07/22/18 Relief] RX: Hydrochlorothiazide [Microzide] 12.5 mg PO DAILY 07/22/18 07/22/18 Previous Rx's Medication Instructions Recorded RX: Atorvastatin [Lipitor] 40 mg PO HS #30 tablet 11/02/15 RX: Aspirin Enteric Coated 325 mg PO DAILY #30 tablet. 06/07/17 [Aspirin EC] RX: Acetaminophen [Tylenol] 650 mg PO Q6HR PRN #60 tablet 07/29/18 RX: Cholecalciferol (D-3) [Vitamin 1,000 unit PO DAILY #60 tablet 07/29/18 D] Allergies Allergy/AdvReac Type Severity Reaction Status Date / Time Cyproheptadine Allergy Rash Verified 10/07/17 16:35 [From Periactin] Erythromycin Base Allergy Rash Verified 10/07/17 16:35 [From Ilosone] NSAIDS (Non-Steroidal Allergy Rash Verified 10/07/17 16:35 Anti-Inflamma nutri sweet Allergy Rash Uncoded 10/07/17 16:35 Past Medical History - Past Medical History Medical history: Reports: hypertension, osteoporosis, TIA, other Surgical history: Reports: cataract Psychiatric history: Reports: no psych history - Social History Smoking Status: Never smoker Smokeless Tobacco Status: No Alcohol use: Reports: none Drug use: Reports: none Physical Exam - General Limitations: no limitations, other (hard of hearing) General appearance: alert, in no apparent distress Course Vital Signs Temperature 98.2 F 10/31/18 08:57 Pulse Rate 66 10/31/18 08:57 Respiratory Rate 22 10/31/18 08:57 Blood Pressure 157/71 10/31/18 08:57 O2 Sat by Pulse Oximetry 95 10/31/18 08:57 Temperature 98.5 F 11/02/18 06:46 Pulse Rate 80 11/02/18 06:46 Respiratory Rate 18 11/02/18 06:46 Blood Pressure 165/79 11/02/18 06:46 O2 Sat by Pulse Oximetry 92 11/02/18 06:46 Oxygen Delivery Oxygen Delivery Nasal Cannula Medical Decision Making - Lab Data Result diagrams: 11/02/18 04:00 11/02/18 04:00 Lab Results 10/31/18 10/31/18 10/31/18 Range/Units 09:59 09:59 09:59 WBC 19.2 H (4.3-11.1) K/mcL RBC 4.25 (3.82-4.97) M/mcL Hgb 12.2 (11.5-15.4) g/dL Hct 41.7 (35.3-44.9) % MCV 98.1 (83.0-100.0) fL MCH 28.7 (28.0-33.3) pg MCHC 29.3 L (31.6-35.5) g/dL RDW 16.3 H (11.5-14.5) % Plt Count 300 (140-400) K/mcL MPV 10.7 (9.4-12.4) fL Immature Gran % 0.6 (0-4) % Seg Neutrophils % 75.7 % Lymphocytes % 12.4 % Monocytes % 10.2 % Eosinophils % 0.8 % Basophils % 0.3 % Neutrophils # 14.6 H (1.6-8.9) K/mcL Lymphocytes # 2.4 (0.6-4.6) K/mcL Monocytes # 2.0 H (0.0-1.3) K/mcL Eosinophils # 0.2 (0.0-0.6) K/mcL Basophils # 0.1 (0.0-0.2) K/mcL PT 11.9 (9.4-12.1) Seconds INR 1.1 Sodium 141 (136-145) mEq/L Potassium 4.6 (3.5-5.1) mEq/L Chloride 104 (98-107) mEq/L Carbon Dioxide 29 (23-29) mEq/L BUN 50 H (8-23) mg/dL Creatinine 1.33 H (0.60-1.20) mg/dL Est GFR ( Amer) 46 L (> 60) Est GFR (Non-Af Amer) 38 L (> 60) BUN/Creatinine Ratio 38 H (6-26) Glucose 113 H (70-105) mg/dL Calculated Osmolality 306 H (280-300) Lactic Acid (0.5-2.2) mmol/L Calcium 9.9 (8.6-10.3) mg/dL Pleural Fluid Volume mL Pleural Appearance (Clear) Pleural pH (No Ref Range) pH Units Pleural RBC (0.000 - 0.002) M/mcL Pleural Tot Nuc Cell (0-1000) TNC/mcL Pleural Neutrophils % Pleural Lymphocytes % % Pleural Monocytes % % Pleural Total Protein (No Ref Range) g/dL Pleural LDH (No Ref Range) Units/L Pleural Glucose (No Ref Range) mg/dL Pleural Amylase (No Ref Range) Units/L Specimen Rejected 10/31/18 10/31/18 10/31/18 Range/Units 09:59 11:04 11:58 WBC (4.3-11.1) K/mcL RBC (3.82-4.97) M/mcL Hgb (11.5-15.4) g/dL Hct (35.3-44.9) % MCV (83.0-100.0) fL MCH (28.0-33.3) pg MCHC (31.6-35.5) g/dL RDW (11.5-14.5) % Plt Count (140-400) K/mcL MPV (9.4-12.4) fL Immature Gran % (0-4) % Seg Neutrophils % % Lymphocytes % % Monocytes % % Eosinophils % % Basophils % % Neutrophils # (1.6-8.9) K/mcL Lymphocytes # (0.6-4.6) K/mcL Monocytes # (0.0-1.3) K/mcL Eosinophils # (0.0-0.6) K/mcL Basophils # (0.0-0.2) K/mcL PT (9.4-12.1) Seconds INR Sodium (136-145) mEq/L Potassium (3.5-5.1) mEq/L Chloride (98-107) mEq/L Carbon Dioxide (23-29) mEq/L BUN (8-23) mg/dL Creatinine (0.60-1.20) mg/dL Est GFR ( Amer) (> 60) Est GFR (Non-Af Amer) (> 60) BUN/Creatinine Ratio (6-26) Glucose (70-105) mg/dL Calculated Osmolality (280-300) Lactic Acid 1.0 (0.5-2.2) mmol/L Calcium (8.6-10.3) mg/dL Pleural Fluid Volume mL Pleural Appearance (Clear) Pleural pH (No Ref Range) pH Units Pleural RBC (0.000 - 0.002) M/mcL Pleural Tot Nuc Cell (0-1000) TNC/mcL Pleural Neutrophils % Pleural Lymphocytes % % Pleural Monocytes % % Pleural Total Protein 4.2 (No Ref Range) g/dL Pleural LDH 184 (No Ref Range) Units/L Pleural Glucose 124 (No Ref Range) mg/dL Pleural Amylase 23 (No Ref Range) Units/L Specimen Rejected Hemolyzed 10/31/18 10/31/18 Range/Units 11:58 11:58 WBC (4.3-11.1) K/mcL RBC (3.82-4.97) M/mcL Hgb (11.5-15.4) g/dL Hct (35.3-44.9) % MCV (83.0-100.0) fL MCH (28.0-33.3) pg MCHC (31.6-35.5) g/dL RDW (11.5-14.5) % Plt Count (140-400) K/mcL MPV (9.4-12.4) fL Immature Gran % (0-4) % Seg Neutrophils % % Lymphocytes % % Monocytes % % Eosinophils % % Basophils % % Neutrophils # (1.6-8.9) K/mcL Lymphocytes # (0.6-4.6) K/mcL Monocytes # (0.0-1.3) K/mcL Eosinophils # (0.0-0.6) K/mcL Basophils # (0.0-0.2) K/mcL PT (9.4-12.1) Seconds INR Sodium (136-145) mEq/L Potassium (3.5-5.1) mEq/L Chloride (98-107) mEq/L Carbon Dioxide (23-29) mEq/L BUN (8-23) mg/dL Creatinine (0.60-1.20) mg/dL Est GFR ( Amer) (> 60) Est GFR (Non-Af Amer) (> 60) BUN/Creatinine Ratio (6-26) Glucose (70-105) mg/dL Calculated Osmolality (280-300) Lactic Acid (0.5-2.2) mmol/L Calcium (8.6-10.3) mg/dL Pleural Fluid Volume 1000.0 mL Pleural Appearance Hazy A (Clear) Pleural pH 8.00 (No Ref Range) pH Units Pleural RBC 0.003 H (0.000 - 0.002) M/mcL Pleural Tot Nuc Cell 1615 H (0-1000) TNC/mcL Pleural Neutrophils 43.0 % Pleural Lymphocytes % 49.0 % Pleural Monocytes % 8.0 % Pleural Total Protein (No Ref Range) g/dL Pleural LDH (No Ref Range) Units/L Pleural Glucose (No Ref Range) mg/dL Pleural Amylase (No Ref Range) Units/L Specimen Rejected Attestation Statement - Attestation Attestation: I examined this patient and my medical decision-making was reviewed with the MICROSYSTEMS ENGINEER/PA/Advanced Practice Nurse/Resident Physician. I agree with the documented findings, disposition and treatment plan as described except to the extent set forth below. I did see the patient is spoke with her and family and evaluated and I did review an x-ray showing a large pleural effusion and we will contact interventional radiology. Patient does have confusion. At this time she is breathing comfortably. Labs and test results have been reviewed. 1108 The patient does have an elevated white blood cell count and lactate level is not back yet so this is pending and because she is in a extended care facility she is started on Zosyn and vancomycin for consideration of infection. 1109 I did review the EKG showing right bundle branch block with a rate of 66, normal sinus rhythm, nonspecific T-wave abnormality. The patient is on the way over to interventional radiology for a thoracentesis 1217
[2018-10-31] MEDS: Piperacillin/Tazobactam 3.375 GM in 0.9 % Sodium Chloride Mini Bag 100 ML IVPB SCH ×2 (11:34→21:56)
[2018-10-31] MEDS ORDERED: Vancomycin 1 EACH in 0.9 % Sodium Chloride 250 ML IVPB PRN (12:00)
--- NOTE | 2018-10-31 12:52 | IR Procedure Note ---
Date of procedure: 10/31/18 (2521) Consent Obtained: Written consent Timeout: Correct patient and procedure verified, Correct site verified, Time out performed, Skin prep completed ( side was prepped with chlorhexadine and draped in a sterile manner after the appropriate level was confirmed by ultrasound) Local anesthetic: Lidocaine 1% (6 cc) Indications: Large right pleural effusion Procedure Performed: Right-sided thoracentesis Was there an executive chef assistant present: Yes Ceramic Engineering Professor: Lee Ann Ventura Site/Technique: 10-blade scalpel used to make an incision right posterior back Results/Findings: thoracentesis catheter was then threaded without difficulty & fluid removed Estimated blood loss (cc): 0 Complications: None; Tolerated procedure well Post Procedure Treatment Plan: No change Specimen: 1000cc yellow pleural fluid sent for lab analysis
[2018-10-31 14:57] LABS: Total Protein,Pleural Fluid 4.2 g/dL (No Ref Range)
[2018-10-31 15:12] LABS: RBC,Pleural Fluid 0.003 M/mcL
--- NOTE | 2018-10-31 15:35 | Electrocardiograph Report ---
[place] [id number] Test Date: 2018-10-31 Pat Name: Krista Byrnes Department: EXAM9 Room: 2NE19 Gender: F Digital Research Analyst: : [id number] Requested By: Dileep Alvarenga Order Number: [id number] Reading MD: Oswaldo Shields Measurements Intervals [place] Rate: 66 P: 54 LA: 151 QRS: 51 QRSD: 143 T: 40 QT: 436 QTc: 457 Interpretive Statements Sinus rhythm Right bundle branch block Electronically Signed On 10-31-2018 15:33:38 EDT by Oswaldo Shields
--- NOTE | 2018-10-31 15:51 | Internal Med History&Physical ---
Date of Encounter: 10/31/18 Time of Encounter: 11:00 Internal Medicine - H&P: HPI Chief complaint: Shortness of breath Admitted From: Long-term Nursing Facility Plans for Post Hospital Care: Transfer [facility] History of present illness: Patient is an 88-year-old female with past medical history significant for hypertension and dementia who presents from the long term due to shortness of breath. Due to patients history of dementia she is not able to give much history. Daughter who is at the bedside reports that patient developed acute onset of shortness of breath and was found to have acute hypoxic respiratory failure at the long term and was subsequently transferred to [facility] ER for further eval uation. Patient was found to have a large right pleural effusion and IR was consulted for thoracentesis. In addition in the ER patient was also found to have leukocytosis with white blood cell count of 19.2 in addition to history of present illness with a creatinine of 1.33. Patient will be admitted to medical surgical floor for further monitoring and management. Past Med Surg Social Fam HX - Past Medical History Medical history: hypertension, osteoporosis, TIA, other Psychiatric history: no psych history - Past Surgical History Surgical History: cataract Additional surgical history: Bowel resection - Social History Smoking Status: Never smoker Smokeless Tobacco Status: No Alcohol use: none Drug use: none - Family History Mother Adopted: No Living Status: Hx Family Cancer: Yes (colon) Father Living Status: Hx Family Cardiac Disorders: Yes Internal Medicine - H&P: Meds Calcium Carbonate/Vitamin D3 [Calcium 600 + Vit D Tablet] 1 tab PO DAILY 10/02/15 [History] Vit A/Vit C/Vit E/Zinc/Copper [Preservision Areds Tablet] 1 tab PO DAILY 10/02/15 [History] Metoprolol [Lopressor] 25 mg PO BID 10/31/15 [History] Atorvastatin [Lipitor] 40 mg PO HS #30 tablet 11/02/15 [Rx] Donepezil [Aricept] 10 mg PO HS 06/05/17 [History] Aspirin Enteric Coated [Aspirin EC] 325 mg PO DAILY #30 tablet. 06/07/17 [Rx] Docusate [Colace] 100 mg PO DAILY PRN 10/07/17 [History] Albuterol Sulfate [Proair Hfa] 2 puff IH Q6H PRN 07/22/18 [History] Fexofenadine HCl [Allergy Relief] 180 mg PO DAILY 07/22/18 [History] Hydrochlorothiazide [Microzide] 12.5 mg PO DAILY 07/22/18 [History] Acetaminophen [Tylenol] 650 mg PO Q6HR PRN #60 tablet 07/29/18 [Rx] Cholecalciferol (D-3) [Vitamin D] 1,000 unit PO DAILY #60 tablet 07/29/18 [Rx] Allergy/AdvReac Type Severity Reaction Status Date / Time Cyproheptadine Allergy Rash Verified 10/07/17 16:35 [From Periactin] Erythromycin Base Allergy Rash Verified 10/07/17 16:35 [From Ilosone] NSAIDS (Non-Steroidal Allergy Rash Verified 10/07/17 16:35 Anti-Inflamma nutri sweet Allergy Rash Uncoded 10/07/17 16:35 All Systems PM: A 10-system review of systems was performed and is negative for pertinent findings except as documented above in the HPI. - Constitutional Vitals: Temp Pulse Resp BP Pulse Ox 98.1 F 77 20 110/62 91 10/31/18 15:43 10/31/18 15:43 10/31/18 15:43 10/31/18 15:43 10/31/18 15:43 Exam: General appearance: Present: A&O X 3, no acute distress - Head Head exam: Present: normocephalic - Eye Eye exam: Present: normal appearance - ENT ENT exam: Present: mucous membranes moist - Respiratory Respiratory exam: Present: CTAB. Absent: accessory muscle use, rales, rhonchi, wheezes - Cardiovascular Cardiovascular exam: Present: RRR, +S1, +S2. Absent: diastolic murmur, gallop, rubs, systolic murmur - GI/Abdominal GI/Abdominal exam: Present: normal bowel sounds, soft, no peritoneal signs. Absent: distended, tenderness - Extremities Exam Extremities exam: Absent: pedal edema - Neurological Exam Neurological exam: Present: alert, oriented X3, no focal deficits. Absent: altered - Psychiatric Psychiatric exam: -normal mood Skin exam: -normal color Internal Med - H&P Results - Labs CBC & Chem 7: 10/31/18 09:59 10/31/18 09:59 Labs: Short CBC 10/31/18 Range/Units 09:59 WBC 19.2 H (4.3-11.1) K/mcL Hgb 12.2 (11.5-15.4) g/dL Hct 41.7 (35.3-44.9) % Plt Count 300 (140-400) K/mcL Neutrophils # 14.6 H (1.6-8.9) K/mcL BMP 10/31/18 09:59 Sodium 141 Potassium 4.6 Chloride 104 Carbon Dioxide 29 BUN 50 H Creatinine 1.33 H Glucose 113 H Calcium 9.9 - Impressions ITS Impressions Chest X-Ray 10/31/18 09:12 IMPRESSION: 1. Interval appearance since July 2018 of near complete opacification of the right hemithorax. Small amount of aerated lung is seen in the upper lobe. 2. Left base opacity with probable trace effusion. 3. Mild edema. 4. Cardiomegaly. D/ / 10/31/2018 10:41:30 Mira Prakash MD / [facility] Interpreting Provider: Mira Prakash MD Thoracentesis 10/31/18 11:10 IMPRESSION: Successful ultrasound guided thoracentesis. D/ / Lee Ann Ventura MD / Lee Ann Ventura MD Interpreting Provider: Lee Ann Ventura MD Chest X-Ray 10/31/18 12:02 IMPRESSION: 1. Status post right thoracentesis with interval decrease in size of a now moderate right effusion. No pneumothorax identified. 2. Mild edema. 3. Bibasilar opacities with small left effusion and moderate right pleural effusion. 4. Cardiomegaly. D/ / 10/31/2018 12:30:42 Mira Prakash MD / [facility] Interpreting Provider: Mira Prakash MD - Assessment and Plan (1) Acute hypoxemic respiratory failure Current Visit: Yes Status: Acute Assessment and plan: Patient found at the long term to have acute hypoxic respiratory failure requiring supplemental O2. In the ER patient was found to have right large pleural effusion Patient is now status post thoracentesis by IR; a total of 1 L cc drained and studies pending (2) Leukocytosis Current Visit: No Status: Acute Assessment and plan: Unclear etiology but suspicion for pneumonia therefore antibiotics started in the ER for coverage Will order respiratory panel Will continue IV antibiotics for now. Qualifiers: Leukocytosis type: unspecified Qualified Code(s): D72.829 - Elevated white blood cell count, unspecified (3) Chronic kidney disease, stage 3 (moderate) Current Visit: No Status: Chronic Assessment and plan: Patient for creatinine of 1.33 on admission Will give gentle IV fluids and monitor (4) Hypertension Current Visit: No Status: Chronic Assessment and plan: Continue home medications Qualifiers: Hypertension type: unspecified Qualified Code(s): I10 - Essential (primary) hypertension (5) Dementia Current Visit: No Status: Chronic Assessment and plan: Continue home medications Qualifiers: Dementia behavioral disturbance: without behavioral disturbance Qualified Code(s): F03.90 - Unspecified dementia without behavioral disturbance (6) DVT prophylaxis Current Visit: No Status: Acute Assessment and plan: Heparin subcutaneous - Time Spent With Patient Total time spent is greater than 50% in coordination of care (as documented) at patient's floor/unit and/or counseling patient: - Stroke Is the patient on any antithrombotics?: Yes
[2018-10-31] MEDS ORDERED: Naloxone 0.4 MG/ML INJ IVP PRN (15:58)
[2018-10-31] MEDS ORDERED: 0.9 % Sodium Chloride 1,000 ML IVC SCH (16:00)
[2018-10-31 17:55] LABS: Appearance of Pleural Fl Hazy (Clear)
[2018-10-31] MEDS: *HR* Heparin 5,000 UNIT/ML VIAL SQ SCH (18:46)
[2018-11-01] MEDS: Piperacillin/Tazobactam 3.375 GM in 0.9 % Sodium Chloride Mini Bag 100 ML IVPB SCH ×3 (04:43→22:15)
[2018-11-01] MEDS: *HR* Heparin 5,000 UNIT/ML VIAL SQ SCH ×2 (05:34→16:35)
[2018-11-01 06:54] LABS: Basophils # 0.1 K/mcL (0.0-0.2); Basophils % 0.4 %; Eosinophils # 0.5 K/mcL (0.0-0.6); Eosinophils % 2.4 %; Hematocrit 36.9 % (35.3-44.9); Hemoglobin 11.1 g/dL (11.5-15.4); Immature Granulocytes % 0.5 % (0-4); Lymphocytes % 16.2 %; Mean Corpuscular HGB Conc 30.1 g/dL (31.6-35.5); Mean Corpuscular Hemoglobin 28.4 pg (28.0-33.3); Mean Corpuscular Volume 94.4 fL (83.0-100.0); Mean Platelet Volume 10.7 fL (9.4-12.4); Monocytes # 2.4 K/mcL (0.0-1.3); Monocytes % 12.5 %; Neutrophils # 12.8 K/mcL (1.6-8.9); Platelet Count 295 K/mcL (140-400); Red Blood Count 3.91 M/mcL (3.82-4.97); Red Cell Distribution Width 16.3 % (11.5-14.5)
[2018-11-01 07:12] LABS: Potassium 4.3 mEq/L (3.5-5.1)
--- NOTE | 2018-11-01 13:53 | Internal Med Progress Note ---
Hospitalist Progress Note - Encounter Date of Encounter: 11/01/18 Time of Encounter: 10:00 - Subjective Interval History: H&P reviewed. Patient with history of hypertension and dementia is admitted for hypoxic respiratory failure secondary to right-sided pleural effusion likely due to PNA. Underwent thoracentesis yesterday draining 1 L of fluid. Pleural fluid analysis shows total you please cell of 1615, LDH of 184, and total protein of 4.2. White blood cell count slightly trending down on abx. No new complaints other than slightly improved dyspnea. - Exam Vitals: Temp Pulse Resp BP Pulse Ox 98.0 F 69 14 134/98 99 11/01/18 06:45 11/01/18 06:45 11/01/18 06:45 11/01/18 06:45 11/01/18 06:45 Exam: General: Alert and oriented to self, not in acute distress. Cardiovascular:Normal S1 & S2, No JVD. Pulse regular. Lungs: Decreased breath sound on right lung base Abdomen:Soft, non-tender, no rigidity. Extremities: bilateral heel ulcers, no surrounding erythema or discharges Neurological:Non-focal - Assessment and Plan (1) Acute hypoxemic respiratory failure Current Visit: Yes Status: Acute Assessment and Plan: Patient found to have acute hypoxic respiratory failure requiring supplemental O2. CXR with large R pleural effusion Also with leukocytosis. Pt likely has underlying PNA with parapneumonic effusion s/p thoracentesis. POD #1, appears to be exudative but will verify with serum LDH and total protein will continue abx, check MRSA screen legionella/strep ag sputum culture if able to expectorate follow up on blood cultures (2) Pneumonia Current Visit: Yes Status: Acute Assessment and Plan: as above (3) Acute kidney injury superimposed on chronic kidney disease Current Visit: Yes Status: Acute Assessment and Plan: likely due to poor oral intake and pneumonia improving on IVF, continue (4) Dementia Current Visit: No Status: Chronic Assessment and Plan: resume home meds once reconciled frequent reorientation to avoid delirium (5) Hypertension Current Visit: No Status: Chronic Assessment and Plan: resume home meds once reconciled (6) Decubitus ulcer, heel Current Visit: Yes Status: Chronic Assessment and Plan: chronic bilateral heel ulcer, wound care consult (7) DVT prophylaxis Current Visit: Yes Status: Acute Assessment and Plan: SQ heparin - Time Spent with Patient Total time spent is greater than 50% in coordination of care (as documented) at patient's floor/unit and/or counseling patient: 25 - 35 minutes (Discussed with patient's daughter at length) Plan of Care Discussed with: family Internal Medicine: Result - Labs CBC & Chem 7: 11/01/18 06:01 11/01/18 06:01 Labs: Short CBC 11/01/18 Range/Units 06:01 WBC 18.8 H (4.3-11.1) K/mcL Hgb 11.1 L (11.5-15.4) g/dL Hct 36.9 (35.3-44.9) % Plt Count 295 (140-400) K/mcL Neutrophils # 12.8 H (1.6-8.9) K/mcL BMP 11/01/18 06:01 Sodium 143 Potassium 4.3 Chloride 106 Carbon Dioxide 29 BUN 39 H Creatinine 1.20 Glucose 105 Calcium 9.0 - ABG Interpretation ABG results: PT/INR, D-dimer PT 11.9 Seconds (9.4-12.1) 10/31/18 09:59 - Impressions Impressions Thoracentesis 10/31/18 11:10 IMPRESSION: Successful ultrasound guided thoracentesis. D/ / Lee Ann Ventura MD / Lee Ann Ventura MD Interpreting Provider: Lee Ann Ventura MD Echocardiogram 11/01/18 07:39 Impressions: LVEF 65-70%. Mild left ventricular diastolic dysfunction. Normal right ventricular size and function. Mild tricuspid regurgitation. Mild pulmonic regurgitation. Unable to estimate RVSP due to lack of IVC visualization. Mild to moderate pulmonary hypertension. Left Ventricular Wall Motion: Rest Echo Findings All wall segments showed normal motion. Findings: Study Quality * Technically adequate exam. ECG Findings * Sinus rhythm with BBB. Left Ventricle * LVEF 65-70%. * Normal LV chamber size, wall thickness and systolic function. * Mild left ventricular diastolic dysfunction. Right Ventricle * Normal right ventricular structure and function. Left Atrium * Normal left atrial size. Right Atrium * Normal right atrial size. Interatrial Septum * Interatrial septum not well evaluated. Aortic Valve * Trileaflet aortic valve. * Moderately sclerotic aortic valve leaflets. * No aortic stenosis. * Trace aortic regurgitation. Mitral Valve * Mild mitral annular calcification * No mitral stenosis. * Trace mitral regurgitation. Tricuspid Valve * Normal tricuspid valve structure. * No tricuspid stenosis. * Mild tricuspid regurgitation. * Unable to estimate RVSP due to lack of IVC visualization. * Mild to moderate pulmonary hypertension. Pulmonic Valve * Pulmonic valve is not well visualized. * No pulmonic stenosis. * Mild pulmonic regurgitation. Aorta * Normally sized aortic root. Pericardium * The pericardium appears normal. IVC * The IVC is not well evaluated. - Stroke Is the patient on any antithrombotics?: Yes Consult Discharge Plan - Plan Referrals: Alexa Prado [employer] ADMINISTRATIVE ASSISTANT [Primary Care Provider] - (2) Pneumonia Qualifiers: Pneumonia type: due to unspecified organism Laterality: right Lung location: unspecified part of lung Qualified Code(s): J18.9 - Pneumonia, unspecified organism (4) Dementia Qualifiers: Dementia behavioral disturbance: without behavioral disturbance Qualified Code(s): F03.90 - Unspecified dementia without behavioral disturbance (5) Hypertension Qualifiers: Hypertension type: unspecified Qualified Code(s): I10 - Essential (primary) hypertension (6) Decubitus ulcer, heel Qualifiers: Pressure injury stage: stage 3 Laterality: unspecified laterality Qualified Code(s): L89.603 - Pressure ulcer of unspecified heel, stage 3
[2018-11-01] MEDS ORDERED: 0.9 % Sodium Chloride 1,000 ML IVC SCH (14:00)
[2018-11-01 14:13] LABS: Albumin 2.8 g/dL (3.5-5.7); Bilirubin,Total 0.6 mg/dL (0.3-1.0); Globulin 2.9 g/dL (2.4-3.5); Total Protein 5.7 g/dL (6.4-8.9)
[2018-11-02 04:25] LABS: Basophils % 0.3 %; Eosinophils # 0.5 K/mcL (0.0-0.6); Eosinophils % 3.2 %; Hematocrit 35.5 % (35.3-44.9); Hemoglobin 10.5 g/dL (11.5-15.4); Immature Granulocytes % 0.4 % (0-4); Lymphocytes # 2.9 K/mcL (0.6-4.6); Lymphocytes % 19.8 %; Mean Corpuscular HGB Conc 29.6 g/dL (31.6-35.5); Mean Corpuscular Hemoglobin 28.6 pg (28.0-33.3); Mean Corpuscular Volume 96.7 fL (83.0-100.0); Mean Platelet Volume 10.5 fL (9.4-12.4); Monocytes % 13.6 %; Neutrophils # 9.1 K/mcL (1.6-8.9); Platelet Count 277 K/mcL (140-400); Red Blood Count 3.67 M/mcL (3.82-4.97); Red Cell Distribution Width 16.2 % (11.5-14.5); Segmented Neutrophils % 62.7 %
[2018-11-02 04:45] LABS: Calcium 8.9 mg/dL (8.6-10.3); Magnesium 2.3 mg/dL (1.6-2.6); Potassium 4.3 mEq/L (3.5-5.1)
[2018-11-02] MEDS: Piperacillin/Tazobactam 3.375 GM in 0.9 % Sodium Chloride Mini Bag 100 ML IVPB SCH ×3 (05:27→21:24)
[2018-11-02] MEDS: *HR* Heparin 5,000 UNIT/ML VIAL SQ SCH ×2 (05:29→18:04)
[2018-11-02] MEDS ORDERED: Aminoglycoside Consult 1 EACH MC ONE (07:40)
--- NOTE | 2018-11-02 12:59 | Internal Med Progress Note ---
Hospitalist Progress Note - Encounter Date of Encounter: 11/02/18 Time of Encounter: 11:00 - Subjective Interval History: Had an episode of choking in the later afternoon, which patient's family member described as frequent events noted at the nursing facility. Pt had since then remained NPO. No fever overnight. - Exam Vitals: Temp Pulse Resp BP Pulse Ox 97.7 F 71 18 160/78 99 11/02/18 11:09 11/02/18 11:09 11/02/18 11:09 11/02/18 11:09 11/02/18 11:09 Exam: General: Alert and oriented to self, not in acute distress. Cardiovascular:Normal S1 & S2, No JVD. Pulse regular. Lungs: Decreased breath sound on right lung base Abdomen:Soft, non-tender, no rigidity. Extremities: bilateral heel ulcers, no surrounding erythema or discharges Neurological:Non-focal - Assessment and Plan (1) Acute hypoxemic respiratory failure Current Visit: Yes Status: Acute Assessment and Plan: Patient found to have acute hypoxic respiratory failure requiring supplemental O2. CXR with large R pleural effusion Also with leukocytosis. Pt likely has underlying PNA (?aspiration) with parapneumonic effusion s/p thoracentesis. POD #2, exudative by both LDH and total protein WBC downtredning. Continue zosyn, d/c Vanc as MRSA screen -ve speech eval to rule out aspiration legionella/strep ag -ve sputum culture if able to expectorate follow up on blood cultures (2) Pneumonia Current Visit: Yes Status: Acute Assessment and Plan: as above (3) Acute kidney injury superimposed on chronic kidney disease Current Visit: Yes Status: Acute Assessment and Plan: likely due to poor oral intake and pneumonia, Cr stable (4) Dementia Current Visit: No Status: Chronic Assessment and Plan: resume home meds once reconciled frequent reorientation to avoid delirium (5) Hypertension Current Visit: No Status: Chronic Assessment and Plan: resume home meds once reconciled (6) Decubitus ulcer, heel Current Visit: Yes Status: Chronic Assessment and Plan: chronic bilateral heel ulcer, wound care consult (7) DVT prophylaxis Current Visit: Yes Status: Acute Assessment and Plan: SQ heparin - Time Spent with Patient Total time spent is greater than 50% in coordination of care (as documented) at patient's floor/unit and/or counseling patient: 25 - 35 minutes Plan of Care Discussed with: patient (discussed with pt's daughter by bedside) Internal Medicine: Result - Labs CBC & Chem 7: 11/02/18 04:00 11/02/18 04:00 Labs: Short CBC 11/02/18 Range/Units 04:00 WBC 14.5 H (4.3-11.1) K/mcL Hgb 10.5 L (11.5-15.4) g/dL Hct 35.5 (35.3-44.9) % Plt Count 277 (140-400) K/mcL Neutrophils # 9.1 H (1.6-8.9) K/mcL BMP 11/01/18 11/02/18 06:01 04:00 Sodium 143 142 Potassium 4.3 4.3 Chloride 106 110 H Carbon Dioxide 29 30 H BUN 39 H 33 H Creatinine 1.20 1.25 H Glucose 105 112 H Calcium 9.0 8.9 Liver Function 11/01/18 Range/Units 06:01 Total Bilirubin 0.6 (0.3-1.0) mg/dL AST 9 L (13-39) Units/L ALT 8 (7-52) Units/L Alkaline Phosphatase 69 (34-104) Units/L Albumin 2.8 L (3.5-5.7) g/dL - ABG Interpretation ABG results: PT/INR, D-dimer PT 11.9 Seconds (9.4-12.1) 10/31/18 09:59 - Stroke Is the patient on any antithrombotics?: Yes Consult Discharge Plan - Plan Referrals: Alexa Prado BUSINESS TEACHER [Primary Care Provider] - (2) Pneumonia Qualifiers: Pneumonia type: due to unspecified organism Laterality: right Lung location: unspecified part of lung Qualified Code(s): J18.9 - Pneumonia, unspecified organism (4) Dementia Qualifiers: Dementia behavioral disturbance: without behavioral disturbance Qualified Code(s): F03.90 - Unspecified dementia without behavioral disturbance (5) Hypertension Qualifiers: Hypertension type: unspecified Qualified Code(s): I10 - Essential (primary) hypertension (6) Decubitus ulcer, heel Qualifiers: Pressure injury stage: stage 3 Laterality: unspecified laterality Qualified Code(s): L89.603 - Pressure ulcer of unspecified heel, stage 3
[2018-11-02] MEDS ORDERED: *HR* Labetalol 20 MG/4 ML SYRINGE IVP PRN (13:00)
[2018-11-03] MEDS: Piperacillin/Tazobactam 3.375 GM in 0.9 % Sodium Chloride Mini Bag 100 ML IVPB SCH ×3 (03:38→21:05)
[2018-11-03] MEDS: *HR* Heparin 5,000 UNIT/ML VIAL SQ SCH ×2 (04:51→17:38)
[2018-11-03 04:55] LABS: Basophils % 0.4 %; Hemoglobin 11.3 g/dL (11.5-15.4); Immature Granulocytes % 0.5 % (0-4); Monocytes % 12.6 %
[2018-11-03 04:56] LABS: Basophils # 0.1 K/mcL (0.0-0.2); Eosinophils # 0.4 K/mcL (0.0-0.6); Eosinophils % 2.7 %; Hematocrit 38.2 % (35.3-44.9); Lymphocytes # 2.7 K/mcL (0.6-4.6); Lymphocytes % 17.9 %; Mean Corpuscular HGB Conc 29.6 g/dL (31.6-35.5); Mean Corpuscular Hemoglobin 28.4 pg (28.0-33.3); Mean Platelet Volume 10.3 fL (9.4-12.4); Monocytes # 1.9 K/mcL (0.0-1.3); Neutrophils # 9.9 K/mcL (1.6-8.9); Platelet Count 284 K/mcL (140-400); Red Blood Count 3.98 M/mcL (3.82-4.97); Red Cell Distribution Width 16.3 % (11.5-14.5); Segmented Neutrophils % 65.9 %
[2018-11-03 05:07] LABS: Calcium 9.4 mg/dL (8.6-10.3); Potassium 4.5 mEq/L (3.5-5.1)
[2018-11-03 05:25] LABS: Hypochromasia Present (Not Present); Platelet Estimate Normal (Normal)
[2018-11-03] MEDS ORDERED: Aspirin Enteric Coated 325 MG Tablet PO SCH ×2 (09:00)
[2018-11-03] MEDS: Aspirin Enteric Coated 81 MG Tablet PO SCH (10:55)
[2018-11-03] MEDS: Loratadine 10 MG TABLET PO SCH (10:55)
--- NOTE | 2018-11-03 12:26 | Internal Med Progress Note ---
Hospitalist Progress Note - Encounter Date of Encounter: 11/03/18 Time of Encounter: 10:00 - Subjective Interval History: No new events overnight. Patient passed swallow evaluation was restarted on nectar thickened diet. Breathing is not labored according to the patient. No fever overnight. - Exam Vitals: Temp Pulse Resp BP Pulse Ox 97.7 F 71 16 150/74 97 11/03/18 07:06 11/03/18 07:06 11/03/18 07:06 11/03/18 07:06 11/03/18 07:06 Exam: General: Alert and oriented to self, not in acute distress. Cardiovascular:Normal S1 & S2, No JVD. Pulse regular. Lungs: Decreased breath sound on right lung base Abdomen:Soft, non-tender, no rigidity. Extremities: bilateral heel ulcers, no surrounding erythema or discharges Neurological:Non-focal - Assessment and Plan (1) Acute hypoxemic respiratory failure Current Visit: Yes Status: Acute Assessment and Plan: Patient found to have acute hypoxic respiratory failure requiring supplemental O2. CXR with large R pleural effusion Also with leukocytosis. Pt likely has underlying PNA (?aspiration) with parapneu mark effusion s/p thoracentesis removing 1L of fluid. POD #3, exudative in nature WBC unchanged today but pt reports mild improvement in her symptoms. Continue zosyn, Vanc d/alysha as MRSA screen -ve speech eval did not show any overt aspiration legionella/strep ag -ve sputum culture no growth at 48 hours, blood cultures NGTD will attempt to wean O2 today, if unable to be weaned off O2 (and if she has persistent leukocytosis), would consider CT chest and possibly repeating thoracentesis as she had moderate amount of effusion after the 1st thoracentesis (2) Pneumonia Current Visit: Yes Status: Acute Assessment and Plan: as above (3) Acute kidney injury superimposed on chronic kidney disease Current Visit: Yes Status: Acute Assessment and Plan: likely due to poor oral intake and pneumonia, Cr stable diet resumed as above (4) Dementia Current Visit: No Status: Chronic Assessment and Plan: resume home meds frequent reorientation to avoid delirium (5) Hypertension Current Visit: No Status: Chronic Assessment and Plan: resume home meds PRN labetalol (6) Decubitus ulcer, heel Current Visit: Yes Status: Chronic Assessment and Plan: chronic bilateral heel ulcer, wound care consult (7) DVT prophylaxis Current Visit: Yes Status: Acute Assessment and Plan: SQ heparin - Time Spent with Patient Total time spent is greater than 50% in coordination of care (as documented) at patient's floor/unit and/or counseling patient: 25 - 35 minutes Plan of Care Discussed with: patient (discussed with pt's at bedside) Internal Medicine: Result - Labs CBC & Chem 7: 11/03/18 04:36 11/03/18 04:36 Labs: Short CBC 11/03/18 Range/Units 04:36 WBC 15.0 H (4.3-11.1) K/mcL Hgb 11.3 L (11.5-15.4) g/dL Hct 38.2 (35.3-44.9) % Plt Count 284 (140-400) K/mcL Neutrophils # 9.9 H (1.6-8.9) K/mcL BMP 11/03/18 04:36 Sodium 144 Potassium 4.5 Chloride 112 H Carbon Dioxide 29 BUN 28 H Creatinine 1.11 Glucose 116 H Calcium 9.4 - ABG Interpretation ABG results: PT/INR, D-dimer PT 11.9 Seconds (9.4-12.1) 10/31/18 09:59 - Stroke Is the patient on any antithrombotics?: Yes Consult Discharge Plan - Plan Referrals: Alexa Prado CNP [Primary Care Provider] - (2) Pneumonia Qualifiers: Pneumonia type: due to unspecified organism Laterality: right Lung location: unspecified part of lung Qualified Code(s): J18.9 - Pneumonia, unspecified organism (4) Dementia Qualifiers: Dementia behavioral disturbance: without behavioral disturbance Qualified Code(s): F03.90 - Unspecified dementia without behavioral disturbance (5) Hypertension Qualifiers: Hypertension type: unspecified Qualified Code(s): I10 - Essential (primary) hypertension (6) Decubitus ulcer, heel Qualifiers: Pressure injury stage: stage 3 Laterality: unspecified laterality Qualified Code(s): L89.603 - Pressure ulcer of unspecified heel, stage 3
[2018-11-03] MEDS ORDERED: *HR* Acetaminophen w/Cod 300-30 mg 1 TAB TABLET PO PRN (12:28)
[2018-11-03] MEDS ORDERED: Mirtazapine 15 MG TABLET PO SCH (21:00)
[2018-11-04] MEDS: Piperacillin/Tazobactam 3.375 GM in 0.9 % Sodium Chloride Mini Bag 100 ML IVPB SCH ×3 (03:53→20:36)
--- NOTE | 2018-11-04 03:54 | Event Note ---
Date of Encounter: 11/04/18 Time of Encounter: 03:30 Paged by nursing that the patient appeared very agitated and was asked if I can give her an IV anxiolytic. I declined that order and she did not receive any anxiolytic. I went to see the patient and she was resting in bedside chair. Nursing reported she had episodes of desaturation with 2 L of oxygen to 87%. Upon auscultation there is decreased breath sounds noted in right lower lung lobe. She did recently have a thoracentesis due to parapneumonic effusion of the right pleural space. After chart review it was noted that she received her home mirtazapine tonight which she had not received the past 3 days and could be contributing to her agitated mentation. She is awake, alert oriented 3. Chest x-ray is ordered to evaluate decreased lungs sounds and episodes of desaturation. Also recommended to not continue mirtazapine during her stay as it might be contributing to her agitation.
[2018-11-04] MEDS: *HR* Heparin 5,000 UNIT/ML VIAL SQ SCH ×2 (05:51→17:40)
[2018-11-04 09:01] LABS: Basophils % 0.4 %; Red Cell Distribution Width 16.4 % (11.5-14.5)
[2018-11-04 09:02] LABS: Basophils # 0.1 K/mcL (0.0-0.2); Eosinophils # 0.2 K/mcL (0.0-0.6); Eosinophils % 1.5 %; Hematocrit 41.2 % (35.3-44.9); Hemoglobin 12.1 g/dL (11.5-15.4); Immature Granulocytes % 0.5 % (0-4); Lymphocytes # 2.3 K/mcL (0.6-4.6); Lymphocytes % 17.1 %; Mean Corpuscular HGB Conc 29.4 g/dL (31.6-35.5); Mean Corpuscular Hemoglobin 28.7 pg (28.0-33.3); Mean Corpuscular Volume 97.9 fL (83.0-100.0); Mean Platelet Volume 10.5 fL (9.4-12.4); Monocytes # 1.6 K/mcL (0.0-1.3); Monocytes % 11.9 %; Platelet Count 283 K/mcL (140-400); Red Blood Count 4.21 M/mcL (3.82-4.97); Segmented Neutrophils % 68.6 %
[2018-11-04 09:03] LABS: Neutrophils # 9.3 K/mcL (1.6-8.9)
[2018-11-04 09:14] LABS: Calcium 9.7 mg/dL (8.6-10.3); Potassium 4.6 mEq/L (3.5-5.1)
[2018-11-04 09:20] LABS: Platelet Estimate Normal (Normal)
[2018-11-04] MEDS: Loratadine 10 MG TABLET PO SCH (10:08)
[2018-11-04] MEDS: Aspirin Enteric Coated 81 MG Tablet PO SCH (10:15)
--- NOTE | 2018-11-04 10:28 | Internal Med Progress Note ---
Hospitalist Progress Note - Encounter Date of Encounter: 11/04/18 Time of Encounter: 08:00 - Subjective Interval History: It appears that pt had an episode of agitation overnight. Repeat CXR showed persistent mod R pleural effusion that may even be slightly larger. Pt however denies any worsening SOB or sputum production. No fever overnight. - Exam Vitals: Temp Pulse Resp BP Pulse Ox 97.7 F 66 15 131/71 92 11/04/18 10:14 11/04/18 10:14 11/04/18 10:14 11/04/18 10:14 11/04/18 10:14 Exam: General: Alert and oriented to self, not in acute distress. Cardiovascular:Normal S1 & S2, No JVD. Pulse regular. Lungs: Decreased breath sound on right lung base Abdomen:Soft, non-tender, no rigidity. Extremities: bilateral heel ulcers, no surrounding erythema or discharges Neurological:Non-focal - Assessment and Plan (1) Acute hypoxemic respiratory failure Current Visit: Yes Status: Acute Assessment and Plan: Patient found to have acute hypoxic respiratory failure requiring supplemental O2. CXR with large R pleural effusion Also with leukocytosis. Pt likely has underlying PNA (?aspiration) with parapneumonic effusion s/p thoracentesis removing 1L of fluid. POD #4, exudative in nature speech eval did not show any overt aspiration legionella/strep ag -ve sputum culture no growth at 48 hours, blood cultures NGTD WBC persistently elevated, unable to wean off O2, and CXR shows persistent (if not worse) moderate R pleural effusion. Will obtain CT chest ?empyema, ?septated effusion continue zosyn D5 today (2) Pneumonia Current Visit: Yes Status: Acute Assessment and Plan: as above (3) Acute kidney injury superimposed on chronic kidney disease Current Visit: Yes Status: Resolved Assessment and Plan: likely due to poor oral intake and pneumonia, Cr stable diet resumed as above (4) Dementia Current Visit: No Status: Chronic Assessment and Plan: resume home meds but hold Remeron frequent reorientation to avoid delirium (5) Hypertension Current Visit: No Status: Chronic Assessment and Plan: resume home meds PRN labetalol (6) Decubitus ulcer, heel Current Visit: Yes Status: Chronic Assessment and Plan: chronic bilateral heel ulcer, follow with wound care (7) DVT prophylaxis Current Visit: Yes Status: Acute Assessment and Plan: SQ heparin - Time Spent with Patient Total time spent is greater than 50% in coordination of care (as documented) at patient's floor/unit and/or counseling patient: Greater than 35 minutes Plan of Care Discussed with: nurse Internal Medicine: Result - Labs CBC & Chem 7: 11/04/18 08:20 11/04/18 08:20 Labs: Short CBC 11/04/18 Range/Units 08:20 WBC 13.6 H (4.3-11.1) K/mcL Hgb 12.1 (11.5-15.4) g/dL Hct 41.2 (35.3-44.9) % Plt Count 283 (140-400) K/mcL Neutrophils # 9.3 H (1.6-8.9) K/mcL BMP 11/04/18 08:20 Sodium 143 Potassium 4.6 Chloride 111 H Carbon Dioxide 28 BUN 25 H Creatinine 1.12 Glucose 112 H Calcium 9.7 - ABG Interpretation ABG results: PT/INR, D-dimer PT 11.9 Seconds (9.4-12.1) 10/31/18 09:59 - Impressions Impressions Chest X-Ray 11/04/18 03:48 IMPRESSION: 1. Stable mild-moderate bilateral pleural effusions and basilar consolidation. 2. No pneumothorax. D/ / George Sousa MD / George Sousa MD Interpreting Provider: George Sousa MD - Stroke Is the patient on any antithrombotics?: Yes Consult Discharge Plan - Plan Referrals: Alexa Prado CNP [Primary Care Provider] - (2) Pneumonia Qualifiers: Pneumonia type: due to unspecified organism Laterality: right Lung location: unspecified part of lung Qualified Code(s): J18.9 - Pneumonia, unspecified organism (4) Dementia Qualifiers: Dementia behavioral disturbance: without behavioral disturbance Qualified Code(s): F03.90 - Unspecified dementia without behavioral disturbance (5) Hypertension Qualifiers: Hypertension type: unspecified Qualified Code(s): I10 - Essential (primary) hypertension (6) Decubitus ulcer, heel Qualifiers: Pressure injury stage: stage 3 Laterality: unspecified laterality Qualified Code(s): L89.603 - Pressure ulcer of unspecified heel, stage 3
[2018-11-04 20:07] LABS: RBC,Pleural Fluid < 0.002 M/mcL
[2018-11-04 20:09] LABS: Total Protein,Pleural Fluid 3.5 g/dL (No Ref Range)
[2018-11-04 22:09] LABS: Appearance of Pleural Fl Clear (Clear)
[2018-11-05] MEDS: Piperacillin/Tazobactam 3.375 GM in 0.9 % Sodium Chloride Mini Bag 100 ML IVPB SCH ×3 (03:58→20:58)
[2018-11-05] MEDS: *HR* Heparin 5,000 UNIT/ML VIAL SQ SCH ×2 (05:30→17:33)
[2018-11-05 05:48] LABS: Calcium 9.9 mg/dL (8.6-10.3); Magnesium 2.2 mg/dL (1.6-2.6); Potassium 4.6 mEq/L (3.5-5.1)
[2018-11-05 08:39] LABS: Basophils # 0.1 K/mcL (0.0-0.2); Basophils % 0.4 %; Eosinophils # 0.5 K/mcL (0.0-0.6); Eosinophils % 2.4 %; Hematocrit 42.2 % (35.3-44.9); Hemoglobin 12.3 g/dL (11.5-15.4); Immature Granulocytes % 0.4 % (0-4); Lymphocytes % 15.6 %; Mean Corpuscular HGB Conc 29.1 g/dL (31.6-35.5); Mean Corpuscular Hemoglobin 28.9 pg (28.0-33.3); Mean Corpuscular Volume 99.3 fL (83.0-100.0); Mean Platelet Volume 11.1 fL (9.4-12.4); Monocytes # 2.2 K/mcL (0.0-1.3); Monocytes % 11.2 %; Neutrophils # 13.7 K/mcL (1.6-8.9); Platelet Count 307 K/mcL (140-400); Red Blood Count 4.25 M/mcL (3.82-4.97); Red Cell Distribution Width 16.5 % (11.5-14.5)
[2018-11-05] MEDS: Aspirin Enteric Coated 81 MG Tablet PO SCH (08:53)
[2018-11-05] MEDS: Loratadine 10 MG TABLET PO SCH (08:53)
--- NOTE | 2018-11-05 12:43 | Internal Med Progress Note ---
Hospitalist Progress Note - Encounter Date of Encounter: 11/05/18 Time of Encounter: 12:41 - Subjective Interval History: Patient seen and examined at bedside. Patient is sitting in the chair. She will respond minimally to verbal stimuli but does not answer questions appropriately. Per the daughter this is her baseline. Does not appear to be in any distress. - Exam Vitals: Temp Pulse Resp BP Pulse Ox 97.9 F 60 16 173/81 100 11/05/18 10:52 11/05/18 10:52 11/05/18 10:52 11/05/18 10:52 11/05/18 10:52 Exam: Gen.: Alert and oriented 0, no acute distress Heart: Regular rate and rhythm, no murmurs, rubs, gallops Lungs: Diminished bilaterally, no rales, rhonchi, wheezes - Assessment and Plan (1) Acute hypoxemic respiratory failure Current Visit: Yes Status: Acute Assessment and Plan: Secondary to pneumonia and parapneumonic effusion. Patient has difficulty positioning herself to optimize her oxygenation and is still requiring oxygen. Given her effusion and pneumonia she will likely require oxygen at discharge. We will continue to wean down as tolerated to maintain oxygen saturation greater than 90%. (2) Pneumonia Current Visit: Yes Status: Acute Assessment and Plan: Patient has evidence of pneumonia with parapneumonic effusion. Given her underlying dementia and speech therapy evaluation this is likely secondary to aspiration pneumonia. Overall appears improving but she did have an increase in her leukocytosis today. However she has remained afebrile. Worsening leukocytosis may be secondary to procedure performed yesterday. Overall clinically she appears to be improving. Continue Zosyn for now, transitioned to Augmentin at discharge. Recheck CBC in the morning. (3) Dementia Current Visit: No Status: Chronic Assessment and Plan: Chronic for patient. Appears to be at baseline. Continue Aricept (4) Hypertension Current Visit: No Status: Chronic Assessment and Plan: Blood pressure mildly elevated. Restart home hydrochlorothiazide. Continue beta salma. Continue monitor and adjust as necessary. (5) Acute kidney injury superimposed on chronic kidney disease Current Visit: Yes Status: Resolved Assessment and Plan: Acute kidney injury has resolved. Patient has chronic kidney disease stage III. Creatinine appears to be at baseline. Good urine output. Continue to monitor renal function. (6) Decubitus ulcer, heel Current Visit: Yes Status: Chronic Assessment and Plan: Present on admission. Continue wound care daily. (7) DVT prophylaxis Current Visit: Yes Status: Acute Assessment and Plan: Heparin 5000 units subcutaneous twice a day - Time Spent with Patient Total time spent is greater than 50% in coordination of care (as documented) at patient's floor/unit and/or counseling patient: Internal Medicine: Result - Labs CBC & Chem 7: 11/05/18 04:27 11/05/18 04:27 Labs: Short CBC 11/05/18 Range/Units 04:27 WBC 19.5 H (4.3-11.1) K/mcL Hgb 12.3 (11.5-15.4) g/dL Hct 42.2 (35.3-44.9) % Plt Count 307 (140-400) K/mcL Neutrophils # 13.7 H (1.6-8.9) K/mcL BMP 11/05/18 04:27 Sodium 145 Potassium 4.6 Chloride 110 H Carbon Dioxide 29 BUN 26 H Creatinine 1.14 Glucose 109 H Calcium 9.9 - ABG Interpretation ABG results: PT/INR, D-dimer PT 11.9 Seconds (9.4-12.1) 10/31/18 09:59 - Impressions Impressions Thoracentesis 11/04/18 12:58 IMPRESSION: Successful ultrasound guided thoracentesis. D/ / Jh Kirkland MD / Jh Kirkland MD Interpreting Provider: Jh Kirkland MD Chest X-Ray 11/04/18 15:46 IMPRESSION: No pneumothorax following thoracentesis. D/ / Joao Davis MD / Joao Davis MD Interpreting Provider: Joao Davis MD - Stroke Is the patient on any antithrombotics?: Yes Consult Discharge Plan - Plan Referrals: Alexa Prado LINER CHECKER [Primary Care Provider] - (2) Pneumonia Qualifiers: Pneumonia type: aspiration pneumonia Aspiration pneumonia type: unspecified Laterality: right Lung location: unspecified part of lung Qualified Code(s): J69.0 - Pneumonitis due to inhalation of food and vomit (3) Dementia Qualifiers: Dementia behavioral disturbance: without behavioral disturbance Qualified Co de(s): F03.90 - Unspecified dementia without behavioral disturbance (4) Hypertension Qualifiers: Hypertension type: unspecified Qualified Code(s): I10 - Essential (primary) hypertension (6) Decubitus ulcer, heel Qualifiers: Pressure injury stage: stage 3 Laterality: unspecified laterality Qualified Code(s): L89.603 - Pressure ulcer of unspecified heel, stage 3
[2018-11-05 17:17] LABS: C.difficile Toxin A/B Gene PCR Not detected (Not detect); Campylobacter by PCR Not detected (Not detect); Plesiomonas shigelloides PCR Not detected (Not detect); Salmonella PCR Not detected (Not detect); Vibrio PCR Not detected (Not detect); Yersinia enterocolitica PCR DETECTED (Not detect)
[2018-11-05 17:18] LABS: Adenovirus F 40/41 PCR Not detected (Not detect); Astrovirus PCR Not detected (Not detect); Cryptosporidium by PCR Not detected (Not detect); Cyclospora cayetanensis PCR Not detected (Not detect); E. coli O157 by PCR Not detected (Not detect); Entamoeba histolytica PCR Not detected (Not detect); Enteroaggregative E.coli(EAEC) Not detected (Not detect); Enteropathogenic E.coli(EPEC) Not detected (Not detect); Enterotoxigenic E.coli (ETEC) Not detected (Not detect); Giardia lamblia PCR Not detected (Not detect); Norovirus GI/GII PCR Not detected (Not detect); Rotavirus A PCR Not detected (Not detect); Sapovirus PCR Not detected (Not detect); Shig/EnteroinvasiveE coli EIEC Not detected (Not detect); Shigalike tox-prod E coli STEC Not detected (Not detect); Vibrio cholerae PCR Not detected (Not detect)
[2018-11-05] MEDS ORDERED: ALPRAZolam 0.25 MG TABLET PO ONE (23:27)
[2018-11-06] MEDS: Piperacillin/Tazobactam 3.375 GM in 0.9 % Sodium Chloride Mini Bag 100 ML IVPB SCH ×3 (04:45→22:27)
[2018-11-06] MEDS: *HR* Heparin 5,000 UNIT/ML VIAL SQ SCH ×2 (04:53→16:42)
[2018-11-06 05:39] LABS: Basophils # 0.1 K/mcL (0.0-0.2); Basophils % 0.4 %; Eosinophils # 0.7 K/mcL (0.0-0.6); Eosinophils % 4.8 %; Hematocrit 38.9 % (35.3-44.9); Hemoglobin 11.3 g/dL (11.5-15.4); Immature Granulocytes % 0.5 % (0-4); Lymphocytes # 3.2 K/mcL (0.6-4.6); Lymphocytes % 21.9 %; Mean Corpuscular Hemoglobin 28.3 pg (28.0-33.3); Mean Corpuscular Volume 97.3 fL (83.0-100.0); Mean Platelet Volume 10.9 fL (9.4-12.4); Monocytes # 1.7 K/mcL (0.0-1.3); Monocytes % 11.5 %; Neutrophils # 8.9 K/mcL (1.6-8.9); Platelet Count 265 K/mcL (140-400); Red Cell Distribution Width 16.2 % (11.5-14.5); Segmented Neutrophils % 60.9 %
[2018-11-06 05:59] LABS: BUN/Creatinine Ratio 19 (6-26); Blood Urea Nitrogen 19 mg/dL (8-23); Calcium 9.3 mg/dL (8.6-10.3); Carbon Dioxide 29 mEq/L (23-29); Chloride 111 mEq/L (98-107); Glucose 95 mg/dL (70-105); Magnesium 2.1 mg/dL (1.6-2.6); Osmolality,Calculated 298 (280-300); Potassium 4.3 mEq/L (3.5-5.1); Sodium 143 mEq/L (136-145); eGFR For Non-African Americans 52 (> 60)
[2018-11-06] MEDS: hydroCHLOROthiazide 25 MG TABLET PO SCH (08:09)
[2018-11-06] MEDS: Loratadine 10 MG TABLET PO SCH (08:09)
[2018-11-06] MEDS: Aspirin Enteric Coated 81 MG Tablet PO SCH (08:09)
--- NOTE | 2018-11-06 14:59 | Internal Med Progress Note ---
Hospitalist Progress Note - Encounter Date of Encounter: 11/06/18 Time of Encounter: 14:53 - Subjective Interval History: Patient seen and examined at bedside. Patient much more awake and alert. She states she feels pretty good today. Denies diarrhea, chest pain, shortness of breath. - Exam Vitals: Temp Pulse Resp BP Pulse Ox 98.2 F 54 16 137/74 95 11/06/18 10:46 11/06/18 10:46 11/06/18 10:46 11/06/18 10:46 11/06/18 10:46 Exam: Gen.: Alert and oriented 3, no acute distress Heart: Regular rate and rhythm, no murmurs, rubs, gallops Lungs: Diminished bilaterally, no rales, rhonchi, wheezes - Assessment and Plan (1) Acute hypoxemic respiratory failure Current Visit: Yes Status: Acute Assessment and Plan: Secondary to pneumonia and parapneumonic effusion. Oxygen requirements are lessening. We will continue to wean down as tolerated to maintain oxygen saturation greater than 90%. Awaiting precertification to return to ECF. (2) Pneumonia Current Visit: Yes Status: Acute Assessment and Plan: Patient has evidence of pneumonia with parapneumonic effusion. Given her underlying dementia and speech therapy evaluation this is likely secondary to aspiration pneumonia. Leukocytosis improved Overall clinically she appears to be improving. Continue Zosyn for now, transitioned to Augmentin at discharge. (3) Dementia Current Visit: No Status: Chronic Assessment and Plan: Chronic for patient. Appears to be at baseline. Continue Aricept (4) Hypertension Current Visit: No Status: Chronic Assessment and Plan: Blood pressure mildly elevated. Restart home hydrochlorothiazide. Continue beta salma. Continue monitor and adjust as necessary. (5) Acute kidney injury superimposed on chronic kidney disease Current Visit: Yes Status: Resolved Assessment and Plan: Acute kidney injury has resolved. Patient has chronic kidney disease stage III. Creatinine appears to be at baseline. Good urine output. Continue to monitor renal function. (6) Decubitus ulcer, heel Current Visit: Yes Status: Chronic Assessment and Plan: Present on admission. Continue wound care daily. (7) DVT prophylaxis Current Visit: Yes Status: Acute Assessment and Plan: Heparin 5000 units subcutaneous twice a day - Time Spent with Patient Total time spent is greater than 50% in coordination of care (as documented) at patient's floor/unit and/or counseling patient: Internal Medicine: Result - Labs CBC & Chem 7: 11/06/18 04:33 11/06/18 04:33 Labs: Short CBC 11/06/18 Range/Units 04:33 WBC 14.7 H (4.3-11.1) K/mcL Hgb 11.3 L (11.5-15.4) g/dL Hct 38.9 (35.3-44.9) % Plt Count 265 (140-400) K/mcL Neutrophils # 8.9 (1.6-8.9) K/mcL BMP 11/06/18 04:33 Sodium 143 Potassium 4.3 Chloride 111 H Carbon Dioxide 29 BUN 19 Creatinine 1.01 Glucose 95 Calcium 9.3 - ABG Interpretation ABG results: PT/INR, D-dimer PT 11.9 Seconds (9.4-12.1) 10/31/18 09:59 - Stroke Is the patient on any antithrombotics?: No Are there any contradictions to antithrombotics?: No Consult Discharge Plan - Plan Referrals: Alexa Prado [employer]OT[employer] ENGINEERING TECHNICIAN [Primary Care Provider] - (2) Pneumonia Qualifiers: Pneumonia type: aspiration pneumonia Aspiration pneumonia type: unspecified Laterality: right Lung location: unspecified part of lung Qualified Code(s): J69.0 - Pneumonitis due to inhalation of food and vomit (3) Dementia Qualifiers: Dementia behavioral disturbance: without behavioral disturbance Qualified Code(s): F03.90 - Unspecified dementia without behavioral disturbance (4) Hypertension Qualifiers: Hypertension type: unspecified Qualified Code(s): I10 - Essential (primary) hypertension (6) Decubitus ulcer, heel Qualifiers: Pressure injury stage: stage 3 Laterality: unspecified laterality Qualified Code(s): L89.603 - Pressure ulcer of unspecified heel, stage 3
[2018-11-07] MEDS: Piperacillin/Tazobactam 3.375 GM in 0.9 % Sodium Chloride Mini Bag 100 ML IVPB SCH (04:52)
[2018-11-07] MEDS: *HR* Heparin 5,000 UNIT/ML VIAL SQ SCH (05:56)
[2018-11-07] MEDS ORDERED: Amoxicillin/Clavulanate 500 MG TABLET PO SCH (08:00)
[2018-11-07] MEDS: hydroCHLOROthiazide 25 MG TABLET PO SCH (09:09)
[2018-11-07] MEDS: Loratadine 10 MG TABLET PO SCH (09:09)
[2018-11-07] MEDS: Aspirin Enteric Coated 81 MG Tablet PO SCH (09:09)
--- NOTE | 2018-11-07 10:26 | Discharge Summary ---
Orders not resulted at time of discharge: Pending orders 10/31/18 16:03 Respiratory Infection Panel [MOLMIC] Routine 11/04/18 15:30 Culture,Body Fluid [RM] Routine Date of Encounter: 11/07/18 Time of Encounter: 10:23 - Discharge Diagnosis (1) Acute hypoxemic respiratory failure Priority: Primary Status: Acute (2) Pneumonia Priority: Primary Status: Acute Qualifiers: Pneumonia type: aspiration pneumonia Aspiration pneumonia type: unspecified Laterality: right Lung location: unspecified part of lung Qualified Code(s): J69.0 - Pneumonitis due to inhalation of food and vomit (3) Dementia Priority: Secondary Status: Chronic Qualifiers: Dementia behavioral disturbance: without behavioral disturbance Qualified Code(s): F03.90 - Unspecified dementia without behavioral disturbance (4) Hypertension Priority: Secondary Status: Chronic Qualifiers: Hypertension type: unspecified Qualified Code(s): I10 - Essential (primary) hypertension (5) Acute kidney injury superimposed on chronic kidney disease Priority: Secondary Status: Resolved (6) Decubitus ulcer, heel Priority: Secondary Status: Chronic Qualifiers: Pressure injury stage: stage 3 Laterality: unspecified laterality Qualified Code(s): L89.603 - Pressure ulcer of unspecified heel, stage 3 Hospital course: Ms. Byrnes is a 88 year old female with history of dementia, hypertension presents with shortness of breath and cough. She is found to have pleural effusion with pneumonia, likely parapneumonic effusion. Pneumonia was likely caused by aspiration. Patient was placed on Zosyn and she recovered well. She was transitioned to Augmentin on the day of discharge to complete 8 days of therapy. Patient did have recurrence of her pleural effusion require repeat thoracentesis. Cervix patient has remained stable while awaiting precertification. Patient [facility] be [facility] to [facility] in stable condition. Discharge discussed with: patient, family, social work, case management - Time Spent with Patient Total time spent providing and/or coordinating discharge services: Time spent: Greater than 30 minutes (45 minutes) - Discharge Medications Prescriptions: New RX: Amoxicillin/Clavulanate [Augmentin] 500 mg PO BIDWM #1 tablet Continue RX: Metoprolol [Lopressor] 25 mg PO BID RX: Donepezil [Aricept] 10 mg PO HS RX: Docusate [Colace] 100 mg PO DAILY RX: Albuterol Sulfate [Proair Hfa] 2 puff IH Q6H PRN PRN Reason: Dyspnea RX: Fexofenadine HCl [Allergy Relief] 180 mg PO DAILY RX: Hydrochlorothiazide [Microzide] 12.5 mg PO DAILY RX: Cholecalciferol (D-3) [Vitamin D] 1,000 unit PO DAILY #60 tablet RX: Aspirin Enteric Coated [Aspirin EC] 81 mg PO DAILY RX: Vit C/Vit E/Lutein/Min/[place]-3 [Ocuvite Softgel] 1 tab PO DAILY RX: Acetaminophen [Tylenol] 1,000 mg PO Q8H PRN PRN Reason: Fever/Pain RX: Atorvastatin [Lipitor] 40 mg PO DAILY RX: Calcium Carbonate/Vitamin D3 [Calcium 600-Vit D3 200 Tablet] 1 tab PO DAILY RX: Collagenase Oint [Santyl] 1 appl TP DAILY RX: Magnesium Hydroxide [Milk of Magnesia] 2,400 mg PO DAILY PRN PRN Reason: Constipation RX: Mirtazapine 7.5 mg PO DAILY RX: Multivitamin [One Daily Essential] 1 tab PO DAILY RX: Ondansetron HCl 8 mg PO Q8H PRN PRN Reason: NAUSEA/VOMITING RX: Acetaminophen w/Cod 300-30 mg [Tylenol w/Codeine #3] 1 tab PO Q6H PRN 3 Days #10 tablet PRN Reason: Pain Home Medications: Metoprolol [Lopressor] 25 mg PO BID 10/31/15 [History] Donepezil [Aricept] 10 mg PO HS 06/05/17 [History] Docusate [Colace] 100 mg PO DAILY 10/07/17 [History] Albuterol Sulfate [Proair Hfa] 2 puff IH Q6H PRN 07/22/18 [History] Fexofenadine HCl [Allergy Relief] 180 mg PO DAILY 07/22/18 [History] Hydrochlorothiazide [Microzide] 12.5 mg PO DAILY 07/22/18 [History] Cholecalciferol (D-3) [Vitamin D] 1,000 unit PO DAILY #60 tablet 07/29/18 [Rx] Aspirin Enteric Coated [Aspirin EC] 81 mg PO DAILY 11/02/18 [History] Vit C/Vit E/Lutein/Min/[place]-3 [Ocuvite Softgel] 1 tab PO DAILY 11/02/18 [History] Acetaminophen [Tylenol] 1,000 mg PO Q8H PRN 11/03/18 [History] Atorvastatin [Lipitor] 40 mg PO DAILY 11/03/18 [History] Calcium Carbonate/Vitamin D3 [Calcium 600-Vit D3 200 Tablet] 1 tab PO DAILY 11/03/18 [History] Collagenase Oint [Santyl] 1 appl TP DAILY 11/03/18 [History] Magnesium Hydroxide [Milk of Magnesia] 2,400 mg PO DAILY PRN 11/03/18 [History] Mirtazapine 7.5 mg PO DAILY 11/03/18 [History] Multivitamin [One Daily Essential] 1 tab PO DAILY 11/03/18 [History] Ondansetron HCl 8 mg PO Q8H PRN 11/03/18 [History] Acetaminophen w/Cod 300-30 mg [Tylenol w/Codeine #3] 1 tab PO Q6H PRN 3 Days #10 tablet 11/07/18 [Rx] Amoxicillin/Clavulanate [Augmentin] 500 mg PO BIDWM #1 tablet 11/07/18 [Rx] Allergies/Adverse Reactions: Allergy/AdvReac Type Severity Reaction Status Date / Time Cyproheptadine Allergy Rash Verified 10/07/17 16:35 [From Periactin] Erythromycin Base Allergy Rash Verified 10/07/17 16:35 [From Ilosone] NSAIDS (Non-Steroidal Allergy Rash Verified 10/07/17 16:35 Anti-Inflamma nutri sweet Allergy Rash Uncoded 10/07/17 16:35 Date of admission: 10/31/18 18:28 Primary care physician: Alexa Prado CNP Consults: 10/31/18 15:32 Consult to Wound Care [CONS] Routine Reason for Consult: Bilateral heel wounds Call Completed: Yes 11/01/18 11:51 Consult to Occupational Therapy [CONS] Routine Comment: Evaluate, develop and implement POC Reason for Consult: Needs for re-cert to return to ECF Does patient have active BEDREST order?: No Is patient medically & hemodynamically stable?: Yes Consult to Physical Therapy [CONS] Routine Comment: Evaluate, develop and implement POC Reason for Consult: Needs re-cert to return to ECF Does patient have active BEDREST order?: No Is patient medically & hemodynamically stable?: Yes 11/06/18 08:00 Consult to Nurse Navigator [CONS] Routine Comment: pn Discharging clinician: Dileep Frias Anticipated date of discharge: 11/07/18 - Constitutional Vitals: Temp Pulse Resp BP Pulse Ox 98.1 F 73 14 169/77 95 11/07/18 07:50 11/07/18 07:50 11/07/18 07:50 11/07/18 07:50 11/07/18 09:19 General appearance: Present: A&O X 3 Exam: . - Respiratory Respiratory exam: Present: decreased breath sounds. Absent: rales, rhonchi, wheezes - Cardiovascular Cardiovascular exam: Present: RRR. Absent: gallop, rubs, systolic murmur - Patient Status Disposition: Transfer SNF Condition: Fair Functional capacity at discharge: bed bound Overall status at discharge: patient is progressing back to baseline - Discharge Instructions Follow Up With: Alexa Prado CNP [Primary Care Provider] - ([facility]) Additional Instructions: Please follow-up with your primary care provider Please complete your antibiotic today. Please resume home medications. Please return for any new or worsening symptoms. - Diet and Activity Activity: wear oxygen at all times Diet: advance to your usual diet - Stroke Is the patient on any antithrombotics?: Yes
--- NOTE | 2018-11-07 10:29 | Physician Discharge Referral ---
ExtendedCare Referral Info Provider in Charge after Transfer: PCP Institutional Level of Care: Skilled - Diagnosis (1) Acute hypoxemic respiratory failure Priority: Primary Status: Acute (2) Pneumonia Priority: Primary Status: Acute (3) Dementia Priority: Secondary Status: Chronic (4) Hypertension Priority: Secondary Status: Chronic (5) Acute kidney injury superimposed on chronic kidney disease Priority: Secondary Status: Resolved (6) Decubitus ulcer, heel Priority: Secondary Status: Chronic Prognosis: Fair Aware of Diagnosis: Patient, Family Aware of Prognosis: Patient, Family - Transfer Medications Prescriptions: Acetaminophen w/Cod 300-30 mg [Tylenol w/Codeine #3] 1 tab PO Q6H PRN 3 Days #10 tablet PRN Reason: Pain Home Medications: Metoprolol [Lopressor] 25 mg PO BID 10/31/15 [History] Donepezil [Aricept] 10 mg PO HS 06/05/17 [History] Docusate [Colace] 100 mg PO DAILY 10/07/17 [History] Albuterol Sulfate [Proair Hfa] 2 puff IH Q6H PRN 07/22/18 [History] Fexofenadine HCl [Allergy Relief] 180 mg PO DAILY 07/22/18 [History] Hydrochlorothiazide [Microzide] 12.5 mg PO DAILY 07/22/18 [History] Cholecalciferol (D-3) [Vitamin D] 1,000 unit PO DAILY #60 tablet 07/29/18 [Rx] Aspirin Enteric Coated [Aspirin EC] 81 mg PO DAILY 11/02/18 [History] Vit C/Vit E/Lutein/Min/[place]-3 [Ocuvite Softgel] 1 tab PO DAILY 11/02/18 [History] Acetaminophen [Tylenol] 1,000 mg PO Q8H PRN 11/03/18 [History] Atorvastatin [Lipitor] 40 mg PO DAILY 11/03/18 [History] Calcium Carbonate/Vitamin D3 [Calcium 600-Vit D3 200 Tablet] 1 tab PO DAILY 11/03/18 [History] Collagenase Oint [Santyl] 1 appl TP DAILY 11/03/18 [History] Magnesium Hydroxide [Milk of Magnesia] 2,400 mg PO DAILY PRN 11/03/18 [History] Mirtazapine 7.5 mg PO DAILY 11/03/18 [History] Multivitamin [One Daily Essential] 1 tab PO DAILY 11/03/18 [History] Ondansetron HCl 8 mg PO Q8H PRN 11/03/18 [History] Acetaminophen w/Cod 300-30 mg [Tylenol w/Codeine #3] 1 tab PO Q6H PRN 3 Days #10 tablet 11/07/18 [Rx] Amoxicillin/Clavulanate [Augmentin] 500 mg PO BIDWM #1 tablet 11/07/18 [Rx] Allergies/Adverse Reactions: Allergy/AdvReac Type Severity Reaction Status Date / Time Cyproheptadine Allergy Rash Verified 10/07/17 16:35 [From Periactin] Erythromycin Base Allergy Rash Verified 10/07/17 16:35 [From Ilosone] NSAIDS (Non-Steroidal Allergy Rash Verified 10/07/17 16:35 Anti-Inflamma nutri sweet Allergy Rash Uncoded 10/07/17 16:35 - Respiratory Orders Oxygen / L per min (2L, maintain O2 sats > 90%) Smoking Cessation: Smoking cessation has been advised. For more information, call the [place] Tobacco Quit Line at 6-703-WGVB-NOW. - Advance Directives Code Status: Full Code - Rehabiliation Orders Rehab Orders: Evaluation for Physical Therapy, Evaluation for Occupational Therapy - Diet Orders Regular CERTIFICATION: I certify that the transfer of the above named patient to an Extended Care Facility is necessary for the continuing treatment of the diagnosis listed. The above information is true and accurate reflection of patient's current condition. Confidential - Redisclosure prohibited without a patient's written consent.
[2018-11-07 12:20] VITALS: BP 151/79
== END 2018-11-07 12:19 | DRG 177 ==
LOC: 2NENU 08:53 → EMEROOARM 08:53 → 2NENU 12:31 → SUATTDRO 18:28 → 2ANU 11-04 09:50
PROVIDERS: ADMIT Hospitalist; ATTEND Internal Medicine